=== PATIENT | female | born 1985 | race Caucasian/White ===

== ENCOUNTER 2019-06-28 12:04 | Emergency (ER) | payer SELFPAY ==
[2019-06-28 12:24] VITALS: BP 140/87; PULSE 76; RESP 16; TEMP 36.7; O2SAT 98; BMI 51.0
--- NOTE | 2019-06-28 12:25 | ED_ITS ---
HPI - Extremity Injury (Upper) General: Chief Complaint: General Medical Stated Complaint: thumb pain Time Seen by Provider: 06/28/19 12:25 Source: patient Mode of arrival: ambulatory Limitations: no limitations History of Present Illness: HPI narrative: non-traumatic pain to L thumb x 1-2 days complaint: injury to: left and finger (thumb) Other injuries: none Handedness: left Severity: mild Relieving factors: immobilization Exacerbating factors: movement of extremity Associated symptoms: Reports no associated symptoms Review of Systems Musc: Reports: other (pain to L thumb); Denies: extremity swelling Skin/Breast: Denies: redness or skin swelling PFSH ED PFSH: Statuses (acute, chronic, etc) shown below reflect problem list status as previously entered and may not be historically accurate Medical History (Updated 06/28/19 @ 13:08 by FABIAN Emerson) Amphetamine dependence, in remission (Acute) Generalized anxiety disorder (Acute) Major depressive disorder, recurrent, in full remission (Acute) Nicotine dependence, cigarettes, uncomplicated (Acute) Opioid dependence, in remission (Acute) Sedative, hypnotic or anxiolytic dependence, in remission (Acute) Social History (Updated 06/21/19 @ 16:22 by Thais Najera) Smoking and tobacco status: current some day smoker cigarettes Years cigarettes smoked: 17 and e-cigarettes E-Cigarette Details: vaporizer device E-cig/vape details: all the time Quit status (tobacco): considering quitting Second hand smoke exposure: Yes Smoking risk assessment/counseling performed?: No Reason smoking risk assess ment not done: other Physical Exam Const: COMMON NORMALS: no apparent distress, oriented x3, alert and well nourished Extremity: OTHER: pt with TTP over L MCP thumb and over dorsal surface; full ROM; pain with Anayeli's; no redness/swelling/infection noted Neuro: COMMON NORMALS: oriented x3 SENSORIUM/ORIENTATION: Yes alert Skin: COMMON NORMALS: no rashes or lesions noted GENERAL SKIN EXAM: no rashes or lesions noted Course Vital Signs: Vital signs: Vital Signs Temperature 98.1 F 06/28/19 12:24 Pulse Rate 60 06/28/19 13:15 Respiratory Rate 20 H 06/28/19 13:15 Blood Pressure 149/98 06/28/19 13:15 Pulse Oximetry 98 06/28/19 13:15 MDM - Extremity Injury (Upper) Imaging Data^: L thumb: Radiologist's impression: [address] [address] XRay Report Signed Patient: Elana López Unit #: [id number] : 1985 Acct#:O [id number] Age/Sex: 34 / F ADM Date: 06/28/19 Loc: ER Room/Bed: Attending Dr: Ordering Provider/Ordering MD: Rosa Keene Date of Service: 06/28/19 Procedure(s): XR finger LT min 2V 04902 Accession Number(s): [id number] Report Number: [id number] PROCEDURE INFORMATION: Exam: XR Left Finger(s) Exam date and time: 06/28/2019 12:44 PM Age: 34 years old Clinical indication: Pain; Finger(s); Left; Additional info: Pain; Thumb TECHNIQUE: Imaging protocol: XR Left fingers. Views: Minimum 2 views. COMPARISON: No relevant prior studies available. FINDINGS: Bones/joints: No fracture. No dislocation. Soft tissues: No radiopaque foreign body. XR/XR finger LT min 2V 31862 IMPRESSION: No acute osseous abnormality. Dictated By: Jorgito Wolf Signed By: Jorgito Wolf Signed Date/Time: 06/28/19 1304 DD/ 1303 Discharge Plan Discharge Patient Disposition: Home, Self-Care Clinical Impression: Tendinitis of finger of left hand Condition: Stable Prescriptions: No Action fluoxetine [Prozac] 40 mg capsule 40 mg PO QAM RF: 0 bupropion HCl 150 mg tablet sustained-release 12 hr 150 mg PO QAM Qty: 30 RF: 2 Discharge Orders: Discharge Order (Routine); Ordered 06/28/19 Ordered By: Rosa Keene Referrals: Kenji Almazan MD [Primary Care Provider] - Discharge Diet: Usual diet Discharge Activity: Increase activity as tolerated Patient Instructions: Tendinitis (ED), Tendonitis Activity Restrictions/Additional Instructions: Follow up with primary care in 1-2 weeks for continued pain. Discharge Date/Time: 06/28/19 13:12 Coding Level of Care Code ED Superintendent System Operation for Chg Carla
--- NOTE | 2019-06-28 12:28 | XRR_ITS ---
PROCEDURE INFORMATION: Exam: XR Left Finger(s) Exam date and time: 06/28/2019 12:44 PM Age: 34 years old Clinical indication: Pain; Finger(s); Left; Additional info: Pain; Thumb TECHNIQUE: Imaging protocol: XR Left fingers. Views: Minimum 2 views. COMPARISON: No relevant prior studies available. FINDINGS: Bones/joints: No fracture. No dislocation. Soft tissues: No radiopaque foreign body. XR/XR finger LT min 2V 46084 IMPRESSION: No acute osseous abnormality.
--- NOTE | 2019-06-28 12:45 | PC.NURSE ---
inflammation and pain to right thumb
[2019-06-28 13:15] VITALS: BP 149/98; PULSE 60; RESP 20; O2SAT 98
== END 2019-06-28 13:12 | disposition home or self-care (01) ==
PROVIDERS: Emergency Provider Emergency Medicine; Family Provider Family Medicine; PCP Family Medicine
DX: M77.9 Enthesopathy, unspecified (principal); F17.210 Nicotine dependence, cigarettes, uncomplicated
CPT/HCPCS: 73140; 99281; 99282

== ENCOUNTER 2019-09-08 15:46 | Emergency (ER) | payer SELFPAY ==
[2019-09-08 16:07] VITALS: BP 142/86; PULSE 81; RESP 16; TEMP 36.4; O2SAT 97; BMI 44.2
--- NOTE | 2019-09-08 16:08 | ED_ITS ---
Entered by Cathleen Leger, acting as scribe for Brenda Mcdonald Sep 08, 2019 15:46 HPI - General Adult General: Chief complaint: General Medical Stated complaint: SORE THROAT Time Seen by Provider: 09/08/19 16:05 Source: patient and RN notes reviewed Mode of arrival: ambulatory Limitations: no limitations History of Present Illness: HPI narrative: 34 yo female presents to ED with complaints of a sore throat. She said this began today. She denies cough, fever, muscle aches or pains or any other complaints. MD complaint: sore throat Onset (ago): hour(s) (today) Location: neck (throat) Radiation: non-radiation Severity: mild Quality: aching Pain Consistency: constant Relieving factors: none Exacerbating factors: none Associated symptoms: Reports no associated symptoms; Deny confusion, diaphoresis, dyspnea, headache(s) or malaise Treatments prior to arrival: none Review of Systems General: Reports: other (negative unless marked) Const: Denies: fever, chills, body aches, fatigue, malaise or diaphoresis ENMT: Denies: throat pain, painful swallowing, hoarseness, ear pain, ear discharge or nasal discharge Resp: Denies: shortness of breath, productive cough, non-productive cough, wheezing, coughing up blood or chest congestion Neuro: Denies: headache, numbness in extremities, weakness in extremities, changes in sensation, lack of coordination, difficulty walking, dizziness, vertigo or confusion Endo: Denies: excessive thirst, tired all the time, cold intolerance, excessive sweating, flushing or hot flashes Ishmael/Lymph: Denies: easy bruising, easy bleeding, petechiae or enlarged lymph nodes All/Imm: Denies: hives, throat swelling, tongue swelling, facial swelling or acute wheezing PFS ED PFSH: Medical History (Updated 09/08/19 @ 17:47 by Brenda Mcdonald) Amphetamine dependence, in remission Generalized anxiety disorder Major depressive disorder, recurrent, in full remission Nicotine dependence, cigarettes, uncomplicated Opioid dependence, in remission Sedative, hypnotic or anxiolytic dependence, in remission Social History (Updated 06/21/19 @ 16:22 by Thais Najera) Smoking and tobacco status: current every day smoker cigarettes Years cigarettes smoked: 17 and e-cigarettes E-Cigarette Details: vaporizer device E- cig/vape details: all the time Quit status (tobacco): considering quitting Second hand smoke exposure: Yes Smoking risk assessment/counseling performed?: No Reason smoking risk assessment not done: other Physical Exam Const: COMMON NORMALS: no apparent distress, oriented x3, no limitations, healthy appearing and well nourished EXAM LIMITATIONS: no altered mental status GENERAL APPEARANCE: cooperative, well kempt and well developed ORIENTATION/CONSCIOUSNESS: Yes awake HENMT: COMMON NORMALS: normocephalic, head/scalp atraumatic, hearing grossly normal bilaterally, external ears normal, EAC's normal, external nose normal and moist oral mucous membranes HEAD & SCALP: normocephalic and atraumatic FACE & SINUS: normal facial exam and face symmetric NOSE: external nose normal and nares normal EXTERNAL EAR: Yes external ears normal EXTERNAL AUDITORY CANAL: EAC's normal MOUTH: oral and palatal mucosa normal and tongue normal Eye: COMMON NORMALS: PERRL, EOMs intact bilaterally, conjunctivae normal and no scleral icterus GENERAL EYE: normal appearance of both eyes and normal light reflex CONJUNCTIVA: Yes conjunctivae normal SCLERA: sclerae normal CORNEA: Yes corneas normal PUPIL: Yes PERRL DIRECT OPHTHALMOSCOPY: Yes normal light reflex Neck/C-Spine: COMMON NORMALS: full ROM, no lymphadenopathy, supple, no meningeal signs and no JVD GENERAL: Yes normal visual inspection and Yes trachea midline CERVICAL SPINE: Yes cervical ROM normal Chest: COMMONS NORMALS: inspection of chest normal and palpation of chest normal Resp: COMMON NORMALS: normal respiratory effort, no retractions, no use of accessory muscles and clear to auscultation bilaterally EFFORT & INSPECTION: Yes able to speak in complete sentences AUSCULTATION: clear to auscultation bilaterally Cardio: COMMON NORMALS: no JVD, regular rate, regular rhythm, S1 normal heart sound, S2 normal heart sound, no gallops, no clicks, no murmurs and no rub JUGULAR VENOUS DISTENTION: no JVD RATE: regular rate RHYTHM: regular rhythm HEART SOUNDS: S1 normal and S2 normal GI: COMMON NORMALS: soft to palpation, non-tender, no hepatosplenomegaly and no masses INSPECTION: Yes normal to inspection PALPATION: Yes soft and Yes no hepatosplenomegaly : COMMON NORMALS: Yes no CVA tenderness BLADDER/KIDNEY EXAM: Yes no CVA tenderness Back/Pelvis: COMMON NORMALS: no CVA tenderness, thoracic and lumbar spine normal to inspection, no thoracic nor lumbar tenderness and thoraco-lumbar ROM normal Extremity: COMMON NORMALS: normal to inspection, full ROM, normal capillary refill, no joint enlargement, no clubbing, cyanosis or edema and no calf tenderness Neuro: COMMON NORMALS: oriented x3 MENINGEAL SIGNS: Yes no meningeal signs Psych: APPEARANCE: Yes well kempt Skin: COMMON NORMALS: no rashes or lesions noted, skin turgor normal, no jaundice, no petechiae and no mottling GENERAL SKIN EXAM: no rashes or lesions noted and turgor normal Course Vital Signs: Vital signs: Vital Signs Temperature 97.9 F 09/08/19 17:56 Pulse Rate 74 09/08/19 17:56 Respiratory Rate 16 09/08/19 17:56 Blood Pressure 125/67 09/08/19 17:56 Pulse Oximetry 97 09/08/19 16:07 MDM - General Adult MDM Narrative: Medical decision making narrative: Patient has a sore throat but no difficulty swallowing. I see no evidence of peritonsillar abscess, retropharyngeal abscess or deep space throat infection. She has mild pharyngeal erythema. She has no high risk exposures and declines COVID-19 testing at this time. Lab Data: Attestation: I reviewed the patient's lab results. Labs: Lab Results 09/08/19 09/08/19 Range/Units 16:17 16:17 Influenza Type A A g Negative (Negative) POC Influenza B Ag Negative (Negative) Group A Strep Rapi d Negative (Negative) Discharge Plan Discharge Patient Disposition: Home, Self-Care Clinical Impression: Pharyngitis Qualifiers: Pharyngitis/tonsillitis etiology: unspecified etiology Qualified Code(s): J02.9 - Acute pharyngitis, unspecified Condition: Stable Prescriptions: New amoxicillin 500 mg capsule 500 mg PO TID 10 Days Qty: 30 RF: 0 No Action fluoxetine [Prozac] 40 mg capsule 40 mg PO QAM RF: 0 Discharge Orders: Discharge Order (Routine); Ordered 09/08/19 Ordered By: Brenda Mcdonald Referrals: Kenji Almazan MD [Primary Care Provider] - 1-3 days Discharge Diet: Advance as tolerated Discharge Activity: Increase activity as tolerated Patient Instructions: Pharyngitis (ED) Activity Restrictions/Additional Instructions: Please return to the ER immediately for any of the signs or symptoms listed on your discharge instruction sheets, worsening/changing of your symptoms, you are not getting better as quickly as expected, or for ANY other cause or concerns. If you change your mind and want COVID-19 testing return to the ER for testing. Discharge Date/Time: 09/08/19 17:56 Coding Level of Care Code ED Medical Reviewer for Chg Fwd Exam Comprehensive The documentation recorded by the Arsen castanon Valerie R, accurately reflects the service I personally performed and the decisions made by , Brenda Mcdonald Sep 08, 2019 15:46
[2019-09-08 17:22] LABS: Rapid Strep A Test Negative (Negative)
[2019-09-08 17:33] LABS: Influenza A by IFA Negative (Negative); Influenza B by IFA Negative (Negative)
[2019-09-08 17:56] VITALS: BP 125/67; PULSE 74; RESP 16; TEMP 36.6
== END 2019-09-08 17:56 | disposition home or self-care (01) ==
PROVIDERS: Emergency Provider Emergency Medicine; Family Provider Family Medicine; PCP Family Medicine
DX: J02.9 Acute pharyngitis, unspecified (principal); F17.210 Nicotine dependence, cigarettes, uncomplicated
CPT/HCPCS: 12345; 87081; 87804; 87880; 99282

== ENCOUNTER 2020-04-09 20:00 | Outpatient (CLI) | payer SELFPAY | END 2020-04-09 20:01 | disposition home or self-care (01) | LOC: SLEEP 04-10 08:57 | PROVIDERS: Family Provider Family Medicine; Visit Provider Psychiatry & Neurology Psychiatry | DX: G47.33 Obstructive sleep apnea (adult) (pediatric) (principal) | CPT/HCPCS: 95810 ==

== ENCOUNTER 2020-06-17 08:47 | Emergency (ER) | payer SELFPAY ==
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
[2020-06-17 08:54] VITALS: BP 164/82; PULSE 89; RESP 18; TEMP 36.6; O2SAT 100; BMI 53.1
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
[2020-06-17 09:36] VITALS: BP 137/68; RESP 18; O2SAT 97
== END 2020-06-17 09:38 | disposition home or self-care (01) ==
PROVIDERS: Emergency Provider Physician Assistant
DX: S60.041A Contusion of right ring finger without damage to nail, initial encounter (principal); Y04.2XXA Assault by strike against or bumped into by another person, initial encounter; F17.290 Nicotine dependence, other tobacco product, uncomplicated
CPT/HCPCS: 12345; 73140; 99281; 99282

== ENCOUNTER 2020-06-27 20:00 | Outpatient (CLI) | payer SELFPAY | END 2020-06-27 20:01 | disposition home or self-care (01) | LOC: SLEEP 06-28 10:09 | PROVIDERS: Visit Provider Psychiatry & Neurology Psychiatry | DX: G47.33 Obstructive sleep apnea (adult) (pediatric) (principal) | CPT/HCPCS: 95811 ==

== ENCOUNTER → 2020-09-03 13:04 | Outpatient (BNVA) | payer MEDICAID, SELFPAY | PROVIDERS: Visit Provider Nurse Practitioner Family | DX: Z20.822 Contact with and (suspected) exposure to COVID-19 (principal) | CPT/HCPCS: 87635 ==

== ENCOUNTER → 2020-09-12 14:00 | Outpatient (BNVA) | payer SELFPAY | PROVIDERS: Visit Provider Psychiatry & Neurology Psychiatry | DX: F33.42 Major depressive disorder, recurrent, in full remission (principal); F41.1 Generalized anxiety disorder; G47.33 Obstructive sleep apnea (adult) (pediatric); F15.21 Other stimulant dependence, in remission; F11.21 Opioid dependence, in remission; F13.21 Sedative, hypnotic or anxiolytic dependence, in remission; F17.210 Nicotine dependence, cigarettes, uncomplicated | CPT/HCPCS: 99214 ==

== ENCOUNTER 2020-10-02 14:57 | Emergency (ER) | payer SELFPAY ==
[2020-10-02 14:58] VITALS: BP 127/96; PULSE 110; RESP 16; TEMP 36.7; O2SAT 97; BMI 52.7
[2020-10-02 15:11] VITALS: BP 127/96; PULSE 106; O2SAT 96
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
[2020-10-02 15:53] VITALS: BP 155/101; PULSE 106; O2SAT 98
== END 2020-10-02 15:54 | disposition home or self-care (01) ==
LOC: ER 15:45
PROVIDERS: Emergency Provider Family Medicine; PCP Family Medicine
DX: T65.91XA Toxic effect of unspecified substance, accidental (unintentional), initial encounter (principal); F41.8 Other specified anxiety disorders; F17.210 Nicotine dependence, cigarettes, uncomplicated
CPT/HCPCS: 99283

== ENCOUNTER 2020-10-02 16:45 | Inpatient (IN) | payer SELFPAY ==
[2020-10-02 16:47] VITALS: BP 164/99; PULSE 109; RESP 18; O2SAT 97; BMI 52.7
--- NOTE | 2020-10-02 17:18 | W.ED.PSYCH ---
HPI - Psych General: Chief Complaint: Psychiatric Symptoms Stated Complaint: 96 Time Seen by Provider: 10/02/20 16:52 History of Present Illness: HPI Narrative: 31 yo female presents to the emergency room. She was here within the hour. She had taken extra Prozac in an attempt to calm herself down anticipating it would work like an antianxiety medicine in the short-term. She denies any suicidal or homicidal ideation. Reviewed the case with psychiatry and they recommended discharge and short-term follow-up with behavioral health where she sees Dr. Michel. At the time we are seeing her the family evidently was signing affidavits that the court house and shortly thereafter she returned and now has a 96-hour hold. MD complaint: feels depressed Duration: intermittent Relieving factors: none Exacerbating factors: none Associated symptoms: Deny auditory hallucinations, visual hallucinations, delusions, depression, homicidal ideation, suicidal ideation or racing thoughts Review of Systems Const: Denies: fever(s), chills, body aches, change in appetite, fatigue or malaise ENMT: Denies: throat pain, ear or mastoid pain, nasal discharge or nasal congestion Card: Denies: chest pain, edema, dyspnea on exertion or orthopnea Resp: Denies: dyspnea, productive cough or non-productive cough GI: Denies: abdominal pain, nausea, vomiting, hematemesis, coffee ground emesis, diarrhea, constipation, bloating, hematochezia or melena : Denies: flank pain, difficulty voiding, dysuria, urinary frequency or urinary urgency Skin/Breast: Denies: rash or pruritus Psych: Denies: depression, visual hallucinations, auditory hallucinations, suicidal ideation or homicidal ideation [facility] ED PFSH: Medical History Amphetamine dependence, in remission Generalized anxiety disorder Major depressive disorder, recurrent, in full remission Nicotine dependence, cigarettes, uncomplicated Opioid dependence, in remission Sedative, hypnotic or anxiolytic dependence, in remission Social History Smoking and tobacco status: current every day smoker cigarettes Years cigarettes smoked: 17 and e-cigarettes E-Cigarette Details: vaporizer device E-cig/vape details: all the time Quit status (tobacco): considering quitting Second hand smoke exposure: Yes Smoking risk assessment/counseling performed?: No Reason smoking risk assessment not done: other Physical Exam Const: COMMON NORMALS: no acute distress GENERAL APPEARANCE: cooperative and comfortable ORIENTATION/CONSCIOUSNESS: Yes awake, Yes oriented to person, Yes oriented to place and Yes oriented to time HENMT: COMMON NORMALS: normocephalic, atraumatic, hearing grossly normal bilaterally, external ears normal, EAC's normal, TM's normal bilaterally, Normal nasal mucous membranes and turbinates present, moist oral mucous membranes and oropharynx normal HEAD & SCALP: normocephalic and atraumatic NOSE: Normal nasal mucous membranes and turbinates present EXTERNAL EAR: Yes external ears normal EXTERNAL AUDITORY CANAL: EAC's normal TYMPANIC MEMBRANE: TM's normal bilaterally Eye: COMMON NORMALS: Equal, round and reactive pupils present, EOMs intact bilaterally, conjunctivae normal and no scleral icterus CONJUNCTIVA: Yes conjunctivae normal PUPIL: Yes Equal, round and reactive pupils present Neck/C-Spine: COMMON NORMALS: full ROM, no lymphadenopathy, supple and no JVD Lymph: LYMPHATIC: no lymphadenopathy noted and no lymphedema noted Resp: COMMON NORMALS: normal respiratory effort, No retractions, No use of accessory muscles and clear to auscultation bilaterally AUSCULTATION: clear to auscultation bilaterally Cardio: COMMON NORMALS: no JVD, regular rate, regular rhythm and No murmurs present (Cardio) RATE: regular rate RHYTHM: regular rhythm GI: COMMON NORMALS: Soft to palpation and No hepatosplenomegaly present AUSCULTATION: Yes normoactive bowel sounds PALPATION: Yes Soft to palpation, No Tenderness to palpation present (GI), No Guarding due to palpation present (GI) and Yes No hepatosplenomegaly present Extremity: COMMON NORMALS: normal to inspection, capillary refill normal, no clubbing, cyanosis or edema, no calf tenderness and no pedal edema Neuro: SENSORIUM/ORIENTATION: Yes oriented to person, Yes oriented to place and Yes oriented to time Psych: THOUGHT CONTENT: No delusions Skin: COMMON NORMALS: no rashes or lesions noted GENERAL SKIN EXAM: no rashes or lesions noted MDM - Psych MDM Narrative: Medical decision making narrative: Discussed with Dr. Ely. Reviewed that the patient had been here just within the last hour. He wished to place patient on the MPU floor on a 96-hour hold if I will reevaluate morning. Orders are written. Discharge Plan Discharge Patient Disposition: Admitted As Inpatient Admit Provider: Lisy Ely Clinical Impression: Depressive disorder Condition: Stable Discharge Diet: Regular Discharge Activity: Resume usual activity Coding Level of Care Code ED Director Medical Safety for Geoffrey Aguirre
[2020-10-02 18:20] LABS: Basophils % 0.3 %; Eosinophils % 0.4 %; Hematocrit 45.7 % (37.0-47.0); Hemoglobin 15.1 g/dL (11.5-15.3); Lymphocytes # 2.3 10^3/uL (0.8-4.8); Lymphocytes % 22.8 %; Mean Corpuscular Hemoglobin 30.3 pg (28.0-34.0); Mean Corpuscular Volume 91.8 fL (81-99); Mean Platelet Volume 10.9 fL (7.4-10.4); Monocytes # 0.6 10^3/uL (0.2-0.9); Monocytes % 5.8 %; Neutrophils % 70.4 %; Nucleated Red Blood Cells % 0 %; Platelet Count 301 10^3/cmm (130-400); Red Blood Count 4.98 10^6/uL (4.1-5.3); Red Cell Distribution Width 13.2 % (12.1-15.1)
[2020-10-02 18:28] LABS: Alanine Aminotransferase 40 U/L (0-33); Albumin Level 4.6 g/dL (3.5-5.2); Alkaline Phosphatase 126 IU/L (35-105); Anion Gap 14.7 (5-19); Aspartate Amino Transferase 26 U/L (0-32); Blood Urea Nitrogen 8 mg/dL (6-20); Calcium 9.3 mg/dL (8.5-10.5); Carbon Dioxide 25 mmol/L (22-29); Chloride 102 mmol/L (98-107); Globulin 3.1 g/dL (1.3-4.6); Glomerular Filtration Rate 82.1 mL/min (90-130); Glucose 125 mg/dL (65-115); Osmolality Calculated 286 mOsm/kg (285-295); Potassium 3.7 mmol/L (3.5-5.1); Sodium 138 mmol/L (136-145); Total Bilirubin 0.7 mg/dL (0.15-1.2); Total Protein 7.7 g/dL (6.6-8.7)
[2020-10-02 18:29] LABS: Acetaminophen < 5.0 ug/mL (10-30); Salicylate < 0.3 mg/dL (3-10)
[2020-10-02 18:36] LABS: Amphetamines Screen Urine Positive (Negative); Barbiturates Screen Urine Negative (Negative); Benzodiazepines Screen Urine Positive (Negative); Cocaine Screen Urine Negative (Negative); Opiate Screen Urine Negative (Negative); PCP Screen Urine Negative (Negative); THC Screen Urine Positive (Negative)
[2020-10-02 21:39] VITALS: BP 153/103; PULSE 78; RESP 18; TEMP 37.2; O2SAT 100
[2020-10-02 22:00] VITALS: BP 153/103; PULSE 78; RESP 18; TEMP 37.2; O2SAT 100
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
[2020-10-03 06:00] VITALS: BP 143/92; PULSE 81; RESP 15; TEMP 36.9; O2SAT 96
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
[2020-10-03 10:29] VITALS: BP 143/92; PULSE 81; RESP 15; TEMP 36.9; O2SAT 96
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
--- NOTE | 2020-10-05 15:53 | PC.RESP ---
Smoking Cessation information sent to patient.
== END 2020-10-03 11:06 | disposition home or self-care (01) | DRG 882 ==
LOC: ER 17:37 → NP 17:46
PROVIDERS: Admitting Provider Psychiatry & Neurology Psychiatry; Emergency Provider Family Medicine; PCP Family Medicine; Visit Provider Psychiatry & Neurology Psychiatry
DX: F43.23 Adjustment disorder with mixed anxiety and depressed mood (principal); F19.10 Other psychoactive substance abuse, uncomplicated; F12.10 Cannabis abuse, uncomplicated; F32.9 Major depressive disorder, single episode, unspecified; F41.1 Generalized anxiety disorder; Z91.14 Patient's other noncompliance with medication regimen; F17.210 Nicotine dependence, cigarettes, uncomplicated; Z91.5 Personal history of self-harm; F17.290 Nicotine dependence, other tobacco product, uncomplicated
CPT/HCPCS: 80053; 80306; 80307; 85025; 99285

== ENCOUNTER 2021-01-26 19:03 | Emergency (ER) | payer MEDICAID, SELFPAY ==
[2021-01-26 19:17] VITALS: BP 159/85; PULSE 69; RESP 17; TEMP 36.7; O2SAT 98; BMI 49.2
--- NOTE | 2021-01-26 19:23 | W.ED.EYEPROB ---
HPI - Eye Problem General: Chief complaint: Eye Problems Stated complaint: Dog Scatched Eye Ball\Medicine is burning Time Seen by Provider: 01/26/21 19:22 History of Present Illness: HPI Narrative: Patient is a 36-year-old female comes to the ED with an injury. Patient was scratched by her dog on the left eye this morning. Patient went to urgent care and was evaluated there and diagnosed with a corneal abrasion and discharged home with a prescription for ofloxacin eyedrops. Return to the ED due to the pain in her left eye and says the eyedrops cause burning in her left eye right after use. Patient is up-to-date on her tetanus. Associated symptoms: Denies fever(s), headache(s), nausea, neck pain or vomiting Review of Systems Const: Denies: fever(s), chills or fatigue Eyes: Reports: blurry vision (left eye), eye discomfort (left eye) and eye redness (left eye); Denies: change in vision ENMT: Denies: throat pain, odynophagia, nasal discharge or nasal congestion Card: Denies: chest pain, palpitations, edema, swelling of feet/ankles, dyspnea on exertion or orthopnea Resp: Denies: dyspnea, productive cough or non-productive cough GI: Denies: abdominal pain, nausea, vomiting, diarrhea, constipation or hematochezia : Denies: flank pain, dysuria or hematuria Musc: Denies: neck pain, back pain or extremity swelling Skin/Breast: Denies: rash or new lesions Neuro: Denies: headache(s), numbness in extremities or weakness in extremities PFSH ED PFSH: Medical History Amphetamine dependence, in remission Generalized anxiety disorder Major depressive disorder, recurrent, in full remission Nicotine dependence, cigarettes, uncomplicated Opioid dependence, in remission Sedative, hypnotic or anxiolytic dependence, in remission Social History Smoking and tobacco status: current every day smoker cigarettes Years cigarettes smoked: 17 and e-cigarettes E-Cigarette Details: vaporizer device E-cig/vape details: all the time Quit status (tobacco): considering quitting Second hand smoke exposure: Yes Smoking risk assessment/counseling performed?: No Reason smoking risk assessment not done: other Physical Exam Const: COMMON NORMALS: patient oriented x3 and alert GENERAL APPEARANCE: cooperative; not comfortable (Patient appears uncomfortable due to left eye pain) HENMT: COMMON NORMALS: normocephalic HEAD & SCALP: normocephalic MOUTH: Normal oral and palatal mucosa present THROAT: posterior oropharynx normal and uvula midline Eye: COMMON NORMALS: Equal, round and reactive pupils present and EOMs intact bilaterally PERIORBITAL: periorbital findings normal CONJUNCTIVA: Yes conjunctival abnormal positive left conjunctival injection diffuse CORNEA: Yes fluorescein used (Corneal abrasion noted after fluorescein dye and lamp exam) PUPIL: Yes Equal, round and reactive pupils present SLIT LAMP EXAM: Yes slit lamp exam performed with fluorescein OTHER: Patient has a corneal abrasion on left eye. Neck/C-Spine: COMMON NORMALS: supple GENERAL: Yes normal visual inspection Resp: COMMON NORMALS: normal respiratory effort, No retractions, No use of accessory muscles and clear to auscultation bilaterally AUSCULTATION: clear to auscultation bilaterally Cardio: COMMON NORMALS: regular rate, regular rhythm, S1 normal heart sound present, S2 normal heart sound present, No gallops present (Cardio), No clicks present (Cardio), No murmurs present (Cardio) and Peripheral pulses 2+ throughout RATE: regular rate RHYTHM: regular rhythm HEART SOUNDS: S1 normal heart sound present and S2 normal heart sound present PERIPHERAL PULSES: Peripheral pulses 2+ throughout GI: COMMON NORMALS: Normal to inspection, nondistended, normoactive bowel sounds present, Soft to palpation, non-tender and no masses PALPATION: Yes Soft to palpation : COMMON NORMALS: Yes no CVA tenderness BLADDER/KIDNEY EXAM: Yes no CVA tenderness Back/Pelvis: COMMON NORMALS: no CVA tenderness Extremity: COMMON NORMALS: normal to inspection Neuro: COMMON NORMALS: patient oriented x3 and moves all extremities SENSORIUM/ORIENTATION: Yes alert Skin: GENERAL SKIN EXAM: dry skin Course Vital Signs: Vital signs: Vital Signs Temperature 98.1 F 01/26/21 19:17 Pulse Rate 69 01/26/21 19:17 Respiratory Rate 17 01/26/21 19:17 Blood Pressure 159/85 01/26/21 19:17 Pulse Oximetry 98 01/26/21 19:17 MDM - Eye Problem MDM Narrative: Medical decision making narrative: Patient is a 36-year-old female who comes to the ED with left eye injury. Puppy scratched patient's left eye with paw. Exam using fluorescein dye and lamp shows corneal abrasion on left eye. Patient was given a dose of erythromycin eye ointment and hydrocodone while here in the ED. Patient was discharged with a prescription for erythromycin eye ointment and a written prescription for hydrocodone 5/325 mg #8 tablets for pain. She was told to follow-up with Dr. Waddell at his clinic on Thursday and I gave her the contact information to Dr. Waddell clinic. Return to ED precautions given. Patient understood and agree with plan. Discharge Plan Discharge Patient Disposition: Home Clinical Impression: Corneal abrasion Qualifiers: Encounter type: initial encounter Laterality: left Qualified Code(s): S05.02XA - Injury of conjunctiva and corneal abrasion without foreign body, left eye, initial encounter Condition: Stable Prescriptions: New erythromycin 5 mg/gram (0.5 %) ointment 1 applic ophthalmic (eye) Q6H 7 Days Qty: 3.5 RF: 0 No Action ofloxacin 0.3 % drops 2 drp ophthalmic (eye) QID 7 Days Qty: 5 RF: 0 fluoxetine [Prozac] 20 mg capsule 20 mg PO DAILY Qty: 30 RF: 11 Discharge Orders: Discharge ED (Routine); Ordered 01/26/21 Ordered By: Willem Child Referrals: Kenji Almazan MD [Primary Care Provider] - Discharge Diet: Regular Discharge Activity: Resume usual activity Patient Instructions: Erythromycin (Into the eye), Corneal Abrasion (ED), Opioid Safety Activity Restrictions/Additional Instructions: Follow-up with medical provider as directed. Call Dr. Waddell eye clinic on Thursday phone number is [phone]. Address is [facility] [address] Jim Uribe. take medications as prescribed. Return to the ER or your medical provider if condition worsens. Please read and understand discharge instructions. If any questions, please ask. Coding Level of Care Code ED Heavy Duty Diesel Mechanic for Geoffrey Fwyen Exam Comprehensive
[2021-01-26] MEDS: tetracaine 0.5% Op Soln 4 mL Btl 1 DROP EYE-LEFT (19:50)
[2021-01-26] MEDS: eye irrigation 30 mL Btl EYE-LEFT (19:50)
[2021-01-26] MEDS: fluorescein 1 mg Strip EYE-LEFT (19:50)
[2021-01-26] MEDS: HYDROcodone-acetaminophen 7.5-325 mg Tablet 1 TAB PO (20:37)
[2021-01-26] MEDS: neomycin-poly-dex Op oint 3.5 gm 1 APPLIC EYE-LEFT (20:45)
== END 2021-01-26 21:17 | disposition home or self-care (01) ==
PROVIDERS: Emergency Provider Physician Assistant; PCP Family Medicine
DX: S05.02XA Injury of conjunctiva and corneal abrasion without foreign body, left eye, initial encounter (principal); F17.210 Nicotine dependence, cigarettes, uncomplicated; W54.8XXA Other contact with dog, initial encounter
CPT/HCPCS: 99283

== ENCOUNTER → 2021-05-28 07:24 | Outpatient (BNVA) | payer BC, SELFPAY | PROVIDERS: PCP Family Medicine; Visit Provider Psychiatry & Neurology Psychiatry | DX: F33.42 Major depressive disorder, recurrent, in full remission (principal); F41.1 Generalized anxiety disorder; G47.33 Obstructive sleep apnea (adult) (pediatric); F13.21 Sedative, hypnotic or anxiolytic dependence, in remission; F15.21 Other stimulant dependence, in remission; F11.21 Opioid dependence, in remission; F17.210 Nicotine dependence, cigarettes, uncomplicated | CPT/HCPCS: 99213 ==

== ENCOUNTER 2021-06-30 03:52 | Emergency (ER) | payer BC, MEDICAID, SELFPAY ==
[2021-06-30 03:59] VITALS: BP 133/84; PULSE 99; RESP 18; TEMP 36.6; O2SAT 99; BMI 51.2
--- NOTE | 2021-06-30 04:05 | XRR_ITS ---
PROCEDURE INFORMATION: Exam: XR Right Foot Exam date and time: 06/30/2021 4:05 AM Age: 36 years old Clinical indication: Pain and injury or trauma; Fall; Sprain or strain; Foot; Right; Additional info: Fall 2 days ago TECHNIQUE: Imaging protocol: XR Right foot. Views: 3 or more views. COMPARISON: No relevant prior studies available. FINDINGS: Bones/joints: There is no acute fracture or dislocation. If symptoms persist, follow-up imaging in several days may be useful to exclude an occult fracture. No other significant acute bone or joint abnormality. Soft tissues: Prominent soft tissue swelling over the lateral aspect of the ankle and hindfoot, and the medial hindfoot. Evidence for apparent ankle joint effusion. XR/XR foot RT min 3V* [id number] IMPRESSION: 1. No definite acute fracture or dislocation. 2. Suspected ankle joint effusion. 3. Other findings discussed above
--- NOTE | 2021-06-30 04:05 | XRR_ITS ---
PROCEDURE INFORMATION: Exam: XR Right Ankle Exam date and time: 06/30/2021 4:05 AM Age: 36 years old Clinical indication: Pain and injury or trauma; Sprain or strain; Ankle; Right; Injury details: Fall 2 days ago TECHNIQUE: Imaging protocol: XR Right ankle. Views: 3 or more views. COMPARISON: No relevant prior studies available. FINDINGS: Bones/joints: On the AP view only, subtle 1.5 mm ossific density adjacent to the tip of the medial malleolus. This could represent evidence for a subtle avulsion injury/fracture, although this could be a chronic appearance. Please correlate clinically. There is no other acute fracture or dislocation. If symptoms persist, follow-up imaging in several days may be useful to exclude an occult fracture. No other significant acute bone or joint abnormality. Soft tissues: Prominent soft tissue swelling over the lateral aspect of the ankle and hindfoot. Evidence for apparent ankle joint effusion. XR/XR ankle RT min 3V* [id number] IMPRESSION: 1. Subtle 1.5 mm ossific density adjacent to the tip of the medial malleolus. This could represent evidence for a subtle avulsion injury/fracture, although this could be a chronic appearance. Please correlate clinically. 2. No other definite acute fracture or dislocation. 3. Suspected ankle joint effusion. 4. Other findings discussed above
--- NOTE | 2021-06-30 04:06 | W.ED.FALL ---
HPI - Fall General: Chief Complaint: Fall Stated Complaint: fell on ankle Time Seen by Provider: 06/30/21 03:54 Source: patient Mode of arrival: ambulatory Limitations: no limitations History of Present Illness: HPI Narrative: 36-year-old female states that she was on the couch Thursday foot was asleep set up and twisted her right ankle when she stood up. States she had fell and having right ankle pain since then states she has been able to walk but has pain with walking on that foot. States pain is over the lateral ankle and the lateral foot she rates her pain a 4/10 worse with ambulation improved with rest denies any knee pain or any other injuries from her fall. Associated symptoms-after fall: Denies abdominal pain, chest pain or headache(s) Review of Systems Const: Denies: fever(s), chills, body aches or change in appetite Eyes: Denies: blurry vision or eye discomfort ENMT: Denies: throat pain or dental pain Card: Denies: chest pain Resp: Denies: dyspnea GI: Denies: abdominal pain, nausea, vomiting or diarrhea : Denies: dysuria Musc: Reports: extremity pain Skin/Breast: Denies: rash Neuro: Denies: headache(s) Psych: Denies: depression Ishmael/Lymph: Denies: easy bruising All/Imm: Denies: urticaria PFS ED PFSH: Medical History Amphetamine dependence, in remission Generalized anxiety disorder Major depressive disorder, recurrent, in full remission Nicotine dependence, cigarettes, uncomplicated Opioid dependence, in remission Psychiatric care Sedative, hypnotic or anxiolytic dependence, in remission Social History Smoking and tobacco status: current every day smoker (.5 pack a day ) cigarettes Packs smoked per day: 0.5 Years cigarettes smoked: 17 and e-cigarettes E-Cigarette Details: vaporizer device E-cig/vape details: all the time Quit status (tobacco): considering quitting Second hand smoke exposure: Yes Smoking risk assessment/counseling performed?: No Reason smoking risk assessment not done: other Physical Exam Const: COMMON NORMALS: no acute distress, patient oriented x3 and healthy appearing HENMT: COMMON NORMALS: normocephalic and atraumatic HEAD & SCALP: normocephalic and atraumatic Eye: COMMON NORMALS: Equal, round and reactive pupils present and EOMs intact bilaterally PUPIL: Yes Equal, round and reactive pupils present Neck/C-Spine: COMMON NORMALS: full ROM and supple Chest: COMMONS NORMALS: normal inspection of the chest and normal palpation of entire chest wall Resp: COMMON NORMALS: normal respiratory effort, No retractions, No use of accessory muscles and clear to auscultation bilaterally AUSCULTATION: clear to auscultation bilaterally Cardio: COMMON NORMALS: regular rate, regular rhythm and No murmurs present (Cardio) RATE: regular rate RHYTHM: regular rhythm GI: COMMON NORMALS: Normal to inspection, nondistended, normoactive bowel sounds present, Soft to palpation, non-tender and no masses PALPATION: Yes Soft to palpation Extremity: COMMON NORMALS: normal to inspection and full ROM NARRATIVE EXTREMITY EXAM: slight tenderness over right lateral foot and ankle Neuro: COMMON NORMALS: patient oriented x3, moves all extremities and no focal motor deficits Psych: COMMON NORMALS: mental status grossly normal, Normal thought process present and cooperative THOUGHT PROCESS: Normal thought process present Skin: COMMON NORMALS: no rashes or lesions noted and no wounds GENERAL SKIN EXAM: no rashes or lesions noted Course Vital Signs: Vital signs: Vital Signs Temperature 98 F 06/30/21 03:59 Pulse Rate 99 06/30/21 03:59 Respiratory Rate 18 06/30/21 03:59 Blood Pressure 133/84 06/30/21 03:59 Pulse Oximetry 99 06/30/21 03:59 MDM - Fall MDM Narrative: Medical decision making narrative: Patient presents here with ankle and foot pain from a fall. X-rays here shows no acute fractures likely an ankle sprain placed in Jasmeet wrap here she is to weight-bear as tolerated we will get her crutches placed on Naprosyn she is to follow-up PCP and return if worsening. Discharge Plan Discharge Patient Disposition: Home Clinical Impression: Sprain of ankle Qualifiers: Encounter type: initial encounter Involved ligament of ankle: unspecified ligament Laterality: right Qualified Code(s): S93.401A - Sprain of unspecified ligament of right ankle, initial encounter Condition: Stable Prescriptions: New Naprosyn 500 mg tablet 500 mg PO BID PRN (Reason: pain) Qty: 20 RF: 0 No Action fluoxetine [Prozac] 20 mg capsule 20 mg PO DAILY Qty: 30 RF: 11 Discharge Orders: Discharge ED (Routine); Ordered 06/30/21 Ordered By: Saul Ray Referrals: Kenji Almazan MD [Primary Care Provider] - 1-3 days Discharge Diet: Advance as tolerated Discharge Activity: Increase activity as tolerated Patient Instructions: Ankle Sprain (ED) Coding Level of Care Code ED Client Support Professional for Chg Fwd Exam Comprehensive
[2021-06-30] MEDS: naproxen 500 mg Tablet PO (04:16)
== END 2021-06-30 04:39 | disposition home or self-care (01) ==
PROVIDERS: Emergency Provider Emergency Medicine; PCP Family Medicine
DX: S93.401A Sprain of unspecified ligament of right ankle, initial encounter (principal); F17.210 Nicotine dependence, cigarettes, uncomplicated; X50.1XXA Overexertion from prolonged static or awkward postures, initial encounter
CPT/HCPCS: 73610; 73630; 99283

== ENCOUNTER 2021-09-08 05:38 | Emergency (ER) | payer BC, MEDICAID, SELFPAY ==
[2021-09-08 06:04] VITALS: PULSE 62; RESP 18; TEMP 36.7; O2SAT 97; BMI 49.6
[2021-09-08 06:10] VITALS: BP 125/79
--- NOTE | 2021-09-08 06:17 | W.ED.EYEPROB ---
HPI - Eye Problem General: Chief complaint: Eye Problems Stated complaint: LT eye wont open Time Seen by Provider: 09/08/21 06:13 Source: patient Mode of arrival: ambulatory Limitations: no limitations History of Present Illness: 36-year-old female states been having eye pain over the last 2 days. She states she has had erythema difficulty opening eye along with drainage she states she was scratched by dog last year caused her to have a laceration of her lid she had been following ophthalmology but been having no issues. Denies any fevers denies any worsening improving factors. Associated symptoms: Denies fever(s), headache(s), nausea, neck pain or vomiting Review of Systems Const: Denies: fever(s), chills, body aches or change in appetite Eyes: Reports: eye discharge and eye redness ENMT: Denies: throat pain or dental pain Card: Denies: chest pain Resp: Denies: dyspnea GI: Denies: abdominal pain, nausea, vomiting or diarrhea : Denies: dysuria Musc: Denies: neck pain or back pain Skin/Breast: Denies: rash Neuro: Denies: headache(s) Psych: Denies: depression Ishmael/Lymph: Denies: easy bruising All/Imm: Denies: urticaria PFSH ED PFSH: Medical History Amphetamine dependence, in remission Generalized anxiety disorder Major depressive disorder, recurrent, in full remission Nicotine dependence, cigarettes, uncomplicated Opioid dependence, in remission Psychiatric care Sedative, hypnotic or anxiolytic dependence, in remission Social History Smoking and tobacco status: current every day smoker (.5 pack a day ) cigarettes Packs smoked per day: 0.5 Years cigarettes smoked: 17 and e-cigarettes E-Cigarette Details: vaporizer device E-cig/vape details: all the time Quit status (tobacco): considering quitting Second hand smoke exposure: Yes Smoking risk assessment/counseling performed?: No Reason smoking risk assessment not done: other Physical Exam Const: COMMON NORMALS: no acute distress, patient oriented x3 and healthy appearing HENMT: COMMON NORMALS: normocephalic and atraumatic HEAD & SCALP: normocephalic and atraumatic Eye: COMMON NORMALS: Equal, round and reactive pupils present and EOMs intact bilaterally PUPIL: Yes Equal, round and reactive pupils present OTHER: Coronary ulcerated noted under fluorescein stain Neck/C-Spine: COMMON NORMALS: full ROM and supple Chest: COMMONS NORMALS: normal inspection of the chest and normal palpation of entire chest wall Resp: COMMON NORMALS: normal respiratory effort, No retractions, No use of accessory muscles and clear to auscultation bilaterally AUSCULTATION: clear to auscultation bilaterally Cardio: COMMON NORMALS: regular rate, regular rhythm and No murmurs present (Cardio) RATE: regular rate RHYTHM: regular rhythm GI: COMMON NORMALS: Normal to inspection, nondistended, normoactive bowel sounds present, Soft to palpation, non-tender and no masses PALPATION: Yes Soft to palpation Extremity: COMMON NORMALS: normal to inspection and full ROM Neuro: COMMON NORMALS: patient oriented x3, moves all extremities and no focal motor deficits Psych: COMMON NORMALS: mental status grossly normal, Normal thought process present and cooperative THOUGHT PROCESS: Normal thought process present Skin: COMMON NORMALS: no rashes or lesions noted and no wounds GENERAL SKIN EXAM: no rashes or lesions noted Course Vital Signs: Vital signs: Vital Signs Temperature 98.0 F 09/08/21 06:04 Pulse Rate 62 09/08/21 06:04 Respiratory Rate 18 09/08/21 06:04 Blood Pressure 125/79 09/08/21 06:10 Pulse Oximetry 97 09/08/21 06:04 MDM - Eye Problem Medical Decision Making Patient presents here with likely corneal ulcer will place patient with Romycin have her follow-up with ophthalmology she is stable for discharge at this time. Discharge Plan Discharge Patient Disposition: Home Clinical Impression: Corneal ulcer Qualifiers: Laterality: left Qualified Code(s): H16.002 - Unspecified corneal ulcer, left eye Condition: Stable Prescriptions: New erythromycin 5 mg/gram (0.5 %) ointment 1 applic ophthalmic (eye) BID 7 Days Qty: 3.5 0RF Naprosyn 500 mg tablet 500 mg PO BID PRN (Reason: pain) Qty: 20 0RF No Action fluoxetine [Prozac] 20 mg capsule 20 mg PO DAILY Qty: 30 11RF Naprosyn 500 mg tablet 500 mg PO BID PRN (Reason: pain) Qty: 20 0RF Discharge Orders: Discharge ED (Routine); Ordered 09/08/21 Ordered By: Saul Ray Referrals: Johann Waddell MD [Physician] - 1-3 days Kenji Almazan MD [Primary Care Provider] - Discharge Diet: Advance as tolerated Discharge Activity: Resume usual activity Patient Instructions: Corneal Ulcer (ED) Coding Level of Care Code ED Compliance Technician for Geoffrey Aguirre
--- NOTE | 2021-09-09 14:43 | DCPLANNER ---
manager contract had message to schedule a follow up appointment for patient with Dr. Waddell. The office of Dr. Waddell called pillowcase cleaner requesting records, patient was at their office. manager contract faxed patients records to the office of Dr. Waddell. Patient did attend follow up appointment.
== END 2021-09-08 06:40 | disposition home or self-care (01) ==
PROVIDERS: Emergency Provider Emergency Medicine; PCP Family Medicine
DX: H16.002 Unspecified corneal ulcer, left eye (principal); F17.210 Nicotine dependence, cigarettes, uncomplicated; F17.290 Nicotine dependence, other tobacco product, uncomplicated
CPT/HCPCS: 99282

== ENCOUNTER → 2021-09-11 08:18 | Outpatient (BNVA) | payer BC, MEDICAID, SELFPAY | PROVIDERS: PCP Family Medicine; Visit Provider Psychiatry & Neurology Psychiatry | DX: F33.42 Major depressive disorder, recurrent, in full remission (principal); F41.1 Generalized anxiety disorder; G47.33 Obstructive sleep apnea (adult) (pediatric); F17.210 Nicotine dependence, cigarettes, uncomplicated; F11.21 Opioid dependence, in remission; F15.21 Other stimulant dependence, in remission; F13.21 Sedative, hypnotic or anxiolytic dependence, in remission | CPT/HCPCS: 99214 ==

== ENCOUNTER 2022-01-14 06:22 | Emergency (ER) | payer BC, MEDICAID, SELFPAY ==
[2022-01-14 06:23] VITALS: BP 133/93; PULSE 99; RESP 18; O2SAT 97; BMI 37.2
[2022-01-14 06:31] VITALS: BP 152/85; PULSE 90; RESP 22; O2SAT 98
--- NOTE | 2022-01-14 06:46 | W.ED.URI ---
HPI - URI/Sore Throat General: Chief Complaint: Shortness of Breath/Dyspnea Stated Complaint: Sore throat, sob Time Seen by Provider: 01/14/22 06:25 Source: patient Mode of arrival: ambulatory Limitations: no limitations History of Present Illness: 37-year-old female presents emergency room complaints of a sore throat headache. Began 5 days ago initially then worsened 2 to 3 days later. She complaining of sore throat with some shortness of breath initially she had some diarrhea that has already resolved. She not really noticed a fever or myalgias. No rash. Nonproductive cough. MD elicited complaint: cough and sore throat Onset (ago): day(s) Consistency: constant Severity: mild Able to tolerate fluids by mouth: Yes Exacerbating factors: nothing Relieving factors: nothing Associated symptoms: Reports cough, diarrhea, headache(s), nasal congestion, short of breath and sore throat; Deny abdominal pain, change in voice, chills, chest pain, congestion, epistaxis, ear or mastoid pain, fever(s), myalgias, nausea, rash, rhinorrhea, sinus pain, stiffness or vomiting Treatments prior to arrival: none Review of Systems Const: Denies: fever(s), chills, fatigue or malaise ENMT: Reports: throat pain, odynophagia and nasal congestion; Denies: ear or mastoid pain, epistaxis or sinus pain Card: Denies: chest pain Resp: Reports: dyspnea and non-productive cough; Denies: productive cough GI: Reports: diarrhea; Denies: abdominal pain, nausea or vomiting : Denies: flank pain, difficulty voiding, dysuria, urinary frequency or urinary urgency Skin/Breast: Denies: rash or pruritus Neuro: Reports: headache(s) PFS ED PFSH: Medical History Amphetamine dependence, in remission Generalized anxiety disorder Major depressive disorder, recurrent, in full remission Nicotine dependence, cigarettes, uncomplicated Opioid dependence, in remission Psychiatric care Sedative, hypnotic or anxiolytic dependence, in remission Social History Smoking and tobacco status: current every day smoker (.5 pack a day ) cigarettes Packs smoked per day: 0.5 Years cigarettes smoked: 17 and e-cigarettes E-Cigarette Details: vaporizer device E-cig/vape details: all the time Quit status (tobacco): considering quitting Second hand smoke exposure: Yes Smoking risk assessment/counseling performed?: No Reason smoking risk assessment not done: other Physical Exam Const: COMMON NORMALS: no acute distress GENERAL APPEARANCE: cooperative and comfortable ORIENTATION/CONSCIOUSNESS: Yes awake, Yes oriented to person, Yes oriented to place and Yes oriented to time HENMT: COMMON NORMALS: normocephalic, atraumatic, hearing grossly normal bilaterally, external ears normal, EAC's normal, TM's normal bilaterally, Normal nasal mucous membranes and turbinates present and moist oral mucous membranes HEAD & SCALP: normocephalic and atraumatic NOSE: Normal nasal mucous membranes and turbinates present EXTERNAL EAR: Yes external ears normal EXTERNAL AUDITORY CANAL: EAC's normal TYMPANIC MEMBRANE: TM's normal bilaterally OTHER: Mild erythema of the oropharynx no tonsillar hypertrophy no exudates no anterior posterior cervical lymphadenopathy Eye: COMMON NORMALS: Equal, round and reactive pupils present, EOMs intact bilaterally, conjunctivae normal and no scleral icterus CONJUNCTIVA: Yes conjunctivae normal PUPIL: Yes Equal, round and reactive pupils present Neck/C-Spine: COMMON NORMALS: full ROM, no lymphadenopathy, supple and no JVD Lymph: LYMPHATIC: no lymphadenopathy noted and no lymphedema noted Resp: COMMON NORMALS: normal respiratory effort, No retractions, No use of accessory muscles and clear to auscultation bilaterally AUSCULTATION: clear to auscultation bilaterally Cardio: COMMON NORMALS: no JVD, regular rate, regular rhythm and No murmurs present (Cardio) RATE: regular rate RHYTHM: regular rhythm Extremity: COMMON NORMALS: normal to inspection, capillary refill normal, no clubbing, cyanosis or edema, no calf tenderness and no pedal edema Neuro: SENSORIUM/ORIENTATION: Yes oriented to person, Yes oriented to place and Yes oriented to time Skin: COMMON NORMALS: no rashes or lesions noted GENERAL SKIN EXAM: no rashes or lesions noted Course Vital Signs: Vital signs: Vital Signs Pulse Rate 90 01/14/22 06:51 Respiratory Rate 22 H 01/14/22 06:51 Blood Pressure 152/85 01/14/22 06:51 Pulse Oximetry 98 01/14/22 06:51 Oxygen Delivery Me thod 01/14/22 06:23 MDM - URI/Sore Throat Medical Decision Making Mild symptoms. Clinical presentation are consistent with a mild case of COVID. No cervical lymphadenopathy no tonsillar exudates only very minimal erythema of the throat. None suggestive of strep. COVID swab done recommend self quarantine until results are available. Medical Records I reviewed the patient's medical records. Lab Data I reviewed the patient's lab results. Discharge Plan Discharge Patient Disposition: Home Clinical Impression: Viral URI, Suspected 2019-nCoV infection Condition: Stable Prescriptions: No Action fluoxetine [Prozac] 20 mg capsule 20 mg PO DAILY Qty: 30 11RF Naprosyn 500 mg tablet 500 mg PO BID PRN (Reason: pain) Qty: 20 0RF Naprosyn 500 mg tablet 500 mg PO BID PRN (Reason: pain) Qty: 20 0RF Discharge Orders: Discharge ED (Routine); Ordered 01/14/22 Ordered By: Kory Chavez Referrals: Kenji Almazan MD [Primary Care Provider] - Discharge Diet: Usual diet Discharge Activity: Increase activity as tolerated Patient Instructions: COVID-19 (Coronavirus Disease 2019) (ED), Opioid Safety Activity Restrictions/Additional Instructions: Based on your clinical presentation we suspect that you do have coronavirus 19. You were tested for COVID-19 in the emergency room and the result will be called to you when it is available. Recommend self quarantine until the COVID results are returned. Stand Alone Forms: Work/School Release Coding Level of Care Code ED [employer] Imp[employer]ating Range Tender for Geoffrey Fwd Exam Comprehensive
[2022-01-14 06:51] VITALS: BP 152/85; PULSE 90; RESP 22; O2SAT 98
[2022-01-14 08:35] LABS: Adenovirus Not Detected (NOT DETECT); Chlamydia Pneumoniae Not Detected (NOT DETECT); Coronavirus 229E,HKU1,NL63,OC4 Not Detected (NOT DETECT); Human Metapneumovirus Not Detected (NOT DETECT); Human Rhinovirus/Enterovirus Not Detected (NOT DETECT); Influenza A Not Detected (NOT DETECT); Influenza A H1 Not Detected (NOT DETECT); Influenza A H1-2009 Not Detected (NOT DETECT); Influenza A H3 Not Detected (NOT DETECT); Influenza B Not Detected (NOT DETECT); Mycoplasma Pneumoniae Not Detected (NOT DETECT); Parainfluenza Virus Type 1 Not Detected (NOT DETECT); Parainfluenza Virus Type 2 Not Detected (NOT DETECT); Parainfluenza Virus Type 3 Not Detected (NOT DETECT); Parainfluenza Virus Type 4 Not Detected (NOT DETECT); Respiratory Syncytial Virus A Not Detected (NOT DETECT); Respiratory Syncytial Virus B Not Detected (NOT DETECT); SARS-COV-2 Not Detected (NOT DETECT)
== END 2022-01-14 06:58 | disposition home or self-care (01) ==
PROVIDERS: Emergency Provider Family Medicine; PCP Family Medicine
DX: J06.9 Acute upper respiratory infection, unspecified (principal); Z20.822 Contact with and (suspected) exposure to COVID-19; F17.210 Nicotine dependence, cigarettes, uncomplicated; F17.290 Nicotine dependence, other tobacco product, uncomplicated
CPT/HCPCS: 87635; 99282

== ENCOUNTER 2022-12-09 15:05 | Emergency (ER) | payer BC, MEDICAID, SELFPAY ==
--- NOTE | 2022-12-09 15:23 | XR_ITS ---
WS: [id number] Exam: XR foot LT min 3V* [id number] Date/Time of Exam: 12/09/2022 3:25 PM Reason For Exam: injury Findings: The foot was examined in multiple views and reveals no fractures or displacements of bone. No bony a nomalies are noted. The bony elements are in adequate alignment. The joint spaces are smooth and eq uidistant. XR/XR foot LT min 3V* [id number] IMPRESSION: Negative left foot.
[2022-12-09 15:46] VITALS: BP 146/83; PULSE 67; RESP 16; TEMP 36.7; O2SAT 100; BMI 35.4
--- NOTE | 2022-12-09 16:30 | W.ED.EXTPRO ---
HPI - Extremity Problem General: Chief complaint: Extremity Injury, Lower Stated complaint: left foot pain Time Seen by Provider: 12/09/22 16:18 History of Present Illness: Patient is a 37-year-old female who comes to the ED with left foot pain. Patient states she does not have a vehicle and has been doing a lot of walking to get around for the past several weeks. Approximately 3 days ago she started having pain in the top of her left foot. She rates her pain currently a 10 out of 10. Denies any injury or trauma to the left foot. Associated symptoms: Deny chest pain, fever(s) or rash Review of Systems Const: Denies: fever(s), chills or fatigue Eyes: Denies: change in vision or eye discomfort ENMT: Denies: throat pain, odynophagia, nasal discharge or nasal congestion Card: Denies: chest pain, palpitations, edema, swelling of feet/ankles, dyspnea on exertion or orthopnea Resp: Denies: dyspnea, productive cough or non-productive cough GI: Denies: abdominal pain, nausea, vomiting, diarrhea, constipation or hematochezia : Denies: flank pain, dysuria or hematuria Musc: Reports: extremity pain (Left foot pain); Denies: neck pain, back pain or extremity swelling Skin/Breast: Denies: rash or new lesions Neuro: Denies: headache(s), numbness in extremities or weakness in extremities PFS ED PFSH: Medical History (Updated 12/09/22 @ 16:34 by FABIAN Rowe) Amphetamine dependence, in remission Generalized anxiety disorder Major depressive disorder, recurrent, in full remission Nicotine dependence, cigarettes, uncomplicated Opioid dependence, in remission Sedative, hypnotic or anxiolytic dependence, in remission Social History Smoking and tobacco status: current every day smoker (.5 pack a day ) cigarettes Packs smoked per day: 0.5 Years cigarettes smoked: 17 and e-cigarettes E-Cigarette Details: vaporizer device E-cig/vape details: all the time Quit status (tobacco): considering quitting Second hand smoke exposure: Yes Smoking risk assessment/counseling performed?: No Reason smoking risk assessment not done: other Physical Exam Const: COMMON NORMALS: no acute distress, patient oriented x3 and alert HENMT: COMMON NORMALS: normocephalic HEAD & SCALP: normocephalic MOUTH: Normal oral and palatal mucosa present THROAT: posterior oropharynx normal and uvula midline Neck/C-Spine: COMMON NORMALS: supple GENERAL: Yes normal visual inspection Resp: COMMON NORMALS: normal respiratory effort, No retractions, No use of accessory muscles and clear to auscultation bilaterally AUSCULTATION: clear to auscultation bilaterally Cardio: COMMON NORMALS: regular rate, regular rhythm, S1 normal heart sound present, S2 normal heart sound present, No gallops present (Cardio), No clicks present (Cardio), No murmurs present (Cardio) and Peripheral pulses 2+ throughout RATE: regular rate RHYTHM: regular rhythm HEART SOUNDS: S1 normal heart sound present and S2 normal heart sound present PERIPHERAL PULSES: Peripheral pulses 2+ throughout GI: COMMON NORMALS: Normal to inspection, nondistended, normoactive bowel sounds present, Soft to palpation, non-tender and no masses PALPATION: Yes Soft to palpation : COMMON NORMALS: Yes no CVA tenderness BLADDER/KIDNEY EXAM: Yes no CVA tenderness Back/Pelvis: COMMON NORMALS: no CVA tenderness Extremity: NARRATIVE EXTREMITY EXAM: Left foot?no swelling, ecchymosis or deformity noted. She does have some tenderness to palpation of her midfoot region. Neurovascular tact distally. Rest of exam is benign Neuro: COMMON NORMALS: patient oriented x3 SENSORIUM/ORIENTATION: Yes alert GAIT: Yes Normal gait present Skin: GENERAL SKIN EXAM: dry skin Course Vital Signs: Vital signs: Vital Signs Temperature 98.0 F 12/09/22 15:46 Pulse Rate 67 12/09/22 15:46 Respiratory Rate 16 12/09/22 15:46 Blood Pressure 146/83 12/09/22 15:46 Pulse Oximetry 100 12/09/22 15:46 Oxygen Delivery Me thod Room Air 12/09/22 15:46 MDM - Extremity (Nontraumatic) Medical Decision Making Patient is a 37-year-old female who comes to the ED with left foot pain. Patient states she does not have a vehicle and has been doing a lot of walking to get around for the past several weeks. Approximately 3 days ago she started having pain in the top of her left foot. She rates her pain currently a 10 out of 10. Denies any injury or trauma to the left foot.Left foot?no swelling, ecchymosis or deformity noted. She does have some tenderness to palpation of her midfoot region. Neurovascular tact distally. Rest of exam is benign. Left foot x-ray shows no acute fractures or findings. Patient diagnosed with left foot pain likely due to overuse. She was given a dose of Toradol here in the ED and told to rest, ice and elevate left foot and limit walking for the next couple days to allow it to heal. She was sent home with a prescription for ibuprofen 800 mg. Follow-up with PCP in the next week for reevaluation. Patient understood and agreed with plan. Lab Data Radiology Impressions Foot X-Ray 12/09/22 15:23 IMPRESSION: Negative left foot. Discharge Plan Discharge Patient Disposition: Home Clinical Impression: Left foot pain Condition: Stable Prescriptions: New ibuprofen 800 mg tablet 800 mg PO Q8H PRN (Reason: pain) Qty: 20 0RF No Action sulfamethoxazole-trimethoprim [Bactrim DS] 800-160 mg tablet 1 tab PO BID 7 Days Qty: 14 0RF mupirocin 2 % ointment 1 applic topical BID 7 Days Qty: 22 0RF Discharge Orders: Discharge ED (Routine); Ordered 12/09/22 Ordered By: Willem Child Referrals: Kenji Almazan MD [Primary Care Provider] - Discharge Diet: Regular Discharge Activity: Increase activity as tolerated Activity Restrictions/Additional Instructions: Follow-up with medical provider as directed in the next 5 to 7 days for reevaluation. Take medications as prescribed. Rest, ice and elevate foot to help with symptoms. Return to the ER or your medical provider if condition worsens. Please read and understand discharge instructions. Thank you for choosing [facility] for your healthcare needs today. Please realize this is an emergency room and that we are providing you with a medical screening exam and this may not be complete and all inclusive of all the testing and or work up that you may need to determine your ailment or severity of your illness. It is very important that you follow up as instructed or that you return to the Emergency Department should you have concerns or if your condition changes or worsens in any way. Coding Level of Care Code ED Press Setter for Geoffrey Aguirre
[2022-12-09] MEDS: ketorolac 60 mg/2 mL INJ IM (16:38)
== END 2022-12-09 16:40 | disposition home or self-care (01) ==
PROVIDERS: Emergency Provider Physician Assistant; PCP Family Medicine
DX: M79.672 Pain in left foot (principal); F17.210 Nicotine dependence, cigarettes, uncomplicated; F17.290 Nicotine dependence, other tobacco product, uncomplicated
CPT/HCPCS: 73630; 96372; 99284; J1885

== ENCOUNTER 2022-12-30 23:37 | Emergency (ER) | payer BC, MEDICAID, SELFPAY ==
--- NOTE | 2022-12-30 23:49 | W.ED.GENADLT ---
HPI - General Adult General: Chief complaint: Urogenital-Female Stated complaint: Dehydrated\Blood in Urine\Anxiety Time Seen by Provider: 12/30/22 23:44 History of Present Illness: 37-year-old female comes in today with complaints of sore throat, blood in her urine, and feeling dehydrated. Patient states about 3 days ago she noticed blood in her urine that has persisted. Patient reports for the last 2 days she has had a sore throat and patient feels that she is dehydrated. Patient appears mildly unwell but not toxic. Patient is able to make full sentences. Patient reports she smokes and occasionally drinks. Patient denies any other drug use. Associated symptoms: Reports malaise; Deny chest pain, dyspnea, nausea or vomiting Review of Systems Const: Reports: malaise and other (Dry mouth); Denies: fever(s) ENMT: Reports: throat pain Card: Denies: chest pain Resp: Denies: dyspnea GI: Denies: nausea, vomiting, diarrhea or constipation : Reports: hematuria Musc: Denies: back pain Psych: Denies: depression PFSH ED PFSH: Medical History (Updated 12/31/22 @ 01:27 by MANFRED Hartmann) Amphetamine dependence, in remission Generalized anxiety disorder Major depressive disorder, recurrent, in full remission Nicotine dependence, cigarettes, uncomplicated Opioid dependence, in remission Sedative, hypnotic or anxiolytic dependence, in remission Social History Smoking and tobacco status: current every day smoker (.5 pack a day ) cigarettes Packs smoked per day: 0.5 Years cigarettes smoked: 17 and e-cigarettes E-Cigarette Details: vaporizer device E-cig/vape details: all the time Quit status (tobacco): considering quitting Second hand smoke exposure: Yes Smoking risk assessment/counseling performed?: No Reason smoking risk assessment not done: other Physical Exam Const: COMMON NORMALS: alert HENMT: COMMON NORMALS: normocephalic HEAD & SCALP: normocephalic THROAT: posterior oropharynx abnormal erythema Neck/C-Spine: COMMON NORMALS: full ROM, no lymphadenopathy and no meningeal signs Resp: COMMON NORMALS: normal respiratory effort and clear to auscultation bilaterally AUSCULTATION: clear to auscultation bilaterally Cardio: COMMON NORMALS: regular rhythm RATE: tachycardic RHYTHM: regular rhythm GI: COMMON NORMALS: Soft to palpation PALPATION: Yes Soft to palpation : COMMON NORMALS: Yes no CVA tenderness BLADDER/KIDNEY EXAM: Yes no CVA tenderness Back/Pelvis: COMMON NORMALS: no CVA tenderness Extremity: COMMON NORMALS: no pedal edema Neuro: SENSORIUM/ORIENTATION: Yes alert MENINGEAL SIGNS: Yes no meningeal signs Skin: COMMON NORMALS: turgor normal GENERAL SKIN EXAM: turgor normal Course Vital Signs: Vital signs: Vital Signs Temperature 98.6 F 12/30/22 23:51 Pulse Rate 105 H 12/31/22 00:55 Respiratory Rate 20 H 12/31/22 00:55 Blood Pressure 125/83 12/31/22 00:55 Pulse Oximetry 99 12/31/22 00:55 Oxygen Delivery Me thod Room Air 12/31/22 00:55 MDM - General Adult Medical Decision Making Patient comes in for evaluation of illness. Patient reports blood in her urine x3 days, sore throat x2 days, and feeling dehydrated. Patient appears nontoxic. Patient appears in mild pain. Abdomen soft nontender. No CVA tenderness. Posterior pharynx is erythematous. Lungs are clear to auscultation. Differential diagnosis includes but not limited to urinary tract infection, gastroenteritis, upper respiratory infection, acute kidney injury, substance use disorder. Laboratory values noted mild leukocytosis with a white blood cell count 12,000, creatinine was 1.0, hCG was negative, urine had a specific gravity of 1.030, strep test was negative, drug screen was positive for amphetamines and marijuana. I believe the concentration of the urine made it look like blood was in the urine. Most likely from the outside temperature and patient's methamphetamine use has increased her dehydration. Patient was given 1 L of IV fluid and 1 mg of lorazepam due to her anxiety. Patient was improved after treatment and was released to home. Lab Data 12/30/22 23:59 12/30/22 23:59 Laboratory Results WBC 12.7 10^3/uL (4.0-10.0) H 12/30/22 23:59 RBC 4.18 10^6/uL (4.1-5.3) 12/30/22 23:59 Hgb 12.8 g/dL (11.5-15.3) 12/30/22 23:59 Hct 40.4 % (37.0-47.0) 12/30/22 23:59 MCV 96.7 fl (81-99) 12/30/22 23:59 MCH 30.6 pg (28.0-34.0) 12/30/22 23:59 MCHC 31.7 g/dL (30.0-36.0) 12/30/22 23:59 RDW 14.4 % (12.1-15.1) 12/30/22 23:59 Plt Count 278 10^3/cmm (130-400) 12/30/22 23:59 MPV 11.1 fL (7.4-10.4) H 12/30/22 23:59 Neut % (Auto) 79.8 % 12/30/22 23:59 Lymph % (Auto) 13.4 % 12/30/22 23:59 Swain % (Auto) 5.6 % 12/30/22 23:59 Eos % (Auto) 0.6 % 12/30/22 23:59 Baso % (Auto) 0.3 % 12/30/22 23:59 Neut # (Auto) 10.13 10^3/uL (1.8-7.7) H 12/30/22 23:59 Lymph # (Auto) 1.7 10^3/uL (0.8-4.8) 12/30/22 23:59 Swain # (Auto) 0.7 10^3/uL (0.2-0.9) 12/30/22 23:59 Eos # (Auto) 0.1 10^3/uL (0.0-0.8) 12/30/22 23:59 Baso # (Auto) 0.0 10^3/uL (0.0-0.1) 12/30/22 23:59 Nucleated RBC % (auto) 0 % 12/30/22 23:59 Nucleated RBCs # 0.0 /100WBC 12/30/22 23:59 Sodium 140 mmol/L (136-145) 12/30/22 23:59 Potassium 3.7 mmol/L (3.5-5.1) 12/30/22 23:59 Chloride 106 mmol/L (98-107) 12/30/22 23:59 Carbon Dioxide 23 mmol/L (22-29) 12/30/22 23:59 Anion Gap 14.7 (5-19) 12/30/22 23:59 BUN 19 mg/dL (6-20) 12/30/22 23:59 Creatinine 1.0 mg/dL (0.5-0.9) H 12/30/22 23:59 GFR Calculation 62.7 mL/min (90-130) L 12/30/22 23:59 Glucose 100 mg/dL (65-115) 12/30/22 23:59 Calculated Osmolality 292 mOsm/kg (285-295) 12/30/22 23:59 Calcium 9.2 mg/dL (8.5-10.5) 12/30/22 23:59 Total Bilirubin 1.0 mg/dL (0.15-1.2) 12/30/22 23:59 AST 25 U/L (0-32) 12/30/22 23:59 ALT 40 U/L (0-33) H 12/30/22 23:59 Alkaline Phosphatase 165 U/L (35-105) H 12/30/22 23:59 Total Protein 7.3 g/dL (6.6-8.7) 12/30/22 23:59 Albumin 4.2 g/dL (3.5-5.2) 12/30/22 23:59 Globulin 3.1 g/dL (1.3-4.6) 12/30/22 23:59 HCG, Qual Negative (Negative) 12/30/22 23:59 Urine Color Yellow (Yellow) 12/31/22 00:35 Urine Appearance Sl hazy (CLEAR) A 12/31/22 00:35 Urine pH 5 (5-7) 12/31/22 00:35 Ur Specific Christine 1.030 (1.005-1.030) 12/31/22 00:35 Urine Protein 2+ (Negative) H 12/31/22 00:35 Urine Glucose (UA) Norm (Normal) 12/31/22 00:35 Urine Ketones 1+ (Negative) H 12/31/22 00:35 Urine Blood Neg (Negative) 12/31/22 00:35 Urine Nitrate Negative (Negative) 12/31/22 00:35 Urine Bilirubin Neg (Negative) 12/31/22 00:35 Urine Urobilinogen 1 mg/dL (Negative) H 12/31/22 00:35 Ur Leukocyte Esterase Negative (Negative) 12/31/22 00:35 Urine RBC 0-4 /hpf (0-2) H 12/31/22 00:35 Urine WBC None /hpf (0-5) 12/31/22 00:35 Ur Squamous Epith Cells 10-15 /hpf (0-5) H 12/31/22 00:35 Ur Transition Epith Cell 0-4 /hpf 12/31/22 00:35 Amorphous Sediment 1+ /hpf 12/31/22 00:35 Urine Bacteria 1+ /hpf (NONE) H 12/31/22 00:35 Urine Mucus 3+ /hpf 12/31/22 00:35 Urine Opiates Screen Negative ng/mL (Negative) 12/31/22 00:35 Ur Barbiturates Screen Negative ng/mL (Negative) 12/31/22 00:35 Ur Phencyclidine Scrn Negative ng/mL (Negative) 12/31/22 00:35 Ur Amphetamines Screen Positive ng/mL (Negative) H 12/31/22 00:35 U Benzodiazepines Scrn Negative ng/mL (Negative) 12/31/22 00:35 Urine Cocaine Screen Negative ng/mL (Negative) 12/31/22 00:35 U Marijuana (THC) Screen Positive ng/mL (Negative) H 12/31/22 00:35 Ethyl Alcohol < 10 mg/dL (0-10) 12/30/22 23:59 Group A Strep Rapid Negative (Negative) 12/31/22 00:05 Discharge Plan Discharge Patient Disposition: Home Clinical Impression: Mild dehydration, Nicotine dependence, cigarettes, uncomplicated, Amphetamine abuse Condition: Stable Prescriptions: No Action sulfamethoxazole-trimethoprim [Bactrim DS] 800-160 mg tablet 1 tab PO BID 7 Days Qty: 14 0RF mupirocin 2 % ointment 1 applic topical BID 7 Days Qty: 22 0RF ibuprofen 800 mg tablet 800 mg PO Q8H PRN (Reason: pain) Qty: 20 0RF Discharge Orders: Discharge ED (Routine); Ordered 12/31/22 Ordered By: Darron Espinal Referrals: Kenji Almazan MD [Primary Care Provider] - Discharge Diet: Usual diet Discharge Activity: Increase activity as tolerated Patient Instructions: Dehydration (ED) Activity Restrictions/Additional Instructions: Home and rest. Drink plenty of water and fluids. Stay well-hydrated. During the heat is very important to stay as hydrated as much as possible. Alternating water and electrolyte solution can help maintain hydration better. Follow-up with primary care as needed. Return to ED for new concerns. Coding Level of Care Code ED Relief Docking Master for Geoffrey Aguirre
[2022-12-30 23:51] VITALS: BP 126/80; PULSE 103; RESP 18; TEMP 37; O2SAT 97; BMI 38.9
[2022-12-31] MEDS: lactated ringers 1,000 ML 999 ML IV (00:06)
[2022-12-31 00:22] LABS: Rapid Strep A Test Negative (Negative)
[2022-12-31 00:25] LABS: Basophils % 0.3 %; Eosinophils # 0.1 10^3/uL (0.0-0.8); Eosinophils % 0.6 %; Hematocrit 40.4 % (37.0-47.0); Hemoglobin 12.8 g/dL (11.5-15.3); Lymphocytes # 1.7 10^3/uL (0.8-4.8); Lymphocytes % 13.4 %; Mean Corpuscular HGB Conc 31.7 g/dL (30.0-36.0); Mean Corpuscular Hemoglobin 30.6 pg (28.0-34.0); Mean Corpuscular Volume 96.7 fl (81-99); Mean Platelet Volume 11.1 fL (7.4-10.4); Monocytes # 0.7 10^3/uL (0.2-0.9); Monocytes % 5.6 %; Neutrophils # 10.13 10^3/uL (1.8-7.7); Neutrophils % 79.8 %; Nucleated Red Blood Cells % 0 %; Platelet Count 278 10^3/cmm (130-400); Red Blood Count 4.18 10^6/uL (4.1-5.3); Red Cell Distribution Width 14.4 % (12.1-15.1); White Blood Count 12.7 10^3/uL (4.0-10.0)
[2022-12-31 00:27] LABS: HCG, Serum Qual Negative (Negative)
[2022-12-31 00:28] LABS: Alanine Aminotransferase 40 U/L (0-33); Albumin Level 4.2 g/dL (3.5-5.2); Alkaline Phosphatase 165 U/L (35-105); Anion Gap 14.7 (5-19); Aspartate Amino Transferase 25 U/L (0-32); Blood Urea Nitrogen 19 mg/dL (6-20); Calcium 9.2 mg/dL (8.5-10.5); Carbon Dioxide 23 mmol/L (22-29); Chloride 106 mmol/L (98-107); Globulin 3.1 g/dL (1.3-4.6); Glomerular Filtration Rate 62.7 mL/min (90-130); Glucose 100 mg/dL (65-115); Osmolality Calculated 292 mOsm/kg (285-295); Potassium 3.7 mmol/L (3.5-5.1); Sodium 140 mmol/L (136-145); Total Protein 7.3 g/dL (6.6-8.7)
[2022-12-31 00:36] LABS: Alcohol Level < 10 mg/dL (0-10)
[2022-12-31] MEDS: LORazepam 2 mg/mL INJ 1 mL 1 MG IVP (00:52)
--- NOTE | 2022-12-31 00:54 | PC.NURSE ---
Patient and SO yelling at each other in room. Pt states that she just wants to leave because he is going to leave her here. He wants her to be placed in the stress unit. Pt actively denies si/hi, just doesn't want to be stuck here. Spoke with Darron lin np and made him aware of the situation and orders for anxiety medication have been obtained.
[2022-12-31 00:55] VITALS: BP 125/83; PULSE 105; RESP 20; O2SAT 99
[2022-12-31 00:56] LABS: Amphetamines Screen Urine Positive (Negative); Barbiturates Screen Urine Negative (Negative); Benzodiazepines Screen Urine Negative (Negative); Cocaine Screen Urine Negative (Negative); Opiate Screen Urine Negative (Negative); PCP Screen Urine Negative (Negative); THC Screen Urine Positive (Negative)
[2022-12-31 01:21] LABS: Add Urine Microscopic? YES; Bilirubin Urine Neg (Negative); Blood Urine Neg (Negative); Glucose Urine UA Norm (Normal); Ketones Urine 1+ (Negative); Leukocyte Esterase Urine Negative (Negative); Nitrate Urine Negative (Negative); Protein Urine 2+ (Negative); Urine Appearance SL Hazy (CLEAR); Urine Color Yellow (Yellow); Urobilinogen Urine 1 mg/dL (Negative); pH Urine 5 (5-7)
[2022-12-31 01:22] LABS: Add Urine Culture? No; Amorphous Sediment Urine 1+ /hpf; Bacteria Urine 1+ /hpf; Mucus Urine 3+ /hpf; RBC Urine 0-4 /hpf (0-2); Transitional Epi Cells Urine 0-4 /hpf
[2022-12-31 01:43] VITALS: BP 103/70; RESP 14
== END 2022-12-31 01:43 | disposition home or self-care (01) ==
PROVIDERS: Emergency Provider Nurse Practitioner Family; PCP Family Medicine
DX: F15.10 Other stimulant abuse, uncomplicated (principal); E86.0 Dehydration; F17.210 Nicotine dependence, cigarettes, uncomplicated; F17.290 Nicotine dependence, other tobacco product, uncomplicated
CPT/HCPCS: 36415; 80053; 80306; 80307; 81001; 84703; 85025; 87081; 87880; 96361; 96374; 99284; J2060; J7120

== ENCOUNTER 2023-08-12 05:25 | Emergency (ER) | payer OTHER, BC, MEDICAID, SELFPAY ==
[2023-08-12 05:29] VITALS: BP 142/79; PULSE 91; RESP 16; O2SAT 100
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
[2023-08-12 06:56] LABS: HCG Qualitative Urine. Negative (Negative)
[2023-08-12 07:23] LABS: Add Urine Microscopic? YES; Bilirubin Urine Neg (Negative); Blood Urine Neg (Negative); Glucose Urine UA Norm (Normal); Ketones Urine Negative (Negative); Leukocyte Esterase Urine Negative (Negative); Nitrate Urine Negative (Negative); Protein Urine Neg (Negative); Specific Gravity, Urine 1.025 (1.005-1.030); Urine Appearance SL Hazy (CLEAR); Urine Color Yellow (Yellow); Urobilinogen Urine 1 mg/dL (Negative); pH Urine 5 (5-7)
[2023-08-12 07:25] LABS: Bacteria Urine 3+ /hpf; Mucus Urine 1+ /hpf; Squamous Epithelial Cell Urine 0-4 /hpf (0-5); WBC Urine RARE /hpf (0-5)
[2023-08-12 07:26] LABS: Add Urine Culture? No; Sperm Urine 1+ /hpf
[2023-08-12] MEDS: azithromycin 250 mg Tablet 1000 MG PO (07:40)
[2023-08-12] MEDS: metroNIDAZOLE 500 MG Tablet 2000 MG PO (07:40)
[2023-08-12] MEDS: emtricitabine/tenofovir 200 mg-300 mg TABLET 1 TAB PO (07:41)
[2023-08-12] MEDS: cefTRIAXone 1,000 mg SDV 500 MG IM (07:44)
[2023-08-12] MEDS: water for injection-sterile SDV 10 mL IM (07:45)
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
[2023-08-12 09:00] VITALS: BP 137/90; PULSE 87; RESP 17; O2SAT 100
--- NOTE | 2023-08-12 09:31 | PC.NURSE ---
08/12/23 @ 0900 SAN discharge instructions given at this time. Patient discharged from ER with support person. DIRK nurses to notify [facility] to try to get appointment made for patient.
[2023-08-13 16:00] LABS: Chlamydia Trachomatis RNA TMA NOT DETECTED (NOT DETECTED); Neisseria Gonorrhoeae RNA, TMA NOT DETECTED (NOT DETECTED)
[2023-08-14 12:49] LABS: HIV RNA (CPY/ML) NOT DETECTED (NOT DETECTED); HIV RNA LOG NOT DETECTED copies/mL (NOT DETECTED)
[2023-08-14 13:24] LABS: Hepatitis B Virus DNA NOT DETECTED (NOT DETECTED); Hepatitis B Virus DNA PCR NOT DETECTED Log IU/mL (NOT DETECTED)
== END 2023-08-12 09:00 | disposition home or self-care (01) ==
PROVIDERS: Emergency Provider Emergency Medicine; PCP Family Medicine
DX: T74.21XA Adult sexual abuse, confirmed, initial encounter (principal); F17.210 Nicotine dependence, cigarettes, uncomplicated; F17.290 Nicotine dependence, other tobacco product, uncomplicated; Y07.9 Unspecified perpetrator of maltreatment and neglect
CPT/HCPCS: 36415; 81001; 81025; 87491; 87517; 87536; 87591; 96372; 99284; J0696; Q0144

== ENCOUNTER 2023-08-26 02:19 | Emergency (ER) | payer BC, MEDICAID, SELFPAY ==
[2023-08-26 02:25] VITALS: BP 147/88; PULSE 95; RESP 16; TEMP 36.6; O2SAT 100; BMI 27.6
--- NOTE | 2023-08-26 03:01 | XRR_ITS ---
PROCEDURE INFORMATION: Exam: XR Pelvis Exam date and time: 08/26/2023 3:08 AM Age: 38 years old Clinical indication: Screening exam; Fb; Additional info: Foreign body TECHNIQUE: Imaging protocol: Radiologic exam of the pelvis. Views: 1 or 2 view. COMPARISON: No relevant prior studies available. FINDINGS: Tubes, catheters and devices: [place] 7.3 cm ovoid device is appreciated projecting midline pelvis. Bones/joints: Right acetabular crossover sign. There is an ill-defined sclerotic lesion with circumferential lucency projecting at the right acetabular roof. Lesion measures up to 1.0 cm in diameter. Soft tissues: Unremarkable. Other findings: Fykhs-jjfkfza-lxze-left cam deformities. XR/XR pelvis 1-2V* 17200 IMPRESSION: 1. 7.3 cm oblong device projecting midline pelvis. Given single projection can not assess if within the gastrointestinal tract versus genitourinary canal, correlate with patient history. 2. 1.0 cm predominantly sclerotic mass of the right acetabulum with peripheral lucency. Recommend further evaluation with MRI for definitive characterization. 3. Findings suggest qvhmu-dhiwnru-jukn-left femoroacetabular impingement syndrome. Correlate with patient's signs and symptoms.
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
== END 2023-08-26 03:45 | disposition home or self-care (01) ==
PROVIDERS: Emergency Provider Internal Medicine; PCP Family Medicine
DX: T19.2XXA Foreign body in vulva and vagina, initial encounter (principal); W44.8XXA Other foreign body entering into or through a natural orifice, initial encounter; F17.210 Nicotine dependence, cigarettes, uncomplicated; F17.290 Nicotine dependence, other tobacco product, uncomplicated
CPT/HCPCS: 72170; 99283

== ENCOUNTER 2023-09-17 03:07 | Emergency (ER) | payer BC, MEDICAID, SELFPAY ==
[2023-09-17 03:07] VITALS: BP 152/85; PULSE 115; RESP 18; TEMP 36.6; O2SAT 100; BMI 26.5
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
--- NOTE | 2023-09-17 03:43 | PC.NURSE ---
wounds irrigated and clean with NS. pt up to sink to wash hands. bandaids applied to wounds on hands. gauze and tape applied to wound on L cameron.
[2023-09-17 03:44] VITALS: BP 152/85; PULSE 105; RESP 16; TEMP 36.6; O2SAT 100
== END 2023-09-17 03:46 | disposition home or self-care (01) ==
PROVIDERS: Emergency Provider Emergency Medicine; PCP Family Medicine
DX: S91.312A Laceration without foreign body, left foot, initial encounter (principal); S81.812A Laceration without foreign body, left lower leg, initial encounter; S61.012A Laceration without foreign body of left thumb without damage to nail, initial encounter; S61.210A Laceration without foreign body of right index finger without damage to nail, initial encounter; X99.1XXA Assault by knife, initial encounter; Y07.030 Male partner, current, perpetrator of maltreatment and neglect; F17.210 Nicotine dependence, cigarettes, uncomplicated; F17.290 Nicotine dependence, other tobacco product, uncomplicated
CPT/HCPCS: 99282

== ENCOUNTER 2023-10-16 00:51 | Emergency (ER) | payer BC, MEDICAID, SELFPAY ==
[2023-10-16 00:54] VITALS: BP 129/89; PULSE 126; RESP 20; TEMP 36.9; O2SAT 98; BMI 31.8
--- NOTE | 2023-10-16 01:13 | W.ED.PSYCHS ---
HPI - Psych General: Chief Complaint: Psychiatric Symptoms Stated Complaint: SI Time Seen by Provider: 10/16/23 01:00 History of Present Illness: Patient presents to the ER by EMS after taking 4 green Xanax tablets. Patient is adamantly denying suicidal homicidal ideation or any attempt to hurt herself at this time. She states she took them because of stress. Patient says she is homeless, having problems with her significant other, and think she is 5 weeks . Patient states she has no complaints at this time and just wants to be discharged. Review of Systems General: Reports: 10 or more systems reviewed and unremarkable except in HPI and below PFS ED PFSH: Medical History Opioid use disorder Amphetamine use disorder, severe, dependence Vapes nicotine containing substance Psychiatric care Nicotine dependence, cigarettes, uncomplicated Sedative, hypnotic or anxiolytic dependence, in remission Opioid dependence, in remission Amphetamine dependence, in remission Generalized anxiety disorder Major depressive disorder, recurrent, in full remission Family History Other Generalized anxiety disorder Social History Smoking and tobacco/nicotine status: current every day tobacco/nicotine user (.5 pack a day ) cigarettes Packs smoked per day: 0.5 Years cigarettes smoked: 17 and e-cigarettes E-Cigarette Details: vaporizer device E-cig/vape details: all the time Quit status (tobacco/nicotine): considering quitting Second hand smoke exposure: Yes Physical Exam Const: COMMON NORMALS: no acute distress, average body habitus, patient oriented x3, no limitations, healthy appearing, alert and well nourished HENMT: COMMON NORMALS: normocephalic, atraumatic, hearing grossly normal bilaterally, external ears normal, Normal external nose present, moist oral mucous membranes and oropharynx normal HEAD & SCALP: normocephalic and atraumatic NOSE: Normal external nose present EXTERNAL EAR: Yes external ears normal Neck/C-Spine: COMMON NORMALS: no JVD Chest: COMMONS NORMALS: normal inspection of the chest and normal palpation of entire chest wall Resp: COMMON NORMALS: normal respiratory effort, No retractions, No use of accessory muscles and clear to auscultation bilaterally AUSCULTATION: clear to auscultation bilaterally Cardio: COMMON NORMALS: no JVD, regular rate, regular rhythm, S1 normal heart sound present, S2 normal heart sound present, No gallops present (Cardio), No clicks present (Cardio), No murmurs present (Cardio) and No rub (Cardio) RATE: regular rate RHYTHM: regular rhythm HEART SOUNDS: S1 normal heart sound present and S2 normal heart sound present GI: COMMON NORMALS: Normal to inspection, nondistended, normoactive bowel sounds present, Soft to palpation, non-tender, No hepatosplenomegaly present and no masses PALPATION: Yes Soft to palpation and Yes No hepatosplenomegaly present Neuro: COMMON NORMALS: patient oriented x3 SENSORIUM/ORIENTATION: Yes alert Course Vital Signs: Vital signs: Vital Signs Temperature 98.4 F 10/16/23 00:54 Pulse Rate 126 H 10/16/23 00:54 Respiratory Rate 20 H 10/16/23 00:54 Blood Pressure 129/89 10/16/23 00:54 Pulse Oximetry 98 10/16/23 00:54 [facility] - Psych Medical Decision Making Patient denies suicidal homicidal ideation. Patient appears to be stable. Patient is mildly tachycardic at 126 beats a minute. Patient will be discharged. Differential Diagnosis Unlikely acute psychosis, chronic schizophrenia, suicidal ideation, bipolar disorder, depression, drug-induced psychotic disorder or acute anxiety Medical Records I reviewed the patient's medical records. Lab Data I reviewed the patient's lab results. No radiology studies performed this visit Discharge Plan Discharge Patient Disposition: Home Clinical Impression: Acute anxiety, Stress Condition: Stable Prescriptions: No Action fluoxetine [Prozac] 20 mg capsule 20 mg PO DAILY Qty: 30 2RF Discharge Orders: Discharge ED (Routine); Ordered 10/16/23 Ordered By: John Garza Referrals: Kenji Almazan MD [Primary Care Provider] - 1 week Patient Instructions: Stress (ED), Anxiety (ED) Activity Restrictions/Additional Instructions: Please not use any illegal substances or medications or not your own. Please follow-up with your family practice physician for further evaluation and testing. If your symptoms worsen such as stress anxiety or you become suicidal or homicidal please return to the ER. Coding Level of Care Code ED Truck Rental Service Attendant for Geoffrey Aguirre
== END 2023-10-16 01:34 | disposition home or self-care (01) ==
PROVIDERS: Emergency Provider Emergency Medicine; PCP Family Medicine
DX: F41.9 Anxiety disorder, unspecified (principal); F43.9 Reaction to severe stress, unspecified; R00.0 Tachycardia, unspecified; F17.210 Nicotine dependence, cigarettes, uncomplicated; F17.290 Nicotine dependence, other tobacco product, uncomplicated; Z59.00 Homelessness unspecified
CPT/HCPCS: 99283

== ENCOUNTER 2023-11-21 13:41 | Observation (INO) | payer BC, MEDICAID, SELFPAY ==
[2023-11-21] VITALS (26 sets, daily range): BP systolic 103–133; BP diastolic 54–94; PULSE 41–87; RESP 9–20; TEMP 36.2–36.9; O2SAT 92–100; BMI 32.2
[2023-11-21 14:59] LABS: Basophils % 0.2 %; Eosinophils % 0.1 %; Hematocrit 39.2 % (36-47); Lymphocytes # 1.2 10^3/uL (0.8-4.8); Lymphocytes % 9.1 %; Mean Corpuscular HGB Conc 32.9 g/dL (30-55); Mean Corpuscular Hemoglobin 31.1 pg (27-33); Mean Corpuscular Volume 94.5 fl (85-98); Mean Platelet Volume 10.7 fL (7.4-10.4); Monocytes # 0.8 10^3/uL (0.2-0.9); Monocytes % 6.6 %; Neutrophils # 10.54 10^3/uL (1.8-7.7); Neutrophils % 83.8 %; Nucleated Red Blood Cells % 0 %; Platelet Count 225 10^3/cmm (157-399); Red Blood Count 4.15 10^6/uL (3.85-5.65); Red Cell Distribution Width 12.9 % (12.1-15.1); White Blood Count 12.58 10^3/uL (3.29-11.43)
[2023-11-21 15:01] LABS: HCG Qualitative Urine. Negative (Negative)
[2023-11-21 15:19] LABS: Alanine Aminotransferase 28 U/L (0-33); Albumin Level 3.9 g/dL (3.5-5.2); Alkaline Phosphatase 113 U/L (35-105); Anion Gap 15.9 (5-19); Aspartate Amino Transferase 17 U/L (0-32); Blood Urea Nitrogen 14 mg/dL (6-20); Carbon Dioxide 21 mmol/L (22-29); Chloride 100 mmol/L (98-107); Creatinine Clr Calc Pharmacy 111.3462; Globulin 2.9 g/dL (1.3-4.6); Glomerular Filtration Rate 94.2 mL/min (90-130); Glucose 93 mg/dL (65-115); Magnesium 1.9 mg/dL (1.7-2.3); Osmolality Calculated 276 mOsm/kg (285-295); Potassium 3.9 mmol/L (3.5-5.1); Sodium 133 mmol/L (136-145); Total Bilirubin 1.5 mg/dL (0.15-1.2); Total Protein 6.8 g/dL (6.6-8.7)
--- NOTE | 2023-11-21 15:56 | USR_ITS ---
PROCEDURE INFORMATION: Exam: US Abdomen, Limited; Right Upper Quadrant Exam date and time: 11/21/2023 4:54 PM Age: 38 years old Clinical indication: Abdominal pain; Acute; Ruq pain TECHNIQUE: Imaging protocol: Real time ultrasound of the abdomen with image documentation. Limited exam focused on the right upper quadrant. COMPARISON: CT abdomen pelvis wo con [id number] 11/21/2023 4:19 PM FINDINGS: Liver: Mildly heterogeneous diffuse hepatic echotexture. There is a heterogeneous predominantly hyperechoic lesion with a central scar in the left hepatic lobe measuring 4.5 x by 3.9 x 5.0 cm. Vascularity is not detected in this lesion. Further evaluation with non-emergent liver MRI is recommended. (Reference: Fior) Gallbladder: Gallbladder wall is thickened measuring 5 mm. No stones are seen. There is no pericholecystic fluid or edema. Biliary ducts: Normal. No stones. No dilation. Pancreas: Visualized pancreas is unremarkable. Right kidney: Normal. No mass. No hydronephrosis. US/US gall bladder [id number] IMPRESSION: 1. Heterogeneous lesion with a central scar in the left hepatic lobe. Top differential and a female of this age is focal nodular hyperplasia. Differential also includes hepatic adenoma, fibro lamellar hepatocellular carcinoma, or cavernous hemangioma. 2. There is gallbladder wall thickening measuring 5 mm without stones visualized raising concern for acalculous cholecystitis. REFERENCES: Fior MIN, et al. Management of Incidental Liver Lesions on CT: A White Paper of the ACR Incidental Findings Committee. J Am Rodo Radiol. 2017;14(11):7910-8790.
--- NOTE | 2023-11-21 15:57 | CTR_ITS ---
PROCEDURE INFORMATION: Exam: CT Abdomen And Pelvis Without Contrast Exam date and time: 11/21/2023 4:19 PM Age: 38 years old Clinical indication: Abdominal pain TECHNIQUE: Imaging protocol: Computed tomography of the abdomen and pelvis without contrast. Radiation optimization: All CT scans at this facility use at least one of these dose optimization techniques: automated exposure control; mA and/or kV adjustment per patient size (includes targeted exams where dose is matched to clinical indication); or iterative reconstruction. COMPARISON: CR XR pelvis 1-2V* [id number] 08/26/2023 3:08 AM RADIATION DOSE METRICS: Total DLP (mGy-cm): 626.17 FINDINGS: Liver: Normal. No mass. Gallbladder and bile ducts: Normal. No calcified stones. No ductal dilation. Pancreas: Normal. No ductal dilation. Spleen: Normal. No splenomegaly. Adrenal glands: Normal. No mass. Kidneys and ureters: Normal. No hydronephrosis. Stomach and bowel: Unremarkable. No obstruction. No mucosal thickening. Appendix: The appendix is thickened measuring 9 mm associated with periappendiceal inflammatory stranding and appendicolith. Findings are consistent with acute appendicitis. No associated free intraperitoneal air or periappendiceal abscess formation. Intraperitoneal space: There is a moderate amount of free intraperitoneal fluid in the right lower quadrant/pelvis regions. Vasculature: Unremarkable. No abdominal aortic aneurysm. Lymph nodes: Unremarkable. No enlarged lymph nodes. Urinary bladder: Unremarkable as visualized. Reproductive: Unremarkable as visualized. Bones/joints: There are degenerative changes in the visualized spine most prominent across the L5-S1 level. Soft tissues: Unremarkable. CT/CT abdomen pelvis wo con [id number] IMPRESSION: Acute appendicitis.
--- NOTE | 2023-11-21 16:00 | ED_ITS ---
HPI - Abdominal Pain 2 General: Chief Complaint: Abdominal Pain Stated Complaint: abd pain n/v Time Seen by Provider: 11/21/23 15:45 Source: patient Mode of arrival: ambulatory History of Present Illness: 38-year-old female who presents to the mergency room complaining of right upper quadrant abdominal pain. Pain began overnight she localizes to the right upper quadrant she has been nauseous and had vomiting. She denies any hematemesis or coffee-ground emesis no dysuria urgency or frequency no previous abdominal surgeries. Patient reports significant weight loss recently which she attributes to being homeless, walking, and doing drugs. Patient reports using methamphetamine her last use was 1 to 2 weeks ago. Patient also relates she has fatty liver. She is on fluoxetine denies any other medications. MD elicited complaint: abdominal pain Onset (ago): hour(s) Pain Consistency: constant Location: RUQ Severity: moderate Quality: cramping Exacerbating factors: eating Relieving factors: nothing Associated Symptoms: Reports nausea and poor appetite; Denies anorexia, belching, bloating, change in bowel habits, change in stool character, chills, coffee ground emesis, constipation, GI cramping, diarrhea, dyspepsia, dysuria, excessive flatus, fever(s), heartburn, hematochezia, hematuria, hematemesis, fecal incontinence, loose stools, melena, syncope and vomiting Review of Systems 2 Const: Denies: fever(s) or chills Card: Denies: chest pain or syncope Resp: Denies: dyspnea GI: Reports: abdominal pain and nausea; Denies: vomiting, hematemesis, coffee ground emesis, heartburn, diarrhea, constipation, bloating, GI cramping, belching, excessive flatus, fecal incontinence, change in bowel habits, change in stool character, hematochezia or melena : Denies: dysuria, urinary frequency, urinary urgency or hematuria Musc: Denies: neck pain or back pain Skin/Breast: Denies: rash PFSH ED 2 PFSH: Medical History (Updated 11/23/23 @ 00:00 by EDDIE Pickard) Suspected 2019-nCoV infection Amphetamine use disorder, severe, in sustained remission, dependence Anterior epistaxis Nasal obstruction Acquired deviated nasal septum Daily headache Opioid use disorder Amphetamine use disorder, severe, dependence Vapes nicotine containing substance Psychiatric care Nicotine dependence, cigarettes, uncomplicated Sedative, hypnotic or anxiolytic dependence, in remission Opioid dependence, in remission Amphetamine dependence, in remission Generalized anxiety disorder Major depressive disorder, recurrent, in full remission Surgical History History of appendectomy Family History Other Generalized anxiety disorder Social History Smoking and tobacco/nicotine status: current every day tobacco/nicotine user (.5 pack a day ) cigarettes Packs smoked per day: 0.5 Years cigarettes smoked: 17 and e-cigarettes E-Cigarette Details: vaporizer device E-cig/vape details: all the time Quit status (tobacco/nicotine): considering quitting Second hand smoke exposure: Yes Physical Exam 2 Const: GENERAL APPEARANCE: cooperative and comfortable O RIENTATION/CONSCIOUSNESS: Yes awake, Yes oriented to person, Yes oriented to place and Yes oriented to time HENMT: COMMON NORMALS: normocephalic, atraumatic and hearing grossly normal bilaterally HEAD & SCALP: normocephalic and atraumatic Resp: COMMON NORMALS: normal respiratory effort, No retractions, No use of accessory muscles and clear to auscultation bilaterally AUSCULTATION: clear to auscultation bilaterally Cardio: COMMON NORMALS: regular rate, regular rhythm and No murmurs present (Cardio) RATE: regular rate RHYTHM: regular rhythm GI: COMMON NORMALS: No hepatosplenomegaly present AUSCULTATION: Yes normoactive bowel sounds PALPATION: Yes Tenderness to palpation present (GI) Details: RUQ, No Guarding due to palpation present (GI) and Yes No hepatosplenomegaly present Extremity: COMMON NORMALS: normal to inspection, capillary refill normal, no clubbing, cyanosis or edema, no calf tenderness and no pedal edema Neuro: SENSORIUM/ORIENTATION: Yes oriented to person, Yes oriented to place and Yes oriented to time Skin: COMMON NORMALS: no rashes or lesions noted GENERAL SKIN EXAM: no rashes or lesions noted Course 2 Vital Signs: Vital signs: Vital Signs Temperature 97.8 F 11/22/23 11:09 Pulse Rate 52 L 11/22/23 11:09 Respiratory Rate 18 11/22/23 11:09 Blood Pressure 120/84 11/22/23 11:09 Pulse Oximetry 100 11/22/23 11:09 Oxygen Delivery Me thod Room Air 11/22/23 08:55 Oxygen Flow Rate 2 11/22/23 05:15 Fraction of Inspir ed Oxygen 28 11/22/23 01:00 MDM - Abdominal Pain Medical Decision Making Acute appendicitis surgery consulted. Admitted to surgery department from the emergency room Medical Records I reviewed the patient's medical records. Lab Data I reviewed the patient's lab results. 11/22/23 03:08 11/22/23 03:08 Labs/Radiology: Radiology Impressions Gallbladder Ultrasound 11/21/23 15:56 IMPRESSION: 1. Heterogeneous lesion with a central scar in the left hepatic lobe. Top differential and a female of this age is focal nodular hyperplasia. Differential also includes hepatic adenoma, fibro lamellar hepatocellular carcinoma, or cavernous hemangioma. 2. There is gallbladder wall thickening measuring 5 mm without stones visualized raising concern for acalculous cholecystitis. REFERENCES: Fior MIN, et al. Management of Incidental Liver Lesions on CT: A White Paper of the ACR Incidental Findings Committee. J Am Rodo Radiol. 2017;14(11):7695-6870. Abdomen/Pelvis CT 11/21/23 15:57 IMPRESSION: Acute appendicitis. ADDENDUM: 11/21/23 1702 CRITICAL RESULT: The study was personally discussed on the telephone with DEYANIRA Thomas on 11/21/2023 5:01 PM CDT. The results were understood and acknowledged. Chest X-Ray 11/21/23 23:53 IMPRESSION: No acute cardiopulmonary disease. Laboratory Results WBC 12.58 10^3/uL (3.29-11.43) H 11/21/23 14:51 RBC 4.15 10^6/uL (3.85-5.65) 11/21/23 14:51 Hgb 12.90 g/dL (11.27-16.99) 11/21/23 14:51 Hct 39.2 % (36-47) 11/21/23 14:51 MCV 94.5 fl (85-98) 11/21/23 14:51 MCH 31.1 pg (27-33) 11/21/23 14:51 MCHC 32.9 g/dL (30-55) 11/21/23 14:51 RDW 12.9 % (12.1-15.1) 11/21/23 14:51 Plt Count 225 10^3/cmm (157-399) 11/21/23 14:51 MPV 10.7 fL (7.4-10.4) H 11/21/23 14:51 Neut % (Auto) 83.8 % 11/21/23 14:51 Lymph % (Auto) 9.1 % 11/21/23 14:51 [place] % (Auto) 6.6 % 11/21/23 14:51 Eos % (Auto) 0.1 % 11/21/23 14:51 Baso % (Auto) 0.2 % 11/21/23 14:51 Neut # (Auto) 10.54 10^3/uL (1.8-7.7) H 11/21/23 14:51 Lymph # (Auto) 1.2 10^3/uL (0.8-4.8) 11/21/23 14:51 [place] # (Auto) 0.8 10^3/uL (0.2-0.9) 11/21/23 14:51 Eos # (Auto) 0.0 10^3/uL (0.0-0.8) 11/21/23 14:51 Baso # (Auto) 0.0 10^3/uL (0.0-0.1) 11/21/23 14:51 Nucleated RBC % (auto) 0 % 11/21/23 14:51 Nucleated RBCs # 0.0 /100WBC 11/21/23 14:51 Sodium 133 mmol/L (136-145) L 11/21/23 14:51 Potassium 3.9 mmol/L (3.5-5.1) 11/21/23 14:51 Chloride 100 mmol/L (98-107) 11/21/23 14:51 Carbon Dioxide 21 mmol/L (22-29) L 11/21/23 14:51 Anion Gap 15.9 (5-19) 11/21/23 14:51 BUN 14 mg/dL (6-20) 11/21/23 14:51 Creatinine 0.7 mg/dL (0.5-0.9) 11/21/23 14:51 GFR Calculation 94.2 mL/min (90-130) 11/21/23 14:51 Glucose 93 mg/dL (65-115) 11/21/23 14:51 Calculated Osmolality 276 mOsm/kg (285-295) L 11/21/23 14:51 Calcium 9.0 mg/dL (8.5-10.5) 11/21/23 14:51 Magnesium 1.9 mg/dL (1.7-2.3) 11/21/23 14:51 Total Bilirubin 1.5 mg/dL (0.15-1.2) H 11/21/23 14:51 AST 17 U/L (0-32) 11/21/23 14:51 ALT 28 U/L (0-33) 11/21/23 14:51 Alkaline Phosphatase 113 U/L (35-105) H 11/21/23 14:51 Total Protein 6.8 g/dL (6.6-8.7) 11/21/23 14:51 Albumin 3.9 g/dL (3.5-5.2) 11/21/23 14:51 Globulin 2.9 g/dL (1.3-4.6) 11/21/23 14:51 Lipase 21 U/L (13-60) 11/21/23 14:51 HCG, Qual Negative (Negative) 11/21/23 14:51 Urine Color Yellow (Yellow) 11/21/23 14:51 Urine Appearance Clear (CLEAR) 11/21/23 14:51 Urine pH 5 (5-7) 11/21/23 14:51 Ur Specific [place] 1.025 (1.005-1.030) 11/21/23 14:51 Urine Protein Neg (Negative) 11/21/23 14:51 Urine Glucose (UA) Norm (Normal) 11/21/23 14:51 Urine Ketones 1+ (Negative) H 11/21/23 14:51 Urine Blood Neg (Negative) 11/21/23 14:51 Urine Nitrate Negative (Negative) 11/21/23 14:51 Urine Bilirubin Neg (Negative) 11/21/23 14:51 Urine Urobilinogen Norm mg/dL (Negative) 11/21/23 14:51 Ur Leukocyte Esterase Negative (Negative) 11/21/23 14:51 All radiology interpretation(s) finalized by discharge Discharge Plan Discharge Patient Disposition: Placed in Observation Admit Provider: Orlando Arriaga Clinical Impression: Acute appendicitis Discharge Diet: Advance as tolerated Discharge Activity: Limit activity as instructed Coding Level of Care Code ED Surveillance Analyst for Geoffrey Aguirre
[2023-11-21 16:20] LABS: Lipase 21 U/L (13-60)
[2023-11-21 16:47] LABS: Add Urine Microscopic? NO; Charge for UA Resulting for Rev
[2023-11-21 16:49] LABS: Bilirubin Urine Neg (Negative); Blood Urine Neg (Negative); Glucose Urine UA Norm (Normal); Ketones Urine 1+ (Negative); Leukocyte Esterase Urine Negative (Negative); Nitrate Urine Negative (Negative); Protein Urine Neg (Negative); Specific Gravity, Urine 1.025 (1.005-1.030); Urine Appearance Clear (CLEAR); Urine Color Yellow (Yellow); Urobilinogen Urine Norm (Negative); pH Urine 5 (5-7)
[2023-11-21] MEDS: morphine 4 mg/mL SDV 1 mL IVP (17:31)
[2023-11-21] MEDS: ondansetron 2 mg/ML SDV 2 mL 4 MG IVP (17:31)
--- NOTE | 2023-11-21 17:32 | P.ANESASSM_ITS ---
Pre-Anesthetic Assessment Height/Weight: Height 1.6 m Weight 81.647 kg Temp Pulse Resp BP Pulse Ox 98.4 F 85 16 112/67 97 11/21/23 14:12 11/21/23 16:15 11/21/23 14:12 11/21/23 14:12 11/21/23 16:15 Laparascopic appendectomy Familial anesthetic complications: None Was Beta Oscar taken within 24 hours: N/A Was Clonidine taken within 24 hours: N/A Last intake: > 8 hrs Social Tobacco and No alcohol vapes, hx meth abuse Exam alert, oriented x 3, clear to auscultation bilaterally and regular rate & rhythm Airway Mallampati: Class III Dentition: full Pulmonary Sleep Apnea Anesthetic Plan ASA status: 2 Anesthesia: General Risk of > 500 ml blood loss (7ml/kg in children): No Medications/Allergies Home Medications Medication Instructions Recorded Confirmed Last Taken Type fluoxetine 20 mg capsule (Prozac) 20 mg PO DAILY #30 caps 08/26/23 11/09/23 Unknown Rx Allergies Allergy/AdvReac Type Severity Reaction Status Date / Time No Known Allergies Allergy Verified 11/09/23 14:58 [facility] Anesthesia Medical History Opioid use disorder Amphetamine use disorder, severe, dependence Vapes nicotine containing substance Psychiatric care Nicotine dependence, cigarettes, uncomplicated Sedative, hypnotic or anxiolytic dependence, in remission Opioid dependence, in remission Amphetamine dependence, in remission Generalized anxiety disorder Major depressive disorder, recurrent, in full remission Family History Other Generalized anxiety disorder Social History Smoking and tobacco/nicotine status: current every day tobacco/nicotine user (.5 pack a day ) cigarettes Packs smoked per day: 0.5 Years cigarettes smoked: 17 and e-cigarettes E-Cigarette Details: vaporizer device E-cig/vape details: all the time Quit status (tobacco/nicotine): considering quitting Second hand smoke exposure: Yes Data Anesthesia 11/21/23 14:51 11/21/23 14:51 Short CBC 11/21/23 Range/Units 14:51 WBC 12.58 H (3.29-11.43) 10^3/uL Hgb 12.90 (11.27-16.99) g/dL Hct 39.2 (36-47) % MCV 94.5 (85-98) fl Plt Count 225 (157-399) 10^3/cmm Neut % (Auto) 83.8 % Neut # (Auto) 10.54 H (1.8-7.7) 10^3/uL BMP 11/21/23 14:51 Sodium 133 L Potassium 3.9 Chloride 100 Carbon Dioxide 21 L BUN 14 Creatinine 0.7 Glucose 93 Calcium 9.0 Liver Function 11/21/23 Range/Units 14:51 Total Bilirubin 1.5 H (0.15-1.2) mg/dL AST 17 (0-32) U/L ALT 28 (0-33) U/L Alkaline Phosphatase 113 H (35-105) U/L Albumin 3.9 (3.5-5.2) g/dL Urine 11/21/23 Range/Units 14:51 Urine Color Yellow (Yellow) Urine Appearance Clear (CLEAR) Urine pH 5 (5-7) Ur Specific [place] 1.025 (1.005-1.030) Urine Protein Neg (Negative) Urine Glucose (UA) Norm (Normal) Urine Ketones 1+ H (Negative) Urine Nitrate Negative (Negative) Urine Bilirubin Neg (Negative) Ur Leukocyte Esterase Negative (Negative) Cardiac Studies: 2 No Data to Display
--- NOTE | 2023-11-21 17:33 | P.HP_ITS ---
Providers/Chief Complaint 2 Admitting Physician: Orlando Arriaga Primary Care Provider: Kenji Almazan MD Chief Complaint: abd pain n/v History of Present Illness Elana López is a 38 year old female who presents with 24 hours of abdominal pain initially in the periumbilical region and then localizing to the right lower quadrant and right flank region. On presentation the emergency department white count was elevated and a CT scan of the abdomen pelvis confirmed the diagnosis with acute appendicitis. I was consulted for this finding. Review of Systems 2 General: Reports: 10 or more systems reviewed and unremarkable except in HPI and below Medications/Allergies Home Medications Medication Instructions Recorded Confirmed Last Taken Type fluoxetine 20 mg capsule (Prozac) 20 mg PO DAILY #30 caps 08/26/23 11/09/23 Unknown Rx Allergies Allergy/AdvReac Type Severity Reaction Status Date / Time No Known Allergies Allergy Verified 11/09/23 14:58 PFSH Acute 2 PFSH: Medical History Opioid use disorder Amphetamine use disorder, severe, dependence Vapes nicotine containing substance Psychiatric care Nicotine dependence, cigarettes, uncomplicated Sedative, hypnotic or anxiolytic dependence, in remission Opioid dependence, in remission Amphetamine dependence, in remission Generalized anxiety disorder Major depressive disorder, recurrent, in full remission Family History Other Generalized anxiety disorder Social History Smoking and tobacco/nicotine status: current every day tobacco/nicotine user (.5 pack a day ) cigarettes Packs smoked per day: 0.5 Years cigarettes smoked: 17 and e-cigarettes E-Cigarette Details: vaporizer device E-cig/vape details: all the time Quit status (tobacco/nicotine): considering quitting Second hand smoke exposure: Yes Vitals/I&O/Wt Last Vital Signs Temp 98.4 F 11/21/23 14:12 Pulse 85 11/21/23 16:15 Resp 16 11/21/23 14:12 BP 112/67 11/21/23 14:12 Pulse Ox 97 11/21/23 16:15 Weight last 48 hrs Weight 180 lb Physical Exam 2 Narrative: General : Patient is well developed , no acute distress, oriented x3 Head : Normal cephalic, a-traumatic. Nose : Mucous membranes are without erythema. Lungs : Equal chest rise bilaterally, no use of accessory muscles, trachea is midline. CV : Rate and rhythm are normal. Abdomen : Soft, significant tenderness in the right flank and right lower quadrant. Extremities : No edema. Upper extremities are normal bilaterally. Back : non-tender to palpation, no CVA tenderness. Data 11/21/23 14:51 11/21/23 14:51 A&P Assessment and plan (1) Acute appendicitis: Plan 38-year-old female with acute appendicitis verified by imaging. I have offered the patient laparoscopic appendectomy. We discussed all risk and benefits including the risk of bleeding, infection, injury to surrounding structures, need for additional operations, injury to the ureter bladder colon or small bowel. Need to conversion to an open procedure, need to convert to laparotomy. Risk of sepsis and . There is also risk of hernia formation after surgery. Patient show understanding of all the risks involved with the procedure and decided to proceed. We will start her on an IV fluid bolus, Zosyn and she will be on-call to the OR for laparoscopic appendectomy. Attestations 2 Medical Necessity Statement*: Patient will be discharged after surgery, or the morning after depending on the findings. Coding Level of Care Code Acute Code for [facility] Diagnoses Acute appendicitis K35.80
[2023-11-21] MEDS: piperacillin-tazobactam 3.375 GM in sodium chloride 0.9% (plus) 50 ML IV ×2 (17:35→23:25)
[2023-11-21] MEDS: sodium chloride 0.9% 1,000 ML 999 ML IV (17:35)
[2023-11-21] MEDS: sodium chloride 0.9% 1,000 ML 30 ML IV (19:22)
[2023-11-21] MEDS: lidocaine-epi 1% 20 mL INJ INJECTION (19:48)
[2023-11-21] MEDS: BUPivacaine 0.25% INJ 10 mL INJECTION (19:48)
--- NOTE | 2023-11-21 20:02 | PM.OP ---
Operative Report Date of procedure: November 21, 2023 Pre-op diagnosis: Acute appendicitis Post-op diagnosis: Acute appendicitis, extensive intra-abdominal adhesions Post-op findings: There was acute appendicitis without perforation, there was extensive additions of the omentum to the anterior abdominal wall in the infraumbilical area at the level of previous laparotomy incision. There was ascites with dark pink fluid in the pelvis and the perihepatic space this was aspirated for culture and cytology. Liver appears cirrhotic and diseased, gallbladder was very distended. Procedure done: Laparoscopic appendectomy, laparoscopic lysis of additions Specimens removed/disposition: Appendix Surgeon: Orlando Arriaga MD Estimated blood loss: 10 Complications: None apparent Brief History: 38-year-old female with abdominal pain, CT scan show evidence of acute appendicitis and laparoscopic appendectomy was indicated. After discussion of all risk and benefits as documented in my preop note we decided to proceed. Procedure: Patient was brought into the OR, she was placed in a supine position. General anesthesia was given. Abdomen was prepped and draped in the usual sterile fashion and a timeout was conducted. The abdomen was accessed via infraumbilical incision measuring 1.5 cm with an open technique, Márquez trocar was placed and fixed to the fascia with 0 Vicryl. Initial pneumoperitoneum was successful and initial laparoscopy showed no evidence of visceral injury upon entry. There was immediate demonstration of a dense addition in the infraumbilical position at the level of previous laparotomy incision. 2 additional 5 mm trocars were placed in the left upper quadrant and left lower quadrant. This trocars were used to take down the adhesions from the omentum to the anterior abdominal wall. During dissection an additional trocar in the right flank was necessary in able to safely identify the anatomy and be able to take down the adhesions. About 60 minutes were taken taking the adhesions down. After this was were taken down laparoscopy demonstrated an inflamed appendix in the right lower quadrant and the liver appeared cirrhotic and with a very distended gallbladder. This findings are consistent with chronic liver disease. There was also free fluid at the level of the pelvis and perihepatic spaces this was aspirated and was sent for culture and cytology. I then proceeded to deflect the appendix anteriorly, the mesoappendix was taken down to the level of the base of the appendix. I then proceeded to transect the appendix at the base with a 45 mm blue load Endo JOSE ALBERTO stapler. After the appendix was transected the staple line appeared healthy and there was no evidence of bleeding, the appendix was taken out through the 12 mm trocar. This trocar was then removed and the fascia was closed with #0 Vicryl using a Segun-John suture passer under direct visualization. The left lower quadrant and right flank trocars were removed under direct visualization and the left upper quadrant trocar was used to evacuate the pneumoperitoneum and subsequently removed. The wounds were closed in layers using #4 Monocryl for the skin and Dermabond was applied. At the end of the procedure all counts were correct, the patient tolerated well the procedure was extubated and transferred to PACU in stable condition.
[2023-11-21 20:07] LABS: Cyto Order Verification Order Verified
--- NOTE | 2023-11-21 21:04 | SUR.PHASEI ---
Patient is having apnic moments, Rn holding simple mask in front of her face as she can not tolerate it sitting on her face. O2 dropped as low as 77. Patient is also bradycardic HR has dropped to 37 and running in mid 40's. Dr Brandt was notified as well as Dr. Arriaga. Continuing to monitor in PACU
--- NOTE | 2023-11-21 21:47 | ANE.PACU2 ---
Inpatient post-anesthesia follow up: Airway intact: Yes Vital signs: Temperature 97.2 F Pulse Rate 52 Respiratory Rate 14 Blood Pressure 118/72 Pulse Oximetry 97 Oxygen Delivery Me thod Room Air Oxygen Flow Rate Fraction of Inspir ed Oxygen Hydration adequate: Yes Nausea and vomiting: No Pain level: 1 Mental status: Baseline Additional Comments: NEVA with obstructive episodes, continuous pulse ox on floor with cpap ordered. Bradycardia when sleeping, but currently HD stable without dizziness, syncope, confusion. HR increases to 70s when patient awake and alert and sitting up.
[2023-11-21 22:30] LABS: ABG PCO2 41.8 mmHg (35-45); ABG PH Result 7.33 (7.35-7.45); Arterial Blood Gas Hematocrit 39.6 % (37-47); Blood Gas Allen Test Pos; Blood Gas Sample Site Radial, left; Blood Gas Sample Type Arterial; Carboxyhemoglobin 1.2 %THgb (0.4-20.1); HCO3 ABG 21.8 mmol/L (22-26); Ionized Calcium Level - ABG 1.2 mmol/L (1.1-1.4); Methemoglobin 0.4 % (0.4-1.5); Oxygen Device OXY MASK; Oxygen Saturation ABG 99.7; Potassium Level - ABG 4.1 mmol/L (3.5-5.0); Total Hemoglobin 12.9 g/dL (12-16)
--- NOTE | 2023-11-21 23:19 | P.CONIM_ITS ---
Providers/Reason For Consult 2 Consulting Physician/Specialty*: Willem Rivera/internal medicine Reason for Consult*: Postop respiratory distress Attending Physician: Orlando Arriaga MD Primary Care Provider: Kenji Almazan MD History of Present Illness History of Present Illness Elana López is a 38 year old female with a past medical history significant for opioid use disorder, amphetamine use disorder, nicotine/vaping use disorder, obstructive sleep apnea, obesity, anxiety, and depression who presented earlier today to the emergency department with right lower quadrant and right flank pain. She was found to have acute appendicitis. She underwent appendectomy by general surgery today. Discussed with anesthesia, she was noted to have sleep apnea with associated low heart rate while sleeping in PACU. She improved and was dispositioned to the floor on continuous pulse oximetry. Patient was reportedly having bradycardia and hypoxia for which general surgery was transferring to the intensive care unit. Internal medicine consulted due to bradycardia and hypoxia. Patient seen and evaluated in the intensive care unit. BiPAP started. She endorses a history of obstructive sleep apnea diagnosed on sleep study previously. She reports she tried a CPAP device previously at home and never tolerated it due to the mask and claustrophobia. She is having similar symptoms with current mask. Review of Systems 2 Narrative: A complete review of systems was obtained and is negative except as stated in HPI. Medications/Allergies Home Medications Medication Instructions Recorded Confirmed Last Taken Type fluoxetine 20 mg capsule (Prozac) 20 mg PO DAILY #30 caps 08/26/23 11/09/23 Unknown Rx Allergies Allergy/AdvReac Type Severity Reaction Status Date / Time No Known Allergies Allergy Verified 11/09/23 14:58 Current Medications Generic Name Dose Route Start Last Admin Trade Name Freq PRN Reason Stop Dose Admin Sodium Chloride 1,000 mls @ 30 mls/hr 11/21/23 18:15 11/21/23 21:55 Sodium Chloride 0.9% IV 11/22/23 18:14 Infused .Q24H SANGEETHA Infusion PFSH Acute 2 PFSH: Medical History (Updated 11/21/23 @ 23:28 by Willem Rivera MD) Suspected 2019-nCoV infection Amphetamine use disorder, severe, in sustained remission, dependence Anterior epistaxis Nasal obstruction Acquired deviated nasal septum Daily headache Opioid use disorder Amphetamine use disorder, severe, dependence Vapes nicotine containing substance Psychiatric care Nicotine dependence, cigarettes, uncomplicated Sedative, hypnotic or anxiolytic dependence, in remission Opioid dependence, in remission Amphetamine dependence, in remission Generalized anxiety disorder Major depressive disorder, recurrent, in full remission Surgical History History of appendectomy Family History Other Generalized anxiety disorder Social History Smoking and tobacco/nicotine status: current every day tobacco/nicotine user (.5 pack a day ) cigarettes Packs smoked per day: 0.5 Years cigarettes smoked: 17 and e-cigarettes E-Cigarette Details: vaporizer device E-cig/vape details: all the time Quit status (tobacco/nicotine): considering quitting Second hand smoke exposure: Yes Vitals/I&O/Wt Last Vital Signs Temp 97.7 F 11/21/23 22:45 Pulse 62 11/21/23 22:45 Resp 18 11/21/23 22:45 BP 130/81 11/21/23 22:45 Pulse Ox 100 11/21/23 22:45 O2 Del Method CPAP 11/21/23 22:45 11/21/23 11/21/23 11/22/23 14:59 22:59 06:59 Intake Total 2500 / 2500 Output Total 5 / Balance 2495 / 2495 Weight last 48 hrs Weight 82.599 kg Weight 81.647 kg Physical Exam 2 Narrative: General: Patient is awake and alert. Sitting in bed. Head: Normocephalic. Atraumatic. EOM intact. Neck: No JVD. Cardiovascular: RRR. No gallops. No murmurs. Lungs: Breath sounds are slightly diminished bilateral bases, otherwise clear to auscultation bilaterally. No crackles or wheezes. She is on BiPAP. Skin: No jaundice. No rashes. Abdomen: Hypoactive bowel sounds. No guarding. Extremities: No cyanosis or clubbing. Musculoskeletal: No swollen or erythematous joints. Neurological: Moves all 4 extremities. No myoclonus. Data 11/21/23 14:51 11/21/23 14:51 A&P Assessment and plan (1) Acute appendicitis: Status post laparoscopic appendectomy on 11/20 Postop course complicated by bradycardia and hypoxia Suspect presentation multifactorial secondary to NEVA and anesthesia side effect Patient has been transferred to the intensive care unit for closer monitoring Continue with continuous pulse oximetry and telemetry Hold respiratory depressants for now Start Toradol as needed Narcan ordered PRN; will administer if needed, respiratory rate currently in the 20s, no indication presently May cautiously reintroduce opiate analgesics overnight pending clinical course (2) Obstructive sleep apnea, adult: Will start BiPAP as NEVA is likely contributing to presentation She does not tolerate BiPAP, can consider release nasal cannula to help with nocturnal hypoxia/apnea (3) Opioid use disorder: Patient would benefit from cessation of polysubstance abuse (4) Amphetamine use disorder, severe, dependence: Patient would benefit from cessation of polysubstance abuse (5) Sedative, hypnotic or anxiolytic use disorder, moderate, in sustained remission: Patient would benefit from cessation of polysubstance abuse (6) Nicotine dependence, cigarettes, uncomplicated: Would benefit from nicotine cessation (7) Hepatitis C: Patient is hepatitis C antibody positive Follow-up RNA level Plan Thank you for this consultation. Hospitalist/internal medicine service will continue to follow. Consult Attestations 2 Medical Necessity Statement: Per Primary Coding Level of Care Code Acute Code for [facility] Fwd Diagnoses Acute appendicitis K35.80 Obstructive sleep apnea, adult G47.33 Opioid use disorder F11.90 Amphetamine use disorder, severe, dependence F15.20 Sedative, hypnotic or anxiolytic use disorder, moderate, in sustained remission F13.21 Nicotine dependence, cigarettes, uncomplicated F17.210 Hepatitis C B19.20
[2023-11-21 23:24] LABS: Hepatitis C Virus Antibody Reactive (Nonreactive)
[2023-11-21] MEDS: lactated ringers 1,000 ML 100 ML IV (23:25)
--- NOTE | 2023-11-21 23:33 | PC.NURSE ---
Patient brought to room 275 from PACU by stretcher at 2144. Patient was lethargic, awakened with verbal stimuli but falls asleep between sentences. Frequent periods of apnea noted during sleep, shallow breathing while awake, Oxygen saturation dropping in low 80s frequently, Continuous pulse ox monitor applied, Respiratory therapist notified, patient is sinus anne on tele with HR dropping to mid 30's, Surgeon notified, Hospitalist consult and transfer to ICU requested per Dr. Negron.
--- NOTE | 2023-11-21 23:53 | XRR_ITS ---
PROCEDURE INFORMATION: Exam: XR Chest Exam date and time: 11/22/2023 12:10 AM Age: 38 years old Clinical indication: Shortness of breath; Patient HX: Persistent hypoxia and bradycardia post appendectomy at 2100 hours yesterday. ; Additional info: Postop hypoxia TECHNIQUE: Imaging protocol: Radiologic exam of the chest. Views: 1 view. COMPARISON: CR XR chest 1V [id number] 03/22/2017 8:39 PM FINDINGS: Lungs: The lungs are clear. No pulmonary consolidation. Pleural spaces: No pleural effusion or pneumothorax. Heart/Mediastinum: The cardiomediastinal silhouette is within normal limits. Bones/joints: No acute osseous abnormalities are seen. XR/XR chest 1V portable [id number] IMPRESSION: No acute cardiopulmonary disease.
[2023-11-22] VITALS (47 sets, daily range): BP systolic 98–146; BP diastolic 62–91; PULSE 41–72; RESP 10–22; TEMP 36.4–36.6; O2SAT 94–100; BMI 32.2
--- NOTE | 2023-11-22 00:22 | PC.NURSE ---
Night time hospitalist Dr. Rivera notified of prior history of suicidal ideation/self harm and that patient sees a provider at [facility] [place]. Report called to ICU nurse GAEL Deluna. Patient transferred to ICU room 6 by hospital bed. All belongings given to boyfrienyen Mario.
--- NOTE | 2023-11-22 01:23 | PC.NURSE ---
Patient's mother Maryse Lee notified for update and transfer to ICU, She is very appreciative of the call.
[2023-11-22] MEDS: piperacillin-tazobactam 3.375 GM in sodium chloride 0.9% (plus) 50 ML IV (05:08)
[2023-11-22 05:46] LABS: Basophils % 0.1 %; Hematocrit 41.6 % (36-47); Lymphocytes # 1.2 10^3/uL (0.8-4.8); Mean Corpuscular HGB Conc 32.2 g/dL (30-55); Mean Corpuscular Hemoglobin 31.3 pg (27-33); Mean Corpuscular Volume 97.2 fl (85-98); Mean Platelet Volume 11.1 fL (7.4-10.4); Monocytes # 0.5 10^3/uL (0.2-0.9); Monocytes % 3.8 %; Neutrophils # 11.11 10^3/uL (1.8-7.7); Neutrophils % 86.8 %; Nucleated Red Blood Cells % 0 %; Platelet Count 218 10^3/cmm (157-399); Red Blood Count 4.28 10^6/uL (3.85-5.65); Red Cell Distribution Width 13.1 % (12.1-15.1); White Blood Count 12.79 10^3/uL (3.29-11.43)
[2023-11-22 06:08] LABS: Alanine Aminotransferase 28 U/L (0-33); Albumin Level 4.4 g/dL (3.5-5.2); Alkaline Phosphatase 118 U/L (35-105); Anion Gap 14.7 (5-19); Aspartate Amino Transferase 15 U/L (0-32); Blood Urea Nitrogen 12 mg/dL (6-20); Calcium 9.1 mg/dL (8.5-10.5); Carbon Dioxide 25 mmol/L (22-29); Chloride 101 mmol/L (98-107); Creatinine Clr Calc Pharmacy 97.9241; Globulin 3.2 g/dL (1.3-4.6); Glomerular Filtration Rate 80.7 mL/min (90-130); Glucose 156 mg/dL (65-115); Magnesium 2.2 mg/dL (1.7-2.3); Osmolality Calculated 285 mOsm/kg (285-295); Phosphorus 3.8 mg/dL (2.5-4.5); Potassium 4.7 mmol/L (3.5-5.1); Sodium 136 mmol/L (136-145); Total Bilirubin 1.2 mg/dL (0.15-1.2); Total Protein 7.6 g/dL (6.6-8.7)
[2023-11-22 06:27] LABS: Hepatitis A Antibody IgM Non-Reactive (Nonreactive); Hepatitis B Core AB, Total Non-Reactive (Nonreactive); Hepatitis B Surface Antigen Non-Reactive (Nonreactive); Hepatitis C Virus Antibody Reactive (Nonreactive)
[2023-11-22 07:35] LABS: Hepatitis B Surface AB > 1000.0 (11.5-1000)
--- NOTE | 2023-11-22 08:22 | ECG_ITS ---
[facility] Test Date: 2023-11-22 Pat Name: Elana López Department: Room: [facility] Gender: Female Wilton Weaver: : 1985 Requested By: Mykel Jackson Order Number: [id number] Reading MD: Jan Gr M.D. Measurements Intervals [place] Rate: 51 P: 55 NH: 152 QRS: 29 QRSD: 90 T: 47 QT: 438 QTc: 407 Interpretive Statements SINUS BRADYCARDIA Compared to ECG 03/22/2017 21:00:21 Sinus rhythm no longer present Electronically Signed On 11-22-2023 20:28:29 CDT by Jan Gr M.D. [id number]
--- NOTE | 2023-11-22 08:23 | USCV_ITS ---
Elana López Age: 38 Gender: F : 1985 Exam Date: 11/22/2023 09:43 Ordering Phys: Mykel Jackson MD Technologist: Jose Alejandro Devlin Exam Location: [facility] [place] Indication: anne BP: 125 / 75 HR: 49 Rhythm: Sinus Technical Quality: Adequate MEASUREMENTS (Male / Female) Normal Values 2D ECHO LV Diastolic Diameter PLAX 3.8 cm 4.2 - 5.9 / 3.9 - 5.3 cm IVS Diastolic Thickness 0.8 cm 0.6 - 1.0 / 0.6 - 0.9 cm IVS Systolic Thickness 1.6 cm LVPW Diastolic Thickness 1.3 cm 0.6 - 1.0 / 0.6 - 0.9 cm LVPW Systolic Thickness 2.0 cm LVOT Diameter 2.0 cm LV Ejection Fraction 2D Teich 57.8 % LV Ejection Fraction MOD 2C 75.5 % LV Ejection Fraction 2C AL 74.7 % LA Diameter 3.8 cm RA Systolic Volume 4C AL 32.0 ml RA Systolic Volume 4C MOD 32.1 ml LA Sys Volume AL 56.5 cm cubed LA Sys Volume Index AL 29.1 cm cubed/m squared Aorta at Sinotubular Diameter 1.9 cm IVC Diameter 1.9 cm M-MODE LA Ao Ratio MM 1.3 AV Cusp Separation MM 1.7 cm DOPPLER AV Peak Velocity 142.7 cm/s LVOT Peak Velocity 121.0 cm/s AV Area Cont Eq vti 2.8 cm squared AV Area Cont Eq pk 2.8 cm squared MV Peak Velocity 142.0 cm/s MV Area PHT 4.1 cm squared Mitral E to A Ratio 1.9 TR Peak Velocity 295.0 cm/s TR Peak Gradient 34.8 mmHg TR Mean Velocity 241.0 cm/s TR Mean Gradient 24.3 mmHg TR Velocity Time Integral 75.5 cm PV Peak Velocity 94.0 cm/s RV Ejection Time 0.3 s FINDINGS Left Ventricle Normal left ventricular size and systolic function, EF 75%. No regional wall motion abnormalities. Mild left ventricular hypertrophy. Right Ventricle The right ventricle is normal in size and function. Right Atrium The right atrium is normal in size. Left Atrium Mildly increased left atrial size. Mitral Valve Mild mitral valve regurgitation. Aortic Valve No gross abnormalities noted Tricuspid Valve Trace tricuspid valve regurgitation. Estimated pulmonary artery peak systolic pressure 38 mmHg with a mean pressure of 27 mmHg Pulmonic Valve No gross abnormalities noted Pericardium Normal pericardium without effusion. Aorta Normal ascending aorta dimension. IVC The inferior vena cava appears normal. CONCLUSIONS Normal left ventricular size and systolic function, EF 75%. No regional wall motion abnormalities. Mild left ventricular hypertrophy. Mild mitral valve regurgitation. Mildly increased left atrial size. Mild pulmonary hypertension with an estimated pulmonary artery mean pressure of 27 mmHg, peak systolic pressure of 38 mmHg There is no pericardial effusion. There are no intracardiac masses. No similar previous studies are available for comparison Dr Jan Gr MD FACC (Electronically Signed) Final Date: 22 November 2023 16:30 S
[2023-11-22] MEDS: pantoprazole DR 40 mg Tablet PO (08:45)
[2023-11-22 09:15] LABS: Troponin(5th) Baseline < 6 ng/L (0-10)
[2023-11-22 09:24] LABS: Thyroid Stimulating Hormone 1.08 uIU/mL (0.27-4.20)
[2023-11-22] MEDS: ketorolac 30 mg/mL INJ 15 MG IVP (10:08)
--- NOTE | 2023-11-22 10:19 | PC.NURSE ---
Toradol given for abdomnen and shoulder pain from what patient describes as build up gas pain.
--- NOTE | 2023-11-22 10:22 | ECG_ITS ---
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 Measurements Intervals [place] Rate: 56 P: 56 CO: 151 QRS: 41 QRSD: 92 T: 50 QT: 431 QTc: 418 Interpretive Statements SINUS BRADYCARDIA WITH SINUS ARRHYTHMIA Compared to ECG 11/22/2023 08:31:15 No significant changes Electronically Signed On 11-22-2023 20:42:04 CDT by Jan Gr M.D. [id number]
--- NOTE | 2023-11-22 10:53 | P.DS_ITS ---
Discharge Providers Date of Admission: 11/21/23 19:48 Date of Discharge: November 22, 2023 Attending Provider at Admission: Orlando Arriaga MD Attending Provider at Discharge: Mykel Jackson MD Primary Care Provider: Kenji Almazan MD Diagnoses at Discharge Discharge Diagnosis (1) Acute appendicitis: Status: Acute (2) Obstructive sleep apnea, adult: Status: Acute (3) Opioid use disorder: Status: Acute (4) Amphetamine use disorder, severe, dependence: Status: Acute (5) Sedative, hypnotic or anxiolytic use disorder, moderate, in sustained remission: Status: Acute (6) Nicotine dependence, cigarettes, uncomplicated: Status: Acute (7) Hepatitis C: Status: Acute Reason for Visit Reason for Visit: abd pain n/v Hospital Course Hospital Course Is a 38-year-old female who presented to the emergency department complaining of significant abdominal pain. Workup was remarkable for elevated white count and a CAT scan showing acute appendicitis. Patient was taken to the OR for laparoscopic appendectomy, appendectomy was done there was other significant findings during the operation including significant adhesions from the omentum to the anterior abdominal wall at the level of the infraumbilical laparotomy incision. In addition to that patient had cirrhosis of the liver with a very unhealthy looking liver, several pictures were taken and these are stored in the chart for further reference. Significant findings of her liver Beatriz imaging and IntraOp trigger and investigation for possible hepatitis, hepatitis C antibody is positive and patient will require follow-up of RNA levels as outpatient. In the immediate postoperative. Patient was noted to be bradycardic and drowsy, this likely a combination of history of sleep apnea as well as difficulty metabolizing anesthetic due to poor liver function. Patient was transferred to the ICU for monitoring overnight, she did well this morning her heart rate is in the 60s and her abdominal pain is appropriate no other significant issues. Patient will be discharged home to follow-up as an outpatient and we will provide also referral for primary care for management of the hepatitis C infection. Physical Exam GI: OTHER: Abdomen soft, appropriately tender to palpation, surgical incisions are covered with Dermabond Discharge Data Studies Completed and Pending Completed Studies During Hospitalization Category Date Time Status CT abdomen pelvis wo con [id number] Stat Cat Scan 11/21/23 15:57 Completed XR chest 1V portable [id number] Urgent Exams 11/21/23 23:53 Completed US gall bladder [id number] Stat Ultrasound 11/21/23 15:56 Completed Pending at discharge Category Date Time Status Body Fluid Culture & GS Routine Lab 11/21/23 19:42 Received Hepatitis C RNA Viral Load Qnt Routine Lab 11/21/23 23:24 Received Hepatitis C RNA Viral Load Qnt Routine Lab 11/22/23 06:28 Received Troponin(5th) 2 Hour. Timed Lab 11/22/23 10:22 Ordered Troponin(5th) 6 hour. Timed Lab 11/22/23 14:22 Ordered Cytology [PTH] Routine Pth 11/21/23 19:39 Received Pathology: Surgical [PTH] Routine Pth 11/21/23 20:11 Ordered CV. echo complete* [id number] Routine Ultrasound 11/22/23 08:23 Taken Radiology Impressions Gallbladder Ultrasound 11/21/23 15:56 IMPRESSION: 1. Heterogeneous lesion with a central scar in the left hepatic lobe. Top differential and a female of this age is focal nodular hyperplasia. Differential also includes hepatic adenoma, fibro lamellar hepatocellular carcinoma, or cavernous hemangioma. 2. There is gallbladder wall thickening measuring 5 mm without stones visualized raising concern for acalculous cholecystitis. REFERENCES: Fior MIN, et al. Management of Incidental Liver Lesions on CT: A White Paper of the ACR Incidental Findings Committee. J Am Rodo Radiol. 2017;14(11):5053-1876. Abdomen/Pelvis CT 11/21/23 15:57 IMPRESSION: Acute appendicitis. ADDENDUM: 11/21/23 1702 CRITICAL RESULT: The study was personally discussed on the telephone with DEYANIRA Thomas on 11/21/2023 5:01 PM CDT. The results were understood and acknowledged. Chest X-Ray 11/21/23 23:53 IMPRESSION: No acute cardiopulmonary disease. Laboratory Results WBC 12.79 10^3/uL (3.29-11.43) H 11/22/23 03:08 RBC 4.28 10^6/uL (3.85-5.65) 11/22/23 03:08 Hgb 13.40 g/dL (11.27-16.99) 11/22/23 03:08 Hct 41.6 % (36-47) 11/22/23 03:08 MCV 97.2 fl (85-98) 11/22/23 03:08 MCH 31.3 pg (27-33) 11/22/23 03:08 MCHC 32.2 g/dL (30-55) 11/22/23 03:08 RDW 13.1 % (12.1-15.1) 11/22/23 03:08 Plt Count 218 10^3/cmm (157-399) 11/22/23 03:08 MPV 11.1 fL (7.4-10.4) H 11/22/23 03:08 Neut % (Auto) 86.8 % 11/22/23 03:08 Lymph % (Auto) 9.0 % 11/22/23 03:08 [place] % (Auto) 3.8 % 11/22/23 03:08 Eos % (Auto) 0.0 % 11/22/23 03:08 Baso % (Auto) 0.1 % 11/22/23 03:08 Neut # (Auto) 11.11 10^3/uL (1.8-7.7) H 11/22/23 03:08 Lymph # (Auto) 1.2 10^3/uL (0.8-4.8) 11/22/23 03:08 [place] # (Auto) 0.5 10^3/uL (0.2-0.9) 11/22/23 03:08 Eos # (Auto) 0.0 10^3/uL (0.0-0.8) 11/22/23 03:08 Baso # (Auto) 0.0 10^3/uL (0.0-0.1) 11/22/23 03:08 Nucleated RBC % (auto) 0 % 11/22/23 03:08 Nucleated RBCs # 0.0 /100WBC 11/22/23 03:08 Specimen Type Arterial 11/21/23 22:20 Sample Site Radial, left 11/21/23 22:20 ABG pH 7.33 (7.35-7.45) L 11/21/23 22:20 ABG pCO2 41.8 mmHg (35-45) 11/21/23 22:20 ABG pO2 144.0 mmHg (80.0-100.0) H 11/21/23 22:20 ABG HCO3 21.8 mmol/L (22-26) L 11/21/23 22:20 ABG O2 Saturation 99.7 11/21/23 22:20 ABG Base Excess -4.0 mmol/L (-2.0-2.0) L 11/21/23 22:20 Jose Test Pos 11/21/23 22:20 A-a O2 Gradient Not Reportable 11/21/23 22:20 Hematocrit 39.6 % (37-47) 11/21/23 22:20 Hgb O2 Saturation 98.0 % (95-100) 11/21/23 22:20 Carboxyhemoglobin 1.2 %THgb (0.4-20.1) 11/21/23 22:20 Methemoglobin 0.4 % (0.4-1.5) 11/21/23 22:20 Total Hemoglobin 12.9 g/dL (12-16) 11/21/23 22:20 Sodium 137.0 mmol/L (131-143) 11/21/23 22:20 Potassium 4.1 mmol/L (3.5-5.0) 11/21/23 22:20 Glucose 124.0 mg/dL (70-115) H 11/21/23 22:20 Ionized Calcium 1.2 mmol/L (1.1-1.4) 11/21/23 22:20 O2 Delivery Device Oxy mask 11/21/23 22:20 O2 Liters/Min 2.0 % 11/21/23 22:20 Debone Processing Supervisor ID [email or web address] 11/21/23 22:20 Sodium 136 mmol/L (136-145) 11/22/23 03:08 Potassium 4.7 mmol/L (3.5-5.1) 11/22/23 03:08 Chloride 101 mmol/L (98-107) 11/22/23 03:08 Carbon Dioxide 25 mmol/L (22-29) 11/22/23 03:08 Anion Gap 14.7 (5-19) 11/22/23 03:08 BUN 12 mg/dL (6-20) 11/22/23 03:08 Creatinine 0.8 mg/dL (0.5-0.9) 11/22/23 03:08 GFR Calculation 80.7 mL/min (90-130) L 11/22/23 03:08 Glucose 156 mg/dL (65-115) H 11/22/23 03:08 Calculated Osmolality 285 mOsm/kg (285-295) 11/22/23 03:08 Calcium 9.1 mg/dL (8.5-10.5) 11/22/23 03:08 Phosphorus 3.8 mg/dL (2.5-4.5) 11/22/23 03:08 Magnesium 2.2 mg/dL (1.7-2.3) 11/22/23 03:08 Total Bilirubin 1.2 mg/dL (0.15-1.2) 11/22/23 03:08 AST 15 U/L (0-32) 11/22/23 03:08 ALT 28 U/L (0-33) 11/22/23 03:08 Alkaline Phosphatase 118 U/L (35-105) H 11/22/23 03:08 Troponin T Baseline < 6 ng/L (0-10) 11/22/23 08:39 Total Protein 7.6 g/dL (6.6-8.7) 11/22/23 03:08 Albumin 4.4 g/dL (3.5-5.2) 11/22/23 03:08 Globulin 3.2 g/dL (1.3-4.6) 11/22/23 03:08 Lipase 21 U/L (13-60) 11/21/23 14:51 TSH 1.08 uIU/mL (0.27-4.20) 11/22/23 08:39 HCG, Qual Negative (Negative) 11/21/23 14:51 Urine Color Yellow (Yellow) 11/21/23 14:51 Urine Appearance Clear (CLEAR) 11/21/23 14:51 Urine pH 5 (5-7) 11/21/23 14:51 Ur Specific [place] 1.025 (1.005-1.030) 11/21/23 14:51 Urine Protein Neg (Negative) 11/21/23 14:51 Urine Glucose (UA) Norm (Normal) 11/21/23 14:51 Urine Ketones 1+ (Negative) H 11/21/23 14:51 Urine Blood Neg (Negative) 11/21/23 14:51 Urine Nitrate Negative (Negative) 11/21/23 14:51 Urine Bilirubin Neg (Negative) 11/21/23 14:51 Urine Urobilinogen Norm mg/dL (Negative) 11/21/23 14:51 Ur Leukocyte Esterase Negative (Negative) 11/21/23 14:51 Hepatitis A IgM Ab Non-reactive (Nonreactive) 11/22/23 03:08 Hep Bs Antigen Non-reactive (Nonreactive) 11/22/23 03:08 Hep Bs Antibody > 1000.0 (11.5-1000) H 11/22/23 03:08 Hep B Core Total Ab Non-reactive (Nonreactive) 11/22/23 03:08 Hepatitis C Antibody Reactive (Nonreactive) H 11/22/23 03:08 Vitals Last Vital Signs Temp 97.8 F 11/22/23 08:55 Pulse 52 L 11/22/23 10:15 Resp 18 11/22/23 10:15 BP 125/75 11/22/23 08:55 Pulse Ox 100 11/22/23 10:15 O2 Del Method Room Air 11/22/23 08:55 O2 Flow Rate 2 11/22/23 05:15 FiO2 28 11/22/23 01:00 Discharge Plan Discharge Patient Disposition: Home Condition: Stable Prescriptions: New amoxicillin-pot clavulanate 875-125 mg tablet 1 tab PO BID Qty: 14 0RF meloxicam 7.5 mg tablet 7.5 mg PO DAILY Qty: 7 0RF acetaminophen 325 mg capsule 650 mg PO Q6H Qty: 30 0RF Continued fluoxetine [Prozac] 20 mg capsule 20 mg PO DAILY Qty: 30 2RF Discharge Orders: Discharge Order (Routine); Ordered 11/22/23 Ordered By: Orlando Arriaga Referrals: Orlando Arriaga MD [Physician] - (2 weeks) Kenji Almazan MD [Primary Care Provider] - 4-7 days Discharge Diet: Advance as tolerated Discharge Activity: Limit activity as instructed Patient Instructions: Opioid Safety, Pain Management Activity Restrictions/Additional Instructions: No heavy lifting for the next 4 weeks. You can shower starting tomorrow, let soap and water run over your wounds and then pat and dry. Please return to the hospital for fever chills severe abdominal pain that is getting worse or purulence from your wounds Discharge Attestations Time Spent in Discharge Care*: less than 30 min Status at Discharge: Cognitive status at discharge: cognitively intact , Behavioral status at discharge: cooperative , Quality Metrics Clinical Quality Measures [ No reported AMI, CVA or VTE this stay] Coding Level of Care Code Acute Code for [facility] Diagnoses Acute appendicitis K35.80 Obstructive sleep apnea, adult G47.33 Opioid use disorder F11.90 Amphetamine use disorder, severe, dependence F15.20 Sedative, hypnotic or anxiolytic use disorder, moderate, in sustained remission F13.21 Nicotine dependence, cigarettes, uncomplicated F17.210 Hepatitis C B19.20
--- NOTE | 2023-11-22 11:00 | PM.MISC ---
Miscellaneous Note Note: Patient will need treatment for hepatitis C and evaluation by spotter driver for liver cirrhosis I will ask her to follow-up with her PCP Patient stating that she PAP machine has been returned because she was not using it currently is homeless I have asked her to get another sleep study now to get another CPAP machine once she is able to settle Her bradycardia was most likely related to polypharmacy anesthesia effect and drug overdose EKG showing sinus bradycardia, TSH is normal,
[2023-11-23 16:35] LABS: HEP C RNA Viral Load Quant <1.18 NOT DETECTED Log IU/mL (NOT DETECTED); HEP C RNA Viral Load Quant <15 NOT DETECTED IU/mL (NOT DETECTED)
[2023-11-23 16:35] LABS: HEP C RNA Viral Load Quant <1.18 NOT DETECTED Log IU/mL (NOT DETECTED); HEP C RNA Viral Load Quant <15 NOT DETECTED IU/mL (NOT DETECTED)
== END 2023-11-22 11:34 | disposition home or self-care (01) ==
LOC: ER 17:37 → OR 17:53 → MEDSURG 19:49 → ICU 11-22 01:00
PROVIDERS: Emergency Medicine; Admitting Provider Surgery; Emergency Provider Family Medicine; PCP Family Medicine; Visit Provider Internal Medicine
PROC: 0DTJ4ZZ Resection of Appendix, Percutaneous Endoscopic Approach (ICD-10-PCS; CPT 44970; principal; 2023-11-21 18:00)
DX: K35.33 Acute appendicitis with perforation, localized peritonitis, and gangrene, with abscess (principal); B19.20 Unspecified viral hepatitis C without hepatic coma; G47.33 Obstructive sleep apnea (adult) (pediatric); F11.90 Opioid use, unspecified, uncomplicated; F15.20 Other stimulant dependence, uncomplicated; F13.21 Sedative, hypnotic or anxiolytic dependence, in remission; F17.210 Nicotine dependence, cigarettes, uncomplicated; F41.1 Generalized anxiety disorder
CPT/HCPCS: 36415; 36600; 71045; 74176; 76705; 80051; 80053; 80503; 81003; 81025; 82330; 82805; 83690; 83735; 84100; 84443; 84484; 85025; 86705; 86706; 86709; 86803; 87070; 87075; 87205; 87340; 87522; 88112; 88304; 93005; 93306; 94660; 96365; 96374; 96375; 96376; 99285; G0378; J0131; J1100; J1170; J1885; J2270; J2405; J2543; J2704; J2710; J3010; J3490; J7030; J7120

== ENCOUNTER 2024-01-16 10:00 | Emergency (ER) | payer BC, MEDICAID, SELFPAY ==
[2024-01-16 10:08] VITALS: BP 118/77; PULSE 64; RESP 16; TEMP 36.4; O2SAT 99
--- NOTE | 2024-01-16 10:39 | ED_ITS ---
HPI - Allergic Reaction General: Chief complaint: Allergic Reaction Stated complaint: allergic reation to new med Time Seen by Provider: 01/16/24 10:26 Source: patient Mode of arrival: ambulatory Limitations: no limitations History of Present Illness: HPI narrative: Patient made her way to the emergency room because she is concerned about sensation of throat swelling and feeling hunger voice is changing. She states the symptoms began approximately an hour or so prior to arrival. She has taken 2 new medications over the past 12 hours. She took olanzapine last night and then propranolol this morning. She has not taken either of those medications before. They are both being prescribed by her mental health clinic. She also took ibuprofen which she has taken many times before without difficulty. She denies any wheezing or shortness of breath. She is able to drink liquids successfully and she denies any itching or rash or abdominal pain. She denies any other potential allergens to include insect or bee stings, history of food allergies or new foods recently etc. MD complaint: allergic reaction Associated symptoms: Deny abdominal pain, nausea or vomiting Review of Systems Const: Denies: fever(s) or chills Eyes: Denies: change in vision Card: Denies: chest pain or palpitations Resp: Denies: wheezing or stridor GI: Denies: abdominal pain, nausea, vomiting or diarrhea : Denies: flank pain, difficulty voiding or dysuria Musc: Denies: neck pain, back pain or extremity pain Skin/Breast: Denies: rash, pruritus or erythema Neuro: Denies: headache(s), numbness in extremities or weakness in extremities Psych: Reports: anxiety [facility] ED PFSH: Medical History Suspected 2019-nCoV infection Amphetamine use disorder, severe, in sustained remission, dependence Anterior epistaxis Nasal obstruction Acquired deviated nasal septum Daily headache Opioid use disorder Amphetamine use disorder, severe, dependence Vapes nicotine containing substance Psychiatric care Nicotine dependence, cigarettes, uncomplicated Sedative, hypnotic or anxiolytic dependence, in remission Opioid dependence, in remission Amphetamine dependence, in remission Generalized anxiety disorder Major depressive disorder, recurrent, in full remission Surgical History History of appendectomy Family History Other Generalized anxiety disorder Social History Smoking and tobacco/nicotine status: current every day tobacco/nicotine user cigarettes Packs smoked per day: 0.5 Years cigarettes smoked: 17 and e- cigarettes E-Cigarette Details: vaporizer device E-cig/vape details: all the time Quit status (tobacco/nicotine): considering quitting Second hand smoke exposure: Yes Physical Exam Narrative: EXAM NARRATIVE: She is alert appears to be cooperative and comfortable. She answers questions in a goal-directed voice. Voice sounds husky but I have no baseline to compare Const: COMMON NORMALS: no acute distress, average body habitus, patient oriented x3, healthy appearing and alert GENERAL APPEARANCE: cooperative and comfortable HENMT: COMMON NORMALS: normocephalic, Normal external nose present, Normal nasal mucous membranes and turbinates present, moist oral mucous membranes and oropharynx normal HEAD & SCALP: normocephalic FACE & SINUS: face symmetric; no edema NOSE: Normal external nose present and Normal nasal mucous membranes and turbinates present THROAT: posterior oropharynx normal, tonsils normal and uvula midline Eye: COMMON NORMALS: Equal, round and reactive pupils present, EOMs intact bilaterally and conjunctivae normal CONJUNCTIVA: Yes conjunctivae normal PUPIL: Yes Equal, round and reactive pupils present Neck/C-Spine: COMMON NORMALS: full ROM, no lymphadenopathy and supple Chest: COMMONS NORMALS: normal inspection of the chest Resp: COMMON NORMALS: normal respiratory effort, No retractions, No use of accessory muscles and clear to auscultation bilaterally EFFORT & INSPECTION: No stridor AUSCULTATION: clear to auscultation bilaterally Cardio: COMMON NORMALS: regular rate, regular rhythm, No murmurs present (Cardio) and Peripheral pulses 2+ throughout RATE: regular rate RHYTHM: regular rhythm PERIPHERAL PULSES: Peripheral pulses 2+ throughout GI: COMMON NORMALS: Normal to inspection, nondistended, normoactive bowel sounds present, Soft to palpation and non-tender PALPATION: Yes Soft to palpation : COMMON NORMALS: Yes no CVA tenderness BLADDER/KIDNEY EXAM: Yes no CVA tenderness Back/Pelvis: COMMON NORMALS: no CVA tenderness, thoracic and lumbar spine normal to inspection, no thoracic nor lumbar tenderness and thoraco-lumbar ROM normal Extremity: COMMON NORMALS: normal to inspection, full ROM and capillary refill normal Neuro: COMMON NORMALS: patient oriented x3, moves all extremities, no focal motor deficits and no sensory deficits noted SENSORIUM/ORIENTATION: Yes alert Psych: COMMON NORMALS: mental status grossly normal Course Reevaluation(s): Reevaluation #1: Patient was reevaluated. She states subjectively she feels great and at baseline. She denies any difficulty swallowing with sensation of fullness in her throat wheezing itching or other constitutional symptoms. Her voice seems to be less hoarse she phonates well. Her chest is clear without any wheezing and she has no other stigmata physically to suggest an ongoing reaction. Discussed expected course, home care and the need to discontinue both feel as olanzapine as well as the propranolol until she can talk with her prescribing physician. Time: 12:41 Vital Signs: Vital signs: Vital Signs Temperature 97.6 F 01/16/24 10:08 Pulse Rate 57 L 01/16/24 12:00 Respiratory Rate 16 01/16/24 12:00 Blood Pressure 100/62 01/16/24 12:00 Pulse Oximetry 99 01/16/24 12:00 Oxygen Delivery Me thod Room Air 01/16/24 12:00 MDM - Allergic Reaction Medical Decision Making This patient presented to the emergency department with symptoms suggestive of possible reaction to medication. She had recently started to medication within the last 12 hours that she has never taken before. She presented with subjective sensation of throat feeling full with some hoarseness of her voice without any other symptoms. No prior history of anaphylaxis medication reactions etc. No other contributing factors to suggest other potential etiologies. Clinical examination was reassuring. She did have what could be perceived as some mild hoarseness to her voice but no other stigmata suggestive of anaphylaxi s etc. Nonetheless because of the presentation we proceeded with usual treatment including IM epinephrine, IV steroids and IV antihistamines. After a period of time post therapy in the emergency department she displayed subjective and objective marked improvement without any evidence of rebound etc. at this time. She has had what 1 could likely construed as medication related reaction unfortunately with 2 new medication is unknown which could be the potential allergen. We advised her to not take either medication and continue on oral antihistamines and we will prescribe oral steroids. We also discussed potential albeit very low of rebound and reasons to return to the emergency department. Differential Diagnosis Likely allergic reaction No radiology studies performed this visit Discharge Plan Discharge Patient Disposition: Home Clinical Impression: Allergic reaction Qualifiers: Encounter type: initial encounter Qualified Code(s): T78.40XA - Allergy, unspecified, initial encounter Condition: Stable Prescriptions: New prednisone 20 mg tablet 20 mg PO BID 5 Days Qty: 10 0RF No Action fluoxetine [Prozac] 20 mg capsule 20 mg PO DAILY Qty: 30 2RF prednisone 20 mg tablet 60 mg PO DAILY 5 Days Qty: 15 0RF famotidine [Pepcid] 40 mg tablet 40 mg PO BID Qty: 10 0RF amoxicillin-pot clavulanate 875-125 mg tablet 1 tab PO BID Qty: 14 0RF meloxicam 7.5 mg tablet 7.5 mg PO DAILY Qty: 7 0RF acetaminophen 325 mg capsule 650 mg PO Q6H Qty: 30 0RF Discharge Orders: Discharge ED (Routine); Ordered 01/16/24 Ordered By: Martín Dawn Discharge Diet: Usual diet Discharge Activity: Resume usual activity Patient Instructions: Opioid Safety, Pain Management Activity Restrictions/Additional Instructions: As we discussed while you are in the emergency department we think that you likely had a reaction to one of your 2 new medications but it is impossible to determine which one in the emergency department. Therefore we recommend you do not take your olanzapine or your propranolol until you discuss with your prescribing physician. We have prescribed prednisone to take for the next 5 days to help reduce any rebound reaction we also recommend you purchase Pepcid [id number] 10 mg tablets and take 2 of those 3 times a day for the next 5 days. If you have recurrence of your symptoms return to the emergency department immediately for reevaluation. Coding Level of Care Code ED Settlement Agent for Geoffrey Aguirre
[2024-01-16] MEDS: EPINEPHrine 1 mg/mL INJ 0.3 MG IM (11:19)
[2024-01-16] MEDS: famotidine 20 mg/2 mL INJ IVP (11:23)
[2024-01-16] MEDS: diphenhydrAMINE 50 mg/mL SDV 1mL 25 MG IVP (11:23)
[2024-01-16] MEDS: dexamethasone 10 mg/mL INJ IVP (11:24)
[2024-01-16 11:35] VITALS: BP 100/62; PULSE 59; RESP 16; O2SAT 100
[2024-01-16 12:00] VITALS: BP 100/62; PULSE 57; RESP 16; O2SAT 99
[2024-01-16 12:59] VITALS: BP 101/65; PULSE 56; RESP 16; TEMP 36.4; O2SAT 100
== END 2024-01-16 12:58 | disposition home or self-care (01) ==
PROVIDERS: Emergency Provider Emergency Medicine
DX: T78.40XA Allergy, unspecified, initial encounter (principal); F17.210 Nicotine dependence, cigarettes, uncomplicated; F17.290 Nicotine dependence, other tobacco product, uncomplicated; X58.XXXA Exposure to other specified factors, initial encounter
CPT/HCPCS: 96372; 96374; 96375; 99284; J0171; J1100; J1200; J3490

== ENCOUNTER → 2024-02-01 11:15 | Outpatient (BNVA) | payer BC, MEDICAID, SELFPAY | PROVIDERS: Visit Provider Nurse Practitioner Family | DX: R05.9 Cough, unspecified (principal) | CPT/HCPCS: 87400 ==

== ENCOUNTER 2024-02-07 01:33 | Emergency (ER) | payer BC, MEDICAID, SELFPAY ==
[2024-02-07 01:37] VITALS: BP 148/80; PULSE 103; RESP 18; TEMP 36.6; O2SAT 97; BMI 31.8
[2024-02-07 01:46] VITALS: BP 138/63; PULSE 88; RESP 18; O2SAT 98
--- NOTE | 2024-02-07 02:50 | ED.C_ITS ---
HPI - Psych General: Chief Complaint: Psychiatric Symptoms Stated Complaint: mhe Time Seen by Provider: 02/07/24 01:48 History of Present Illness: 39-year-old female with a history of sub stance abuse and depression. She states that she has been clean for 28 days. She says she presenting to the emergency department this morning because she is quite afraid that she will use, or that friends or family members will give her drugs. She essentially does not have a place to go. She says that she walked out of rehab last night, that her parents are in [place], and friends and family are probably high. She denies suicidal or homicidal ideation. Related Data Home Medications Medication Instructions Recorded Confirmed olanzapine 10 mg tablet (Zyprexa) 10 mg PO DAILY 02/01/24 02/01/24 propranolol 20 mg tablet 20 mg PO TID PRN 02/01/24 02/01/24 topiramate 50 mg tablet (Topamax) 50 mg PO DAILY 02/01/24 02/01/24 venlafaxine 37.5 mg 37.5 mg PO DAILY 02/01/24 02/01/24 capsule,extended release 24 hr (Effexor XR) Previous Rx's Medication Instructions Recorded acetaminophen 325 mg capsule 650 mg (2 x 325 mg) PO Q6H #30 caps 11/22/23 amoxicillin 875 mg-potassium 1 tab PO BID 7 days #14 tabs 02/01/24 clavulanate 125 mg tablet Allergies Allergy/AdvReac Type Severity Reaction Status Date / Time bupropion [From Wellbutrin] Allergy Severe caused Verified 02/01/24 11:09 throat swelling [facility] ED PFSH: Medical History Suspected 2019-nCoV infection Amphetamine use disorder, severe, in sustained remission, dependence Anterior epistaxis Nasal obstruction Acquired deviated nasal septum Daily headache Opioid use disorder Amphetamine use disorder, severe, dependence Vapes nicotine containing substance Psychiatric care Nicotine dependence, cigarettes, uncomplicated Sedative, hypnotic or anxiolytic dependence, in remission Opioid dependence, in remission Amphetamine dependence, in remission Generalized anxiety disorder Major depressive disorder, recurrent, in full remission Surgical History History of appendectomy Family History Other Generalized anxiety disorder Social History Smoking and tobacco/nicotine status: current every day tobacco/nicotine user cigarettes Packs smoked per day: 0.5 Years cigarettes smoked: 17 and e- cigarettes E-Cigarette Details: vaporizer device E-cig/vape details: all the time Quit status (tobacco/nicotine): considering quitting Second hand smoke exposure: Yes Physical Exam Const: COMMON NORMALS: no acute distress GENERAL APPEARANCE: cooperative; not ill appearing and not frail appearing HENMT: COMMON NORMALS: normocephalic, atraumatic and Normal external nose present HEAD & SCALP: normocephalic and atraumatic FACE & SINUS: normal facial exam and face symmetric NOSE: Normal external nose present Eye: COMMON NORMALS: Equal, round and reactive pupils present and EOMs intact bilaterally PUPIL: Yes Equal, round and reactive pupils present Neck/C-Spine: GENERAL: Yes trachea midline Chest: CHEST: Yes Symmetrical chest wall rise Resp: COMMON NORMALS: normal respiratory effort, No retractions, No use of accessory muscles and clear to auscultation bilaterally AUSCULTATION: clear to auscultation bilaterally Cardio: COMMON NORMALS: regular rate and regular rhythm RATE: regular rate RHYTHM: regular rhythm GI: COMMON NORMALS: Normal to inspection, nondistended, normoactive bowel sounds present Extremity: COMMON NORMALS: no pedal edema Neuro: AMNA COMA SCALE: document GCS findings [place] coma scale eye opening: Spontaneous Amna coma scale verbal response: Orientated Amna coma scale motor response: Obey commands [place] coma scale total score: 15 SENSORY EXAM: Yes extremities (intact) Psych: COMMON NORMALS: speech normal SPEECH: Yes normal speech Skin: COMMON NORMALS: no rashes or lesions noted GENERAL SKIN EXAM: no rashes or lesions noted Course Vital Signs: Vital signs: Vital Signs Temperature 97.9 F 02/07/24 01:37 Pulse Rate 89 02/07/24 02:58 Respiratory Rate 16 02/07/24 02:58 Blood Pressure 122/74 02/07/24 02:58 Pulse Oximetry 97 02/07/24 02:58 Oxygen Delivery Me thod Room Air 02/07/24 01:46 MDM - Psych Medical Decision Making Patient is mildly anxious, but otherwise has a normal exam. Vitals are normal. She is not homicidal or suicidal. We do not have any beds available at our neuropsychiatric facility. She will be discharged. Medically, she is stable. No radiology studies performed this visit Discharge Plan Discharge Patient Disposition: Home Clinical Impression: Generalized anxiety disorder Condition: Stable Prescriptions: No Action topiramate [Topamax] 50 mg tablet 50 mg PO DAILY venlafaxine [Effexor XR] 37.5 mg capsule,extended release 24hr 37.5 mg PO DAILY propranolol 20 mg tablet 20 mg PO TID PRN olanzapine [Zyprexa] 10 mg tablet 10 mg PO DAILY amoxicillin-pot clavulanate 875-125 mg tablet 1 tab PO BID 7 Days Qty: 14 0RF acetaminophen 325 mg capsule 650 mg PO Q6H Qty: 30 0RF Discharge Orders: Discharge ED (Routine); Ordered 02/07/24 Ordered By: Kenji Benítez Referrals: Jose Antonio García MD [Primary Care Provider] - 1-3 days Patient Instructions: Anxiety (ED), Opioid Safety, Pain Management Activity Restrictions/Additional Instructions: We currently do not have beds available in our neuropsychiatric facility. You will be allowed to rest on the premesis for the next few hours. Return for any problems. Coding Level of Care Code ED Metal Grader for Geoffrey Aguirre
[2024-02-07 02:58] VITALS: BP 122/74; PULSE 89; RESP 16; O2SAT 97
== END 2024-02-07 03:00 | disposition home or self-care (01) ==
PROVIDERS: Emergency Provider Emergency Medicine; PCP Internal Medicine
DX: F41.1 Generalized anxiety disorder (principal); F17.210 Nicotine dependence, cigarettes, uncomplicated; F17.290 Nicotine dependence, other tobacco product, uncomplicated
CPT/HCPCS: 99283

== ENCOUNTER 2024-03-28 16:53 | Inpatient (IN) | payer BC, MEDICAID, SELFPAY ==
[2024-03-28] VITALS (13 sets, daily range): BP systolic 99–135; BP diastolic 62–88; PULSE 55–88; RESP 14–21; TEMP 36.8; O2SAT 96–100
--- NOTE | 2024-03-28 17:08 | W.ED.PSYCHS ---
HPI - Psych General: Chief Complaint: Psychiatric Symptoms Stated Complaint: overdose Time Seen by Provider: 03/28/24 16:54 Source: patient and EMS Mode of arrival: EMS Limitations: no limitations History of Present Illness: 39-year-old female states she been having increasing depression. States she has been fighting with her boyfriend no longer wants to live. She states she took roughly 40 of her effexor an hour ago to try to kill herself. Patient is awake alert has no other complaints at this time. Associated symptoms: Reports depression and suicidal ideation Related Data Home Medications Medication Instructions Recorded Confirmed olanzapine 10 mg tablet (Zyprexa) 10 mg PO DAILY 02/01/24 02/01/24 propranolol 20 mg tablet 20 mg PO TID PRN 02/01/24 02/01/24 topiramate 50 mg tablet (Topamax) 50 mg PO DAILY 02/01/24 02/01/24 venlafaxine 37.5 mg 37.5 mg PO DAILY 02/01/24 02/01/24 capsule,extended release 24 hr (Effexor XR) Previous Rx's Medication Instructions Recorded acetaminophen 325 mg capsule 650 mg (2 x 325 mg) PO Q6H #30 caps 11/22/23 amoxicillin 875 mg-potassium 1 tab PO BID 7 days #14 tabs 02/01/24 clavulanate 125 mg tablet Allergies Allergy/AdvReac Type Severity Reaction Status Date / Time bupropion [From Wellbutrin] Allergy Severe caused Verified 02/01/24 11:09 throat swelling Review of Systems Const: Denies: fever(s), chills, body aches or change in appetite ENMT: Denies: throat pain or dental pain Card: Denies: chest pain Resp: Denies: dyspnea GI: Denies: abdominal pain, nausea, vomiting or diarrhea Musc: Denies: neck pain or back pain Skin/Breast: Denies: rash Neuro: Denies: headache(s) Psych: Reports: depression and suicidal ideation [facility] ED PFSH: Medical History Suspected 2019-nCoV infection Amphetamine use disorder, severe, in sustained remission, dependence Anterior epistaxis Nasal obstruction Acquired deviated nasal septum Daily headache Opioid use disorder Amphetamine use disorder, severe, dependence Vapes nicotine containing substance Psychiatric care Nicotine dependence, cigarettes, uncomplicated Sedative, hypnotic or anxiolytic dependence, in remission Opioid dependence, in remission Amphetamine dependence, in remission Generalized anxiety disorder Major depressive disorder, recurrent, in full remission Surgical History History of appendectomy Family History Other Generalized anxiety disorder Social History Smoking and tobacco/nicotine status: current every day tobacco/nicotine user cigarettes Packs smoked per day: 0.5 Years cigarettes smoked: 17 and e-cigarettes E-Cigarette Details: vaporizer device E-cig/vape details: all the time Quit status (tobacco/nicotine): considering quitting Second hand smoke exposure: Yes Physical Exam Const: COMMON NORMALS: patient oriented x3 HENMT: COMMON NORMALS: normocephalic and atraumatic HEAD & SCALP: normocephalic and atraumatic Eye: COMMON NORMALS: conjunctivae normal CONJUNCTIVA: Yes conjunctivae normal Neck/C-Spine: COMMON NORMALS: full ROM and supple Chest: COMMONS NORMALS: normal inspection of the chest Resp: COMMON NORMALS: normal respiratory effort, No retractions, No use of accessory muscles and clear to auscultation bilaterally AUSCULTATION: clear to auscultation bilaterally Cardio: COMMON NORMALS: regular rate, regular rhythm and No murmurs present (Cardio) RATE: regular rate RHYTHM: regular rhythm Extremity: COMMON NORMALS: normal to inspection and full ROM Neuro: COMMON NORMALS: patient oriented x3, moves all extremities and no focal motor deficits Psych: COMMON NORMALS: mental status grossly normal, Normal thought process present and cooperative THOUGHT PROCESS: Normal thought process present Skin: COMMON NORMALS: no rashes or lesions noted and no wounds GENERAL SKIN EXAM: no rashes or lesions noted Course Vital Signs: Vital signs: Vital Signs Temperature 98.3 F 03/28/24 16:55 Pulse Rate 55 L 03/28/24 18:15 Respiratory Rate 15 03/28/24 18:15 Blood Pressure 120/66 03/28/24 18:15 Pulse Oximetry 99 03/28/24 18:15 Oxygen Delivery Me thod Room Air 03/28/24 18:15 MDM - Psych Medical Decision Making Patient presents here with suicide attempt by overdose patient supposedly take 40 of her Effexor pill she has been stable here in the ER will admit to the ICU at this time until she is medically cleared I spoke to psychiatrist as well who is consulted. Medical Records I reviewed the patient's medical records. Lab Data I reviewed the patient's lab results. 03/28/24 17:46 03/28/24 17:46 Laboratory Results WBC 6.02 10^3/uL (3.29-11.43) 03/28/24 17:46 RBC 4.14 10^6/uL (3.85-5.65) 03/28/24 17:46 Hgb 12.70 g/dL (11.27-16.99) 03/28/24 17:46 Hct 39.9 % (36-47) 03/28/24 17:46 MCV 96.4 fl (85-98) 03/28/24 17:46 MCH 30.7 pg (27-33) 03/28/24 17:46 MCHC 31.8 g/dL (30-55) 03/28/24 17:46 RDW 13.6 % (12.1-15.1) 03/28/24 17:46 Plt Count 203 10^3/cmm (157-399) 03/28/24 17:46 MPV 11.0 fL (7.4-10.4) H 03/28/24 17:46 Neut % (Auto) 63.7 % 03/28/24 17:46 Lymph % (Auto) 27.2 % 03/28/24 17:46 [place] % (Auto) 7.8 % 03/28/24 17:46 Eos % (Auto) 0.8 % 03/28/24 17:46 Baso % (Auto) 0.2 % 03/28/24 17:46 Neut # (Auto) 3.83 10^3/uL (1.8-7.7) 03/28/24 17:46 Lymph # (Auto) 1.6 10^3/uL (0.8-4.8) 03/28/24 17:46 [place] # (Auto) 0.5 10^3/uL (0.2-0.9) 03/28/24 17:46 Eos # (Auto) 0.1 10^3/uL (0.0-0.8) 03/28/24 17:46 Baso # (Auto) 0.0 10^3/uL (0.0-0.1) 03/28/24 17:46 Nucleated RBC % (auto) 0 % 03/28/24 17:46 Nucleated RBCs # 0.0 /100WBC 03/28/24 17:46 Sodium 136 mmol/L (136-145) 03/28/24 17:46 Potassium 4.8 mmol/L (3.5-5.1) 03/28/24 17:46 Chloride 105 mmol/L (98-107) 03/28/24 17:46 Carbon Dioxide 23 mmol/L (22-29) 03/28/24 17:46 Anion Gap 12.8 (5-19) 03/28/24 17:46 BUN 20 mg/dL (6-20) 03/28/24 17:46 Creatinine 0.8 mg/dL (0.5-0.9) 03/28/24 17:46 GFR Calculation 80.3 mL/min (90-130) L 03/28/24 17:46 Glucose 93 mg/dL (65-115) 03/28/24 17:46 Calculated Osmolality 284 mOsm/kg (285-295) L 03/28/24 17:46 Calcium 9.0 mg/dL (8.5-10.5) 03/28/24 17:46 Total Bilirubin 0.6 mg/dL (0.15-1.2) 03/28/24 17:46 AST 27 U/L (0-32) 03/28/24 17:46 ALT 40 U/L (0-33) H 03/28/24 17:46 Alkaline Phosphatase 126 U/L (35-105) H 03/28/24 17:46 Total Protein 7.2 g/dL (6.6-8.7) 03/28/24 17:46 Albumin 4.3 g/dL (3.5-5.2) 03/28/24 17:46 Globulin 2.9 g/dL (1.3-4.6) 03/28/24 17:46 HCG, Qual Negative (Negative) 03/28/24 17:05 Salicylates < 0.3 mg/dL (3-10) L 03/28/24 17:46 Urine Opiates Screen Negative ng/mL (Negative) 03/28/24 17:05 Acetaminophen < 5.0 ug/mL (10-30) L 03/28/24 17:46 Ur Barbiturates Screen Negative ng/mL (Negative) 03/28/24 17:05 Ur Phencyclidine Scrn Negative ng/mL (Negative) 03/28/24 17:05 Ur Amphetamines Screen Positive ng/mL (Negative) H 03/28/24 17:05 U Benzodiazepines Scrn Positive ng/mL (Negative) H 03/28/24 17:05 Urine Cocaine Screen Negative ng/mL (Negative) 03/28/24 17:05 U Marijuana (THC) Screen Positive ng/mL (Negative) H 03/28/24 17:05 Ethyl Alcohol < 10 mg/dL (0-10) 03/28/24 17:46 All radiology interpretation(s) finalized by discharge EKG Data EKG 1: I personally reviewed and interpreted this EKG as follows: EKG interpretation date: 03/28/24 EKG interpretation time: 17:15 Interpretation: nsr hr [address] or t wave abnormalities qrs 86 qtc 410 Discharge Plan Discharge Patient Disposition: Admitted As Inpatient Clinical Impression: Suicidal ideation, Suicide attempt by drug overdose Condition: Stable Coding Level of Care Code ED Boat Assembler for Geoffrey Aguirre
--- NOTE | 2024-03-28 17:10 | PC.NURSE ---
poison control contacted. suggest to monitor at least 6-8 hours.
--- NOTE | 2024-03-28 17:15 | ECG_ITS ---
[facility] Test Date: 2024-03-28 Pat Name: Elana López Department: Room: Gender: Female Business Process Expert: : 1985 Requested By: Saul Ray Order Number: [id number] Venessa MD: Jan Gr M.D. Measurements Intervals [place] Rate: 64 P: 50 WI: 151 QRS: 31 QRSD: 86 T: 45 QT: 401 QTc: 414 Interpretive Statements SINUS RHYTHM Compared to ECG 11/22/2023 10:34:25 Sinus bradycardia no longer present Sinus arrhythmia no longer present Electronically Signed On 03-30-2024 01:01:55 CDT by Jan Gr M.D. [id number]
[2024-03-28 17:33] LABS: HCG Qualitative Urine. Negative (Negative)
[2024-03-28 17:38] LABS: Amphetamines Screen Urine Positive (Negative); Barbiturates Screen Urine Negative (Negative); Benzodiazepines Screen Urine Positive (Negative); Cocaine Screen Urine Negative (Negative); Opiate Screen Urine Negative (Negative); PCP Screen Urine Negative (Negative); THC Screen Urine Positive (Negative)
--- NOTE | 2024-03-28 17:50 | PC.NURSE ---
96 hour involuntary rights were read to patient. Patient verbalized understanding. She appeared to be upset at this time, but had no further questions. Copy of rights given to the patient.
[2024-03-28 17:57] LABS: Basophils % 0.2 %; Eosinophils # 0.1 10^3/uL (0.0-0.8); Eosinophils % 0.8 %; Hematocrit 39.9 % (36-47); Lymphocytes # 1.6 10^3/uL (0.8-4.8); Lymphocytes % 27.2 %; Mean Corpuscular HGB Conc 31.8 g/dL (30-55); Mean Corpuscular Hemoglobin 30.7 pg (27-33); Mean Corpuscular Volume 96.4 fl (85-98); Monocytes # 0.5 10^3/uL (0.2-0.9); Monocytes % 7.8 %; Neutrophils # 3.83 10^3/uL (1.8-7.7); Neutrophils % 63.7 %; Nucleated Red Blood Cells % 0 %; Platelet Count 203 10^3/cmm (157-399); Red Blood Count 4.14 10^6/uL (3.85-5.65); Red Cell Distribution Width 13.6 % (12.1-15.1); White Blood Count 6.02 10^3/uL (3.29-11.43)
--- NOTE | 2024-03-28 18:08 | PC.NURSE ---
Pt overdosed on Effexor 37.5 mg, dr made aware of this. Contacted poison control for the second time. Poison control stated that peak time is 5.5 hours after ingestion.
[2024-03-28 18:14] LABS: Alanine Aminotransferase 40 U/L (0-33); Albumin Level 4.3 g/dL (3.5-5.2); Alkaline Phosphatase 126 U/L (35-105); Blood Urea Nitrogen 20 mg/dL (6-20); Carbon Dioxide 23 mmol/L (22-29); Chloride 105 mmol/L (98-107); Creatinine Clr Calc Pharmacy 87.1961; Globulin 2.9 g/dL (1.3-4.6); Glomerular Filtration Rate 80.3 mL/min (90-130); Glucose 93 mg/dL (65-115); Osmolality Calculated 284 mOsm/kg (285-295); Sodium 136 mmol/L (136-145); Total Bilirubin 0.6 mg/dL (0.15-1.2); Total Protein 7.2 g/dL (6.6-8.7)
[2024-03-28 18:21] LABS: Acetaminophen < 5.0 ug/mL (10-30); Alcohol Level < 10 mg/dL (0-10); Anion Gap 12.8 (5-19); Aspartate Amino Transferase 27 U/L (0-32); Potassium 4.8 mmol/L (3.5-5.1); Salicylate < 0.3 mg/dL (3-10)
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
[2024-03-29] VITALS (15 sets, daily range): BP systolic 101–120; BP diastolic 26–79; PULSE 53–75; RESP 13–21; TEMP 36.8–37.1; O2SAT 97–98; BMI 36.7
--- NOTE | 2024-03-29 03:30 | ECG_ITS ---
[facility] Test Date: 2024-03-29 Pat Name: Elana López Department: Room: [facility] Gender: Female Sessions Clerk: : 1985 Requested By: Kaitlin Patel Order Number: [id number] Venessa MD: Jan Gr M.D. Measurements Intervals [place] Rate: 55 P: 55 [place]: 165 QRS: 47 QRSD: 94 T: 52 QT: 457 QTc: 439 Interpretive Statements SINUS BRADYCARDIA WITH SINUS ARRHYTHMIA Compared to ECG 03/28/2024 17:15:13 Sinus rhythm no longer present Electronically Signed On 03-31-2024 01:01:07 CDT by Jan Gr M.D. [email or web address]
[2024-03-29 04:22] LABS: Basophils % 0.3 %; Eosinophils % 1.1 %; Hematocrit 36.9 % (36-47); Lymphocytes # 1.7 10^3/uL (0.8-4.8); Lymphocytes % 45.5 %; Mean Corpuscular HGB Conc 31.4 g/dL (30-55); Mean Corpuscular Hemoglobin 30.8 pg (27-33); Mean Corpuscular Volume 97.9 fl (85-98); Mean Platelet Volume 10.9 fL (7.4-10.4); Monocytes # 0.4 10^3/uL (0.2-0.9); Monocytes % 10.6 %; Neutrophils # 1.55 10^3/uL (1.8-7.7); Neutrophils % 42.2 %; Nucleated Red Blood Cells % 0 %; Platelet Count 148 10^3/cmm (157-399); Red Blood Count 3.77 10^6/uL (3.85-5.65); Red Cell Distribution Width 13.6 % (12.1-15.1); White Blood Count 3.67 10^3/uL (3.29-11.43)
[2024-03-29 04:42] LABS: Alanine Aminotransferase 30 U/L (0-33); Albumin Level 3.6 g/dL (3.5-5.2); Alkaline Phosphatase 115 U/L (35-105); Aspartate Amino Transferase 20 U/L (0-32); Blood Urea Nitrogen 16 mg/dL (6-20); Calcium 8.2 mg/dL (8.5-10.5); Carbon Dioxide 24 mmol/L (22-29); Chloride 108 mmol/L (98-107); Creatinine Clr Calc Pharmacy 116.2615; Globulin 2.2 g/dL (1.3-4.6); Glomerular Filtration Rate 111.9 mL/min (90-130); Glucose 91 mg/dL (65-115); Osmolality Calculated 291 mOsm/kg (285-295); Phosphorus 3.4 mg/dL (2.5-4.5); Sodium 140 mmol/L (136-145); Total Bilirubin 0.9 mg/dL (0.15-1.2); Total Protein 5.8 g/dL (6.6-8.7)
[2024-03-29] MEDS: pantoprazole DR 40 mg Tablet PO (08:35)
--- NOTE | 2024-03-29 11:46 | W.PM.EVENTAC ---
Event Note Event Note: Patient eating breakfast No active complaints Nonfocal neuroexam GCS 15 No QTc prolongation Hemodynamically stable Transfer to n.p.u
[2024-03-29] MEDS: OLANZapine 5 mg ODT PO (15:19)
[2024-03-30 06:00] VITALS: BP 99/64; PULSE 51; RESP 17; O2SAT 98
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
--- NOTE | 2024-03-30 09:10 | PC.NURSE ---
IN BED RESTING. DENIES SI/HI AND AVH AT THIS TIME. RATES ANXIETY AND DEPRESSION 09/22. PT STATES IF IT GETS WORSE I WILL LET YOU KNOW SO I CAN TAKE SOMETHIG. DENIES PAIN. REPORTS SHE SLEPT FINE. PT STATES GOAL IS TO DO BETTER SO I CAN GO HOME. NOTED TO HAVE FLAT AFFECT. ALL QUESTIONS ANSWERED AND SUPPORT VOICED.
[2024-03-30] MEDS: hyDROXYzine 25 mg Capsule 50 MG PO (09:21)
[2024-03-30] MEDS: OLANZapine 10 mg TABLET PO (10:36)
[2024-03-30] MEDS: topiramate 25 mg Tablet 50 MG PO (10:36)
[2024-03-30 14:00] VITALS: BP 115/63; PULSE 57; RESP 15; TEMP 36.6; O2SAT 98
[2024-03-30 20:01] VITALS: BP 114/56; PULSE 66; RESP 15; TEMP 36.8; O2SAT 96
[2024-03-31 06:00] VITALS: BP 99/58; PULSE 56; RESP 15; TEMP 36.5; O2SAT 98
[2024-03-31] MEDS: OLANZapine 10 mg TABLET PO (09:21)
[2024-03-31] MEDS: topiramate 25 mg Tablet 50 MG PO (09:21)
[2024-03-31 14:00] VITALS: BP 109/70; PULSE 53; RESP 16; O2SAT 97
--- NOTE | 2024-03-31 15:23 | P.NPUPN_ITS ---
Subjective NPU 2 Subjective: Patient presented today reporting that she is doing okay and she feels ready to go home. We discussed the importance of us taking her time given the significance of her overdose attempt. She continues to seem to have limited insight into any of her challenges per staff report and direct observation. We discussed getting a EKG and the risk, benefits and alternatives of considering restarting her antidepressant and figuring out why the dose was at 37.5 of the Effexor XR to start off with. She understood and agreed to proceed as is documented in this note. She denies any side effects to her medications. Mental Status Exam 2 MSE Comments: This is an obese white female in hospital scrubs with limited grooming and eye contact.? No abnormal movements except for psychomotor retardation.? Somewhat cooperative with exam in mild distress.? Speech was slightly decreased rate and volume.? Mood described as okay I guess better than yesterday, affect subdued.? Thought process linear.? Thought content: Patient denied suicidal or homicidal ideation, there were no delusions reported or noted, she denied auditory or visual hallucinations. The patient reported feeling OK today. She denied any current thoughts of self-harm or harm to others. She denied any feelings of paranoia or hallucinations. She reported mood dysregulation due to her reported bipolar disorder. Attention and concentration were limited and memory appeared mostly reliable but none were formally tested.? She is alert and oriented x 3.? Insight, judgment and impulse control are limited versus impaired. Vitals/I&O/Wt Last Vital Signs Temp 97.7 F 03/31/24 06:00 Pulse 53 L 03/31/24 14:00 Resp 16 03/31/24 14:00 BP 109/70 03/31/24 14:00 Pulse Ox 97 03/31/24 14:00 O2 Del Method Room Air 03/31/24 06:00 Data NPU 03/29/24 03:49 03/29/24 03:49 A&P Assessment and plan (1) Major depressive disorder, recurrent: (2) Generalized anxiety disorder: (3) Opioid dependence, in remission: (4) Sedative hypnotic or anxiolytic dependence: (5) Amphetamine use disorder, severe, dependence: (6) Suicidal ideation: (7) Suicide attempt by drug overdose: (8) Obesity: (9) History of borderline personality disorder: (10) PTSD (post-traumatic stress disorder): Plan This is a 39-year-old white female with a significant history of mental health and addiction issues as well as active mental health and addiction issues with recent restarting of her medication at [facility] where she is currently doing outpatient services. The patient is currently on a 96-hour involuntary psychiatric hold due to a recent overdose. She has a history of psychiatric disorders, including depression, anxiety, PTSD, and borderline personality disorder. She also has a history of substance use disorder. She is currently in outpatient treatment four days a week and plans to continue this treatment. She endorsed mood dysregulation against the context of borderline personality disorder and had a recent conflict with her that led to impulsive behaviors including overtaking her Prozac. 1.? Continue current medication. Except for hold Prozac. Also need to get collateral information to understand if it was actually Prozac she took. She reports clarity that it was Effexor XR that she took. 2.? Continue every 15 minute checks for safety. 3.? Encourage individual, group and milieu therapies. 4. Encourage sober living treatment after discharge at the highest level care to which she is willing to commit. 5. We will get an EKG to just see where QTc is. 6. Patient continues to be resistant to identifying the level of dysfunction she finds herself and with her active addiction and recent suicide attempt. This is likely impacted significantly by her intellectual limitations. Involuntary Hold Information 2 96 Hour Hold: 96 Hour Involuntary Admission: Yes 96 Hour Hold Ending Date: 04/04/24 96 Hour Hold Ending Time: 00:01 Attestations NPU 2 Medical Necessity Statement*: Inpatient hospitalization is medically necessary and the clinically appropriate intervention at this time. We will monitor medication to make changes as indicated. Likely length of stay 3-5 days. Coding Level of Care Code Acute Code for [facility] Fwd Diagnoses Major depressive disorder, recurrent F33.9 Generalized anxiety disorder F41.1 Opioid dependence, in remission F11.21 Sedative hypnotic or anxiolytic dependence F13.20 Amphetamine use disorder, severe, dependence F15.20 Suicidal ideation R45.851 Suicide attempt by drug overdose T50.902A Obesity E66.9 History of borderline personality disorder Z86.59 PTSD (post-traumatic stress disorder) F43.10
[2024-03-31 20:50] VITALS: BP 92/52; PULSE 57; RESP 16; TEMP 36.9; O2SAT 98
[2024-04-01 06:00] VITALS: BP 136/77; PULSE 58; RESP 15; TEMP 36.9; O2SAT 98
[2024-04-01] MEDS: topiramate 25 mg Tablet 50 MG PO (08:44)
[2024-04-01] MEDS: OLANZapine 10 mg TABLET PO (08:45)
--- NOTE | 2024-04-01 09:13 | ECG_ITS ---
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
[2024-04-01 14:00] VITALS: BP 118/73; PULSE 69; RESP 16; TEMP 36.6; O2SAT 98
[2024-04-01] MEDS: hyDROXYzine 25 mg Capsule 50 MG PO (14:46)
--- NOTE | 2024-04-01 19:10 | P.NPUPN_ITS ---
Subjective NPU 2 Subjective: Patient presented today reporting that she is doing better and wants to go home. We talked about her overdose attempt and the importance of us getting her stabilized before discharge. She reports she is learned her lesson. We discussed the risks, benefits and alternatives of getting an EKG and then restarting Effexor at 75 mg and she understood and agreed to proceed as is documented in this note. She denied any side effects to her medications. Mental Status Exam 2 MSE Comments: This is an obese white female in hospital scrubs with limited grooming and eye contact.? No abnormal movements except for psychomotor retardation.? Somewhat cooperative with exam in mild distress.? Speech was slightly decreased rate and volume.? Mood described as okay I guess better than yesterday, affect subdued.? Thought process linear.? Thought content: Patient denied suicidal or homicidal ideation, there were no delusions reported or noted, she denied auditory or visual hallucinations. The patient reported feeling OK today. She denied any current thoughts of self-harm or harm to others. She denied any feelings of paranoia or hallucinations. She reported mood dysregulation due to her reported bipolar disorder. Attention and concentration were limited and memory appeared mostly reliable but none were formally tested.? She is alert and oriented x 3.? Insight, judgment and impulse control are limited versus impaired. Vitals/I&O/Wt Last Vital Signs Temp 97.9 F 04/01/24 14:00 Pulse 69 04/01/24 14:00 Resp 16 04/01/24 14:00 BP 118/73 04/01/24 14:00 Pulse Ox 98 04/01/24 14:00 O2 Del Method Room Air 04/01/24 14:00 Data NPU 03/29/24 03:49 03/29/24 03:49 A&P Assessment and plan (1) Major depressive disorder, recurrent: (2) Generalized anxiety disorder: (3) Opioid dependence, in remission: (4) Sedative hypnotic or anxiolytic dependence: (5) Amphetamine use disorder, severe, dependence: (6) Suicidal ideation: (7) Suicide attempt by drug overdose: (8) Obesity: (9) History of borderline personality disorder: (10) PTSD (post-traumatic stress disorder): Plan This is a 39-year-old white female with a significant history of mental health and addiction issues as well as active mental health and addiction issues with recent restarting of her medication at [facility] where she is currently doing outpatient services. The patient is currently on a 96-hour involuntary psychiatric hold due to a recent overdose. She has a history of psychiatric disorders, including depression, anxiety, PTSD, and borderline personality disorder. She also has a history of substance use disorder. She is currently in outpatient treatment four days a week and plans to continue this treatment. She endorsed mood dysregulation against the context of borderline personality disorder and had a recent conflict with her that led to impulsive behaviors including overtaking her Prozac. 1.? Continue current medication. She expresses clarity that she actually had no access to Prozac and actually took the Effexor XR but reports that she has learned her lesson. We discussed increasing the Effexor and restarting it at 75 mg tomorrow. 2.? Continue every 15 minute checks for safety. 3.? Encourage individual, group and milieu therapies. 4. Encourage sober living treatment after discharge at the highest level care to which she is willing to commit. 5. We will get an EKG to just see where QTc is. QTc was 390. 6. Patient continues to be resistant to identifying the level of dysfunction she finds herself and with her active addiction and recent suicide attempt. This is likely impacted significantly by her intellectual limitations. Involuntary Hold Information 2 96 Hour Hold: 96 Hour Involuntary Admission: Yes 96 Hour Hold Ending Date: 04/04/24 96 Hour Hold Ending Time: 00:01 Attestations NPU 2 Medical Necessity Statement*: Inpatient hospitalization is medically necessary and the clinically appropriate intervention at this time. We will monitor medication to make changes as indicated. Likely length of stay 3-4 days. Coding Level of Care Code Acute Code for [facility] Fwd Diagnoses Major depressive disorder, recurrent F33.9 Generalized anxiety disorder F41.1 Opioid dependence, in remission F11.21 Sedative hypnotic or anxiolytic dependence F13.20 Amphetamine use disorder, severe, dependence F15.20 Suicidal ideation R45.851 Suicide attempt by drug overdose T50.902A Obesity E66.9 History of borderline personality disorder Z86.59 PTSD (post-traumatic stress disorder) F43.10
[2024-04-01 19:32] VITALS: BP 105/64; PULSE 73; RESP 16; TEMP 36.8; O2SAT 97
[2024-04-02 06:00] VITALS: BP 117/76; PULSE 60; RESP 18; TEMP 36.4; O2SAT 98
[2024-04-02] MEDS: OLANZapine 10 mg TABLET PO (07:56)
[2024-04-02] MEDS: topiramate 25 mg Tablet 50 MG PO (07:56)
--- NOTE | 2024-04-02 08:54 | PC.NURSE ---
PT CURRENTLY DENIES SI/HI/AH/VH. PT CURRENTLY DENIES DEPRESSION. PT ENDORSES ANXIETY RATING IT A 5/10 ON A 0-10 SCALE WHERE 0 IS NONE AND 10 IS THE WORST POSSIBLE. PT STATES THAT SHE IS JUST ANXIOUS BECAUSE SHE WANTS TO GO HOME. PT WAS COOPERATIVE WITH ASSESSMENT AND MEDICATIONS. PT CURRENT NEEDS ARE MET AT THIS TIME.
[2024-04-02] MEDS: venlafaxine ER (24HR) 75 mg Capsule PO (09:33)
[2024-04-02 13:55] VITALS: BP 118/79; PULSE 81; RESP 17; TEMP 36.3; O2SAT 98
[2024-04-02] MEDS: acetaminophen 325 mg Tablet 650 MG PO (15:59)
--- NOTE | 2024-04-02 18:00 | W.PM.NPUPNS ---
Subjective NPU Subjective: Patient presented today reporting that she is doing okay. She continued to focus on possibility for discharge. We discussed the fact that with her significant overdose stabilizing her on her medications would be important and that we have begun that. She denied any issues with the restarting of Effexor XR 75 mg p.o. daily. She denied any side effects to the medications. Mental Status Exam MSE Comments: This is an obese white female in hospital scrubs with limited grooming and eye contact.? No abnormal movements except for psychomotor retardation.? Somewhat cooperative with exam in mild distress.? Speech was slightly decreased rate and volume.? Mood described as okay I guess better than yesterday, affect subdued.? Thought process linear.? Thought content: Patient denied suicidal or homicidal ideation, there were no delusions reported or noted, she denied auditory or visual hallucinations. The patient reported feeling OK today. She denied any current thoughts of self-harm or harm to others. She denied any feelings of paranoia or hallucinations. She reported mood dysregulation due to her reported bipolar disorder. Attention and concentration were limited and memory appeared mostly reliable but none were formally tested.? She is alert and oriented x 3.? Insight, judgment and impulse control are limited versus impaired. Intellectual ability impaired Vitals/I&O/Wt Last Vital Signs Temp 98.9 F 04/02/24 20:05 Pulse 79 04/02/24 20:05 Resp 18 04/02/24 20:05 BP 119/72 04/02/24 20:05 Pulse Ox 96 04/02/24 20:05 O2 Del Method Room Air 04/02/24 20:05 Data NPU 03/29/24 03:49 03/29/24 03:49 A&P Assessment and plan (1) Major depressive disorder, recurrent: (2) Generalized anxiety disorder: (3) Opioid dependence, in remission: (4) Sedative hypnotic or anxiolytic dependence: (5) Amphetamine use disorder, severe, dependence: (6) Suicidal ideation: (7) Suicide attempt by drug overdose: (8) Obesity: (9) History of borderline personality disorder: (10) PTSD (post-traumatic stress disorder): Plan This is a 39-year-old white female with a significant history of mental health and addiction issues as well as active mental health and addiction issues with recent restarting of her medication at [facility] where she is currently doing outpatient services. The patient is currently on a 96-hour involuntary psychiatric hold due to a recent overdose. She has a history of psychiatric disorders, including depression, anxiety, PTSD, and borderline personality disorder. She also has a history of substance use disorder. She is currently in outpatient treatment four days a week and plans to continue this treatment. She endorsed mood dysregulation against the context of borderline personality disorder and had a recent conflict with her that led to impulsive behaviors including overtaking her Prozac. 1.? Continue current medication. She expresses clarity that she actually had no access to Prozac and actually took the Effexor XR but reports that she has learned her lesson. Effexor XR increased to 75 mg p.o. daily. 2.? Continue every 15 minute checks for safety. 3.? Encourage individual, group and milieu therapies. 4. Encourage sober living treatment after discharge at the highest level care to which she is willing to commit. 5. We will get an EKG to just see where QTc is. QTc was 390 when obtained. Will move forward with increasing her SNRI treatment. 6. Patient continues to be resistant to identifying the level of dysfunction she finds herself and with her active addiction and recent suicide attempt. This is likely impacted significantly by her intellectual limitations. Involuntary Hold Information 96 Hour Hold: 96 Hour Involuntary Admission: Yes 96 Hour Hold Ending Date: 04/04/24 96 Hour Hold Ending Time: 00:01 Attestations U Medical Necessity Statement*: Inpatient hospitalization is medically necessary and the clinically appropriate intervention at this time. We will monitor medication to make changes as indicated. Likely length of stay 3-4 days. Coding Level of Care Code Acute Code for [facility] Fwd Diagnoses Major depressive disorder, recurrent F33.9 Generalized anxiety disorder F41.1 Opioid dependence, in remission F11.21 Sedative hypnotic or anxiolytic dependence F13.20 Amphetamine use disorder, severe, dependence F15.20 Suicidal ideation R45.851 Suicide attempt by drug overdose T50.902A Obesity E66.9 History of borderline personality disorder Z86.59 PTSD (post-traumatic stress disorder) F43.10
[2024-04-02 20:05] VITALS: BP 119/72; PULSE 79; RESP 18; TEMP 37.2; O2SAT 96
[2024-04-03 06:00] VITALS: BP 91/55; PULSE 73; RESP 17; TEMP 36.6; O2SAT 98
--- NOTE | 2024-04-03 07:58 | P.NPUPN_ITS ---
Subjective NPU 2 Subjective: Patient presented today reporting she is doing okay. She is focused on discharge but appears to be getting the message that a suicide attempt like she had requires that we do our due diligence and make sure that we have apparent her as best as we can for returning to outpatient services. She denies having any difficulties with the return of the Effexor XR and increasing it to 75 mg p.o. daily. We discussed the fact that Dr. Troy would be here tomorrow and the likelihood would be for discharge early this week. She denied any side effects of medication. Mental Status Exam 2 MSE Comments: This is an obese white female in hospital scrubs with limited grooming and eye contact.? No abnormal movements except for psychomotor retardation.? Somewhat cooperative with exam in mild distress.? Speech was slightly decreased rate and volume.? Mood described as okay I guess better than yesterday, affect subdued.? Thought process linear.? Thought content: Patient denied suicidal or homicidal ideation, there were no delusions reported or noted, she denied auditory or visual hallucinations. Attention and concentration were limited and memory appeared mostly reliable but none were formally tested.? She is alert and oriented x 3.? Insight, judgment and impulse control are limited versus impaired. Intellectual ability impaired Vitals/I&O/Wt Last Vital Signs Temp 97.8 F 04/03/24 06:00 Pulse 73 04/03/24 06:00 Resp 17 04/03/24 06:00 BP 91/55 04/03/24 06:00 Pulse Ox 98 04/03/24 06:00 O2 Del Method Room Air 04/02/24 20:05 Weight last 48 hrs Weight 96.615 kg Weight 96.615 kg Data NPU 03/29/24 03:49 03/29/24 03:49 A&P Assessment and plan (1) Major depressive disorder, recurrent: (2) Generalized anxiety disorder: (3) Opioid dependence, in remission: (4) Sedative hypnotic or anxiolytic dependence: (5) Amphetamine use disorder, severe, dependence: (6) Suicidal ideation: (7) Suicide attempt by drug overdose: (8) Obesity: (9) History of borderline personality disorder: (10) PTSD (post-traumatic stress disorder): Plan This is a 39-year-old white female with a significant history of mental health and addiction issues as well as active mental health and addiction issues with recent restarting of her medication at [facility] where she is currently doing outpatient services. The patient is currently on a 96-hour involuntary psychiatric hold due to a recent overdose. She has a history of psychiatric disorders, including depression, anxiety, PTSD, and borderline personality disorder. She also has a history of substance use disorder. She is currently in outpatient treatment four days a week and plans to continue this treatment. She endorsed mood dysregulation against the context of borderline personality disorder and had a recent conflict with her that led to impulsive behaviors including overtaking her Prozac. 1.? Continue current medication. She expresses clarity that she actually had no access to Prozac and actually took the Effexor XR but reports that she has learned her lesson. Effexor XR increased to 75 mg p.o. daily. 2.? Continue every 15 minute checks for safety. 3.? Encourage individual, group and milieu therapies. 4. Encourage sober living treatment after discharge at the highest level care to which she is willing to commit. 5. We will get an EKG to just see where QTc is. QTc was 390 when obtained. Will move forward with increasing her SNRI treatment. 6. Patient continues to be resistant to identifying the level of dysfunction she finds herself and with her active addiction and recent suicide attempt. This is likely impacted significantly by her intellectual limitations. Involuntary Hold Information 2 96 Hour Hold: 96 Hour Involuntary Admission: Yes 96 Hour Hold Ending Date: 04/04/24 96 Hour Hold Ending Time: 00:01 Attestations NPU 2 Medical Necessity Statement*: Inpatient hospitalization is medically necessary and the clinically appropriate intervention at this time. We will monitor medication to make changes as indicated. Likely length of stay 2-3 days. Coding Level of Care Code Acute Code for [facility] Fwd Diagnoses Major depressive disorder, recurrent F33.9 Generalized anxiety disorder F41.1 Opioid dependence, in remission F11.21 Sedative hypnotic or anxiolytic dependence F13.20 Amphetamine use disorder, severe, dependence F15.20 Suicidal ideation R45.851 Suicide attempt by drug overdose T50.902A Obesity E66.9 History of borderline personality disorder Z86.59 PTSD (post-traumatic stress disorder) F43.10
[2024-04-03] MEDS: OLANZapine 10 mg TABLET PO (08:08)
[2024-04-03] MEDS: topiramate 25 mg Tablet 50 MG PO (08:08)
[2024-04-03] MEDS: venlafaxine ER (24HR) 75 mg Capsule PO (08:08)
[2024-04-03 14:00] VITALS: BP 143/72; PULSE 76; RESP 18; TEMP 36.9; O2SAT 97
[2024-04-03 19:56] VITALS: BP 97/50; PULSE 60; RESP 20; TEMP 36.5; O2SAT 97
[2024-04-03] MEDS: trazodone 50 mg Tablet PO (20:18)
[2024-04-04] MEDS: trazodone 50 mg Tablet PO (02:34)
[2024-04-04 06:14] VITALS: BP 111/62; PULSE 61; RESP 19; TEMP 36.4; O2SAT 99
[2024-04-04] MEDS: venlafaxine ER (24HR) 75 mg Capsule PO (08:41)
[2024-04-04] MEDS: OLANZapine 10 mg TABLET PO (08:41)
[2024-04-04] MEDS: topiramate 25 mg Tablet 50 MG PO (08:41)
[2024-04-04] MEDS: acetaminophen 325 mg Tablet 650 MG PO (10:32)
[2024-04-04] MEDS: hyDROXYzine 25 mg Capsule 50 MG PO (13:59)
[2024-04-04 14:00] VITALS: BP 98/66; PULSE 78; RESP 18; TEMP 36.5; O2SAT 96
--- NOTE | 2024-04-04 14:00 | PC.NURSE ---
PRN VISTARIL 50 MG GIVEN PO PER PT C/O STATED ANXIETY
--- NOTE | 2024-04-04 19:10 | P.NPUPN_ITS ---
Subjective NPU 2 Subjective: 39-year-old female admitted with overdos e on Topamax and Effexor with suicidal ideation. The patient had reported that she was feeling better now. She had reported an extended history of over 20 years of addiction to methamphetamine and stated that she was receiving outpatient services at [facility]. She reported the longest period of sobriety off of methamphetamines was 3 years. She had reported that she had been sober for less than 2 months when she relapsed in the last month. She had reported having problems with depression as well. She had reported that her and her fianc? both were battling addiction and stated that she would be willing to receive any additional support regarding her methamphetamine abuse. She had reported that she wanted to go home soon. She did report at times having cravings for methamphetamine. Mental Status Exam 2 MSE Comments: This is an obese white female in hospital scrubs with limited grooming and eye contact.? No abnormal movements except for psychomotor retardation.? She was partially cooperative with exam in mild distress.? Speech was slightly decreased in rate and normal in volume.? Mood described as allright. Affect was flat. Thought process was linear.? Thought content: Patient denied suicidal or homicidal ideation, there were no delusions reported or noted, she denied auditory or visual hallucinations. Attention and concentration were limited and memory appeared mostly reliable but none were formally tested.? She is alert and oriented x 3.? Insight, judgment and impulse control are limited versus impaired. 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 Vitals/I&O/Wt Last Vital Signs Temp 97.7 F 04/04/24 14:00 Pulse 78 04/04/24 14:00 Resp 18 04/04/24 14:00 BP 98/66 04/04/24 14:00 Pulse Ox 96 04/04/24 14:00 O2 Del Method Room Air 04/04/24 06:14 04/04/24 04/04/24 04/04/24 06:59 14:59 22:59 Intake Total 480 / 480 Balance 480 / 480 Weight last 48 hrs Weight 96.615 kg Weight 96.615 kg Data NPU 03/29/24 03:49 03/29/24 03:49 A&P Assessment and plan (1) Major depressive disorder, recurrent: (2) Generalized anxiety disorder: (3) Opioid dependence, in remission: (4) Sedative hypnotic or anxiolytic dependence: (5) Amphetamine use disorder, severe, dependence: (6) Suicidal ideation: (7) Suicide attempt by drug overdose: (8) Obesity: (9) History of borderline personality disorder: (10) PTSD (post-traumatic stress disorder): Plan This is a 39-year-old white female with a significant history of mental health and addiction issues as well as active mental health and addiction issues with recent restarting of her medication at [facility] where she is currently doing outpatient services. The patient is currently on a 96-hour involuntary psychiatric hold due to a recent overdose. She has a history of psychiatric disorders, including depression, anxiety, PTSD, and borderline personality disorder. She also has a history of substance use disorder. She is currently in outpatient treatment four days a week and plans to continue this treatment. She endorsed mood dysregulation against the context of borderline personality disorder and had a recent conflict with her that led to impulsive behaviors including overtaking her Prozac. 1.? Continue Effexor XR 75mg in am. 2.? Continue every 15 minute checks for safety. 3.? Encourage individual, group and milieu therapies. 4. Encourage sober living treatment after discharge at the highest level care to which she is willing to commit. 5. We will get an EKG to just see where QTc is. QTc was 390 when obtained. Will move forward with increasing her SNRI treatment. 6. Patient continues to be resistant to identifying the level of dysfunction she finds herself and with her active addiction and recent suicide attempt. This is likely impacted significantly by her intellectual limitations. Recommend [employer] with digital application for treatment of methamphetamine dependence. Involuntary Hold Information 2 96 Hour Hold: 96 Hour Involuntary Admission: Yes 96 Hour Hold Ending Date: 04/04/24 96 Hour Hold Ending Time: 00:01 Attestations NPU 2 Medical Necessity Statement*: Inpatient hospitalization is medically necessary and the clinically appropriate intervention at this time. We will monitor medication to make changes as indicated. Likely length of stay 2-3 days. Coding Level of Care Code Acute Code for [facility] Fwd Diagnoses Major depressive disorder, recurrent F33.9 Generalized anxiety disorder F41.1 Opioid dependence, in remission F11.21 Sedative hypnotic or anxiolytic dependence F13.20 Amphetamine use disorder, severe, dependence F15.20 Suicidal ideation R45.851 Suicide attempt by drug overdose T50.902A Obesity E66.9 History of borderline personality disorder Z86.59 PTSD (post-traumatic stress disorder) F43.10
[2024-04-04 19:38] VITALS: BP 105/58; PULSE 69; RESP 15; TEMP 36.8; O2SAT 97
[2024-04-05 06:00] VITALS: BP 94/53; PULSE 63; RESP 15; TEMP 36.5; O2SAT 97
[2024-04-05] MEDS: hyDROXYzine 25 mg Capsule 50 MG PO (06:47)
[2024-04-05] MEDS: OLANZapine 10 mg TABLET PO (09:32)
[2024-04-05] MEDS: venlafaxine ER (24HR) 75 mg Capsule PO (09:33)
[2024-04-05] MEDS: topiramate 25 mg Tablet 50 MG PO (09:33)
[2024-04-05] MEDS: nicotine 21 mg Patch 1 PATCH TRANSDERMA (09:48)
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
[2024-04-05 14:13] VITALS: BP 94/53; PULSE 63; RESP 15; TEMP 36.5; O2SAT 97
== END 2024-04-05 14:31 | disposition home or self-care (01) | DRG 918 ==
LOC: ER 18:37 → ICU 20:28 → NP 03-29 12:44
PROVIDERS: Student in an Organized Health Care Education/Training Program; Admitting Provider Internal Medicine; Emergency Provider Emergency Medicine; PCP Internal Medicine; Visit Provider Psychiatry & Neurology Psychiatry
DX: T43.212A Poisoning by selective serotonin and norepinephrine reuptake inhibitors, intentional self-harm, initial encounter (principal); F15.20 Other stimulant dependence, uncomplicated; F33.9 Major depressive disorder, recurrent, unspecified; F13.20 Sedative, hypnotic or anxiolytic dependence, uncomplicated; E66.9 Obesity, unspecified; F43.12 Post-traumatic stress disorder, chronic; F41.1 Generalized anxiety disorder; Z86.011 Personal history of benign neoplasm of the brain; Z63.0 Problems in relationship with spouse or partner; F17.210 Nicotine dependence, cigarettes, uncomplicated; F17.290 Nicotine dependence, other tobacco product, uncomplicated; G47.33 Obstructive sleep apnea (adult) (pediatric); F11.21 Opioid dependence, in remission; Z68.37 Body mass index [BMI] 37.0-37.9, adult
CPT/HCPCS: 36415; 80053; 80306; 80307; 81025; 83735; 84100; 85025; 93005; 96376; 97150; 97165; 99285

== ENCOUNTER 2024-04-11 14:41 | Emergency (ER) | payer BC, MEDICAID, SELFPAY ==
[2024-04-11 15:12] VITALS: BP 138/87; PULSE 56; RESP 16; TEMP 36.8; O2SAT 99; BMI 31.8
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
[2024-04-11 18:23] VITALS: BP 145/89; PULSE 58; RESP 16; O2SAT 99
--- NOTE | 2024-04-12 08:11 | DCPLANNER ---
Referral for [facility] sent to [facility] in [facility]
== END 2024-04-11 18:24 | disposition home or self-care (01) ==
PROVIDERS: Emergency Provider Physician Assistant; PCP Internal Medicine
DX: S02.2XXA Fracture of nasal bones, initial encounter for closed fracture (principal); Y04.2XXA Assault by strike against or bumped into by another person, initial encounter
CPT/HCPCS: 70450; 70486; 72125; 99284

== ENCOUNTER 2025-04-12 09:48 | Emergency (ER) | payer BC, MEDICAID, SELFPAY ==
[2025-04-12 09:52] VITALS: BP 145/98; PULSE 98; RESP 20; TEMP 36.8; O2SAT 98; BMI 35.4
[2025-04-12 09:57] VITALS: BP 142/91; PULSE 65; RESP 20; O2SAT 98
--- OUTSIDE RECORDS SUMMARY | 2025-04-12 10:14 | XMS_ITS | Encounter Summary ---
Author Organization [facility] Address [address] [place] [address] Care Team Providers Care Chief Ii Dispatcher Name Role Phone Unavailable Primary Care Provider Unavailabl e Encounter Details Date Type Department Care Team (Latest Contact Info) Description 06/30/2024 Results Follow-Up [facility] G[facility] [place] [address] [id number] Dalton Paez, SUPER[employer] [address] [id number] [place] [employer] Social History Tobacco Use Types Packs/Day Years Used Date Smoking Tobacco: Every Day Cigarettes Alcohol Use Standard Drinks/Week Comments Not Currently 0 (1 standard drink = 0.6 oz pur e alcohol) Feeling Safe Answer Date Recorded Are you in a relationship wi th someone who hurts you emotionally and/or physically? No 05/16/2024 Comments No Sex and Gender Information Value Date Recorded Sex Assigned at Not on file Legal Sex Female 10:09 AM ADDICTION SOCIAL WORKER Gender Identity Not on file Sexual Orientation Not on file documented as of this encounter Miscellaneous Notes * Result Encounter Note - Altaf Bolden LPN - 07/01/2024 2:20 PM CST I ordered labs and mri stat [employer]ION SOCIAL WORKER documented in this encounter Plan of Treatment Not on file documented as of this encounter Visit Diagnoses Not on filedocumented in this encounter
--- OUTSIDE RECORDS SUMMARY | 2025-04-12 10:14 | XMS_ITS | Clinical Summary ---
Author Organization [facility] [address] [place] [address] [address] [place] [address] Care Team Providers Care Facilities Engineer Name Role Phone Unavailable Primary Care Provider Unavailabl e Allergies Active Allergy Reactions Criticality Noted Date Comments Bupropion Hcl Anaphylaxis High 05/16/2024 Medications ondansetron (ZOFRAN ODT) 4 mg Tablet, Rapid Dissolve Take 1 Tablet (4 mg) by mouth every 8 hours as needed for Nausea. Dissolve tablet on top of tongue, then swallow with saliva. 10 Tablet 05/16/2024 Active FLUoxetine (PROzac) 20 mg capsule Take 1 Capsule by mouth daily. 02/18/2024 Active OLANZapine (ZyPREXA) 10 mg tablet TAKE ONE TABLET BY MOUTH AT night 04/05/2024 Active propranoloL (INDERAL) 20 mg tablet 04/28/2024 Active topiramate (TOPAMAX) 50 mg tablet 03/17/2024 Active venlafaxine (EFFEXOR XR) 75 mg Extended Release 24 hour capsule TAKE ONE CAPSULE BY MOUTH DAILY for SEVEN DAYS 04/05/2024 Active Active Problems No known active problems Encounters Date Type Department Care Team Description 03/21/2025 External Device Data [facility]CTION Provider, Abstract 03/14/2025 External Device Data [facility] Provider, Abstract 03/14/2025 External Device Data [facility] Provider, Abstract 03/14/2025 External Device Data [facility] Provider, Abstract 02/14/2025 External Device Data [facility] Provider, Abstract 02/01/2025 External Device Data [facility] Provider, Abstract 01/24/2025 External Device Data [facility] Provider, Abstract 01/17/2025 External Device Data [facility]CTION Provider, Abstract from Last 3 Months Social History Tobacco Use Types Packs/Day Years Used Date Smoking Tobacco: Every Day Cigarettes Tobacco Cessation:Ready to Q uit: Not Asked; Counseling Given: Not Answered Alcohol Use Standard Drinks/Week Comments Not Currently 0 (1 standard drink = 0.6 oz pur e alcohol) Feeling Safe Answer Date Recorded Are you in a relationship wi th someone who hurts you emotionally and/or physically? No 08/08/2024 Comments No Sex and Gender Information Value Date Recorded Sex Assigned at Not on file Legal Sex Female 10:09 AM BUTT SAWYER Gender Identity Not on file Sexual Orientation Not on file Last Filed Vital Signs Vital Sign Reading Time Taken Comments Blood Pressure 114/74 08/08/2024 2:25 PM BUTT SAWYER Pulse 60 08/08/2024 2:25 PM BUTT SAWYER Temperature 36.5 C (97.7 F) 08/08/2024 3:30 PM BUTT SAWYER Respiratory Rate 18 08/08/2024 5:15 PM BUTT SAWYER Oxygen Saturation 100% 08/08/2024 2:25 PM BUTT SAWYER Inhaled Oxygen Concentration - - Weight 104.3 kg (230 lb) 08/08/2024 12:33 PM BUTT SAWYER Height 160 cm (5' 3 ) 08/08/2024 12:33 PM BUTT SAWYER Body Mass Index 40.74 08/08/2024 12:33 PM BUTT SAWYER Plan of Treatment Health Maintenance Due Date Last Done Comments Pre-Diabetes and Diabetes Screening 1986 DTAP/TDAP/TD VACCINES (2 - Tdap) 01/14/2002 01/14/20 02 HPV/Cotest (21-29) 2007 HPV VACCINES (1 - 3-dose SCD M series) 2013 CERVICAL CANCER SCREENING 01/12/2016 HPV/Cotest (30-65) 01/12/2016 PAP SMEAR 01/12/2016 INFLUENZA VACCINE (#1) 2025 COVID-19 Vaccine (3 - 2024-2 6 season) 2025 04/05/2021, 03/04/2021 HEPATITIS B VACCINES Completed 06/21/1999, 11/01/1998, 09/27/1998 [facility]
[2025-04-12 11:07] LABS: Hematocrit 40.3 % (36-47); Hemoglobin 13.10 g/dL (11.27-16.99); Mean Corpuscular HGB Conc 32.5 g/dL (30-55); Mean Corpuscular Hemoglobin 30.7 pg (27-33); Mean Corpuscular Volume 94.4 fl (85-98); Nucleated Red Blood Cells % 0 %; Platelet Count 253 10^3/cmm (157-399); Red Blood Count 4.27 10^6/uL (3.85-5.65); White Blood Count 5.41 10^3/uL (3.29-11.43)
--- NOTE | 2025-04-12 11:21 | W.ED.NAVMDI ---
HPI - Nausea/Vomiting/Diarrhea General: Chief complaint: Nausea/Vomiting/Diarrhea Stated complaint: Blood in Urine N/V Time Seen by Provider: 04/12/25 11:21 History of Present Illness: 40-year-old female with a history of borderline personality disorder, marijuana dependence, PTSD, depression, hepatitis C, and obesity who presents to the emergency room with nausea and vomiting. She said she has been dry heaving for a few days since she smoked a different kind of marijuana. No focal abdominal pain. No diarrhea. She says she has been anything but dry heaves recently. No fevers. No altered mental status. No focal motor deficits. Related Data Home Medications ?Medication ?Instructions ?Recorded ?Confirmed propranolol 20 mg tablet 20 mg PO TID PRN Headache 02/01/24 08/02/24 topiramate 50 mg tablet (Topamax) 50 mg PO DAILY 02/01/24 08/02/24 venlafaxine 37.5 mg 37.5 mg PO DAILY 02/01/24 08/02/24 capsule,extended release 24 hr (Effexor XR) Previous Rx's ?Medication ?Instructions ?Recorded olanzapine 10 mg tablet (Zyprexa) 10 mg PO .at night 30 days #30 tabs 04/05/24 venlafaxine 150 mg 150 mg PO QAM #30 caps 04/05/24 capsule,extended release 24 hr (Effexor XR) venlafaxine 75 mg capsule,extended 75 mg PO DAILY 7 days #7 caps 04/05/24 release 24 hr amoxicillin 875 mg-potassium 1 tab PO BID 10 days #20 tabs 08/02/24 clavulanate 125 mg tablet diclofenac sodium 50 mg 50 mg PO BID pain #14 tabs 08/02/24 tablet,delayed release cephalexin 500 mg capsule 500 mg PO BID 5 days #10 caps 04/12/25 ondansetron 8 mg disintegrating 8 mg PO Q6H #14 tabs 04/12/25 tablet promethazine 25 mg rectal 25 mg MS Q6H PRN nausea and 04/12/25 suppository vomiting #12 ea Allergies Allergy/AdvReac Type Severity Reaction Status Date / Time bupropion (From Wellbutrin) Allergy Severe caused Verified 08/02/24 09:25 throat swelling Review of Systems Narrative: Constitutional symptoms: Negative except as documented in HPI. Skin symptoms: Negative except as documented in HPI. Eye symptoms: Negative except as documented in HPI. ENMT symptoms: Negative except as documented in HPI. Respiratory symptoms: Negative except as documented in HPI. Cardiovascular symptoms: Negative except as documented in HPI. Gastrointestinal symptoms: Negative except as documented in HPI. Genitourinary symptoms: Negative except as documented in HPI. Musculoskeletal symptoms: Negative except as documented in HPI. Neurologic symptoms: Negative except as documented in HPI. Psychiatric symptoms: Negative except as documented in HPI. Endocrine symptoms: Negative except as documented in HPI. PFSH ED PFSH: Medical History (Updated 04/12/25 @ 12:27 by Mariya Garcia MD) History of borderline personality disorder Sedative hypnotic or anxiolytic dependence Suspected 2019-nCoV infection Amphetamine use disorder, severe, in sustained remission, dependence Anterior epistaxis Nasal obstruction Acquired deviated nasal septum Daily headache Opioid use disorder Amphetamine use disorder, severe, dependence Vapes nicotine containing substance Nicotine dependence, cigarettes, uncomplicated Sedative, hypnotic or anxiolytic dependence, in remission Opioid dependence, in remission Amphetamine dependence, in remission Generalized anxiety disorder Major depressive disorder, recurrent, in full remission Surgical History History of appendectomy Family History Other Generalized anxiety disorder Social History Smoking and tobacco/nicotine status: current every day tobacco/nicotine user cigarettes Packs smoked per day: 0.5 Years cigarettes smoked: 17 and e-cigarettes E-Cigarette Details: vaporizer device E-cig/vape details: all the time Quit status (tobacco/nicotine): considering quitting Second hand smoke exposure: Yes Physical Exam Narrative: EXAM NARRATIVE: General: Alert, no acute distress. Skin: Warm, dry. Head: Normocephalic, atraumatic. Neck: Supple, trachea midline. Eye: Extraocular movements are intact. Ears, nose, mouth and throat: Tacky oral mucosa Cardiovascular: Regular, Normal peripheral perfusion. Respiratory: Lungs are clear to auscultation, respirations are non-labored, breath sounds are equal, Symmetrical chest wall expansion. Gastrointestinal: Soft, Nontender, Non distended Musculoskeletal: Normal ROM, no deformity. Neurological: Alert and oriented, No focal neurological deficit observed. Psychiatric: Cooperative, appropriate mood & affect. Course Vital Signs: Vital signs: Vital Signs Temperature 98.2 F 04/12/25 09:52 Pulse Rate 65 04/12/25 09:57 Respiratory Rate 20 H 04/12/25 09:57 Blood Pressure 142/91 04/12/25 09:57 Pulse Oximetry 98 04/12/25 09:57 Oxygen Delivery Me thod Room Air 04/12/25 09:57 MDM - Nausea/Vomiting/Diarrhea Medical Decision Making Medical decision making: Patient's reason for coming to the emergency room: Dry heaving Social determinants: Patient is unemployed. I reviewed the patient's medical record. 40-year-old female with a history of borderline personality disorder, marijuana dependence, PTSD, depression, hepatitis C, and obesity I reviewed the patient's current home meds Patient is on Topamax, propranolol and venlafaxine. Alternate historians: None Differential diagnosis for this patient with nausea and vomiting including but not limited to and based on the above HPI, review of systems and physical exam: Urinary tract infection. Appendicitis. Cholecystitis. Colitis. small bowel obstruction. crohn's flare. pancreatitis. gastritis. peptic ulcer. cyclic vomiting. Viral illness. Influenza. COVID. Orders placed to evaluate differential diagnosis based on the above differential, HPI and physical exam Lab Review: Laboratory results were reviewed and interpreted by myself the emergency room physician. No leukocytosis. No anemia. No renal failure. Liver enzymes are normal. Lipase is negative. Urinalysis has only 0-5 whites but she has 2+ bacteria so feel them obligated to treat. Assessment of risk: Level of risk: Low Hospitalization considerations: If patient would not have responded to antiemetics and continued vomiting she likely would have had to been admitted. Reexamination: Patient is now tolerating Gatorade. Patient remained stable. No increased work of breathing. No altered mental status. No focal motor deficits. Studies considered but not done: Often times CT of the abdomen is helpful in patients with vomiting. However this patient has no focal pain and no leukocytosis. So I decided not to do a CT scan today Assessment and plan: Hyperemesis Cannabis use Dehydration Urinary tract infection - Discharged home - Discussed plan with patient. Answered any questions. - Evaluation and treatment of this problem were appropriate in the emergency setting. Lab Data 04/12/25 10:59 04/12/25 10:59 Laboratory Results WBC 5.41 10^3/uL (3.29-11.43) 04/12/25 10:59 RBC 4.27 10^6/uL (3.85-5.65) 04/12/25 10:59 Hgb 13.10 g/dL (11.27-16.99) 04/12/25 10:59 Hct 40.3 % (36-47) 04/12/25 10:59 MCV 94.4 fl (85-98) 04/12/25 10:59 MCH 30.7 pg (27-33) 04/12/25 10:59 MCHC 32.5 g/dL (30-55) 04/12/25 10:59 RDW 13.7 % (12.1-15.1) 04/12/25 10:59 Plt Count 253 10^3/cmm (157-399) 04/12/25 10:59 MPV 9.5 fL (7.4-10.4) 04/12/25 10:59 Neut % (Auto) 67.2 % 04/12/25 10:59 Lymph % (Auto) 25.0 % 04/12/25 10:59 [place] % (Auto) 7.0 % 04/12/25 10:59 Eos % (Auto) 0.0 % 04/12/25 10:59 Baso % (Auto) 0.2 % 04/12/25 10:59 Neut # (Auto) 3.64 10^3/uL (1.8-7.7) 04/12/25 10:59 Lymph # (Auto) 1.4 10^3/uL (0.8-4.8) 04/12/25 10:59 [place] # (Auto) 0.4 10^3/uL (0.2-0.9) 04/12/25 10:59 Eos # (Auto) 0.0 10^3/uL (0.0-0.8) 04/12/25 10:59 Baso # (Auto) 0.0 10^3/uL (0.0-0.1) 04/12/25 10:59 Nucleated RBC % (auto) 0 % 04/12/25 10:59 Nucleated RBCs # 0.0 /100WBC 04/12/25 10:59 Sodium 136 mmol/L (136-145) 04/12/25 10:59 Potassium 3.8 mmol/L (3.5-5.1) 04/12/25 10:59 Chloride 100 mmol/L (98-107) 04/12/25 10:59 Carbon Dioxide 24 mmol/L (22-29) 04/12/25 10:59 Anion Gap 15.8 (5-19) 04/12/25 10:59 BUN 13 mg/dL (6-20) 04/12/25 10:59 Creatinine 0.7 mg/dL (0.5-0.9) 04/12/25 10:59 GFR Calculation 93.2 mL/min (90-130) 04/12/25 10:59 Glucose 99 mg/dL (65-115) 04/12/25 10:59 Calculated Osmolality 282 mOsm/kg (285-295) L 04/12/25 10:59 Calcium 9.1 mg/dL (8.5-10.5) 04/12/25 10:59 Total Bilirubin 1.0 mg/dL (0.15-1.2) 04/12/25 10:59 AST 21 U/L (0-32) 04/12/25 10:59 ALT 29 U/L (0-33) 04/12/25 10:59 Alkaline Phosphatase 176 U/L (35-105) H 04/12/25 10:59 Total Protein 7.6 g/dL (6.6-8.7) 04/12/25 10:59 Albumin 4.5 g/dL (3.5-5.2) 04/12/25 10:59 Globulin 3.1 g/dL (1.3-4.6) 04/12/25 10:59 Lipase 32 U/L (13-60) 04/12/25 10:59 HCG, Qual Negative (Negative) 04/12/25 10:59 Urine Color Yellow (Yellow) 04/12/25 11:40 Urine Appearance Cloudy (CLEAR) A 04/12/25 11:40 Urine pH 5.0 (5-7) 04/12/25 11:40 Ur Specific [place] 1.025 (1.005-1.030) 04/12/25 11:40 Urine Protein Negative (Negative) 04/12/25 11:40 Urine Glucose (UA) Negative (Normal) 04/12/25 11:40 Urine Ketones 1+ (Negative) H 04/12/25 11:40 Urine Blood Negative (Negative) 04/12/25 11:40 Urine Nitrate Negative (Negative) 04/12/25 11:40 Urine Bilirubin Negative (Negative) 04/12/25 11:40 Urine Urobilinogen 1.0 mg/dL (Negative) 04/12/25 11:40 Ur Leukocyte Esterase Negative (Negative) 04/12/25 11:40 Urine RBC 3-5 /hpf (0-2) 04/12/25 11:40 Urine WBC 0-5 /hpf (0-5) 04/12/25 11:40 Ur Squamous Epith Cells 6-10 /hpf (0-5) 04/12/25 11:40 Amorphous Sediment Not Reportable 04/12/25 11:40 Urine Bacteria 2+ /hpf (NONE) H 04/12/25 11:40 Hyaline Casts 1.65 /lpf 04/12/25 11:40 No radiology studies performed this visit Discharge Plan Discharge Patient Disposition: Home Clinical Impression: Cannabis hyperemesis syndrome, Dehydration, Urinary tract infection Condition: Stable Prescriptions: New promethazine 25 mg suppository 25 mg MS Q6H PRN (Reason: nausea and vomiting) Qty: 12 0RF ondansetron 8 mg tablet,disintegrating 8 mg PO Q6H Qty: 14 0RF Rx Instructions: Take 1/2-1 tab every 6 hours as needed for nausea and vomiting cephalexin 500 mg capsule 500 mg PO BID 5 Days Qty: 10 0RF No Action diclofenac sodium 50 mg tablet,delayed release (DR/EC) 50 mg PO BID Qty: 14 0RF Rx Instructions: start this medicine on Thursday amoxicillin-pot clavulanate 875-125 mg tablet 1 tab PO BID 10 Days Qty: 20 0RF topiramate [Topamax] 50 mg tablet 50 mg PO DAILY venlafaxine [Effexor XR] 37.5 mg capsule,extended release 24hr 37.5 mg PO DAILY propranolol 20 mg tablet 20 mg PO TID PRN (Reason: Headache) venlafaxine 75 mg Capsule,Extended Release 24hr 75 mg PO DAILY 7 Days Qty: 7 1RF olanzapine [Zyprexa] 10 mg tablet 10 mg PO .at night 30 Days Qty: 30 1RF venlafaxine [Effexor XR] 150 mg capsule,extended release 24hr 150 mg PO QAM Qty: 30 0RF Rx Instructions: Begin on 04/12/24 Discharge Orders: Discharge ED (Routine); Ordered 04/12/25 Ordered By: Mariya Garcia Referrals: Jose Antonio García MD [Primary Care Provider, Internal Medicine] Discharge Diet: Advance as tolerated Discharge Activity: Increase activity as tolerated Patient Instructions: Acute Nausea and Vomiting (ED), Opioid Safety, Pain Management, Patient Portal & Ryan Instructions Activity Restrictions/Additional Instructions: Thank you for choosing [facility] for your healthcare needs today. You have been screened and evaluated and felt safe for discharge. Health conditions do change or evolve sometimes and as such it is important that you follow up with your Primary Doctor to be re checked, 3-5 days is a general good time frame for follow up. You are always welcome to return to the ED for re assessment if your symptoms are worsening or you have new concerns Print Language: Romansh Coding Level of Care Code ED Liner Checker for Geoffrey Aguirre
[2025-04-12 11:25] LABS: Alanine Aminotransferase 29 U/L (0-33); Albumin Level 4.5 g/dL (3.5-5.2); Alkaline Phosphatase 176 U/L (35-105); Anion Gap 15.8 (5-19); Aspartate Amino Transferase 21 U/L (0-32); Blood Urea Nitrogen 13 mg/dL (6-20); Calcium 9.1 mg/dL (8.5-10.5); Carbon Dioxide 24 mmol/L (22-29); Chloride 100 mmol/L (98-107); Creatinine Clr Calc Pharmacy 115.3647; Globulin 3.1 g/dL (1.3-4.6); Glucose 99 mg/dL (65-115); Osmolality Calculated 282 mOsm/kg (285-295); Potassium 3.8 mmol/L (3.5-5.1); Sodium 136 mmol/L (136-145); Total Protein 7.6 g/dL (6.6-8.7)
[2025-04-12 11:34] LABS: HCG, Serum Qual Negative (Negative)
[2025-04-12 11:57] LABS: Lipase 32 U/L (13-60)
[2025-04-12] MEDS: ondansetron 2 mg/ML SDV 2 mL 4 MG IVP (11:58)
[2025-04-12 12:23] LABS: Glucose Urine UA Negative (Normal); Nitrate Urine Negative (Negative); Specific Gravity, Urine 1.025 (1.005-1.030)
[2025-04-12 12:25] LABS: Add Urine Microscopic? YES
== END 2025-04-12 12:56 | disposition home or self-care (01) ==
PROVIDERS: Family Medicine; Emergency Provider Emergency Medicine; PCP Internal Medicine
DX: R11.16 Cannabis hyperemesis syndrome (principal); E86.0 Dehydration; N39.0 Urinary tract infection, site not specified; F17.210 Nicotine dependence, cigarettes, uncomplicated
CPT/HCPCS: 36415; 80053; 81001; 83690; 84703; 85025; 96374; 99284; J2405; J7030

== ENCOUNTER 2025-05-11 08:45 | Emergency (ER) | payer BC, MEDICAID, SELFPAY ==
[2025-05-11 08:47] VITALS: BP 126/69; PULSE 120; RESP 16; TEMP 36.3; O2SAT 100; BMI 38.7
--- OUTSIDE RECORDS SUMMARY | 2025-05-11 08:49 | XMS_ITS | Clinical Summary ---
Author Organization [address] Address [address] [facility] [place] [address] Care Team Providers Care Tab Cutter Name Role Phone Unavailable Primary Care Provider [...] Encounters Date Type Department Care Team Description 05/02/2025 External Device Data [facility] ABSTRACTION Provider, Abstract 05/02/2025 External Device Data [facility] ABSTRACTION Provider, Abstract 05/02/2025 External Device Data [facility] ABSTRACTION Provider, Abstract 04/18/2025 External Device Data [facility] ABSTRACTION Provider, Abstract 04/12/2025 External Device Data [facility] ABSTRACTION Provider, Abstract 04/12/2025 External Device Data [facility] ABSTRACTION Provider, Abstract 03/21/2025 External Device Data [facility] ABSTRACTION Provider, [...] on file 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 Gender Identity Not on file Sexual Orientation Not on file Last Filed Vital Signs Vital Sign Reading Time Taken Comments Blood Pressure 114/74 08/08/2024 2:25 PM ENERGY EFFICIENCY FINANCE MANAGER Pulse 60 08/08/2024 2:25 PM ENERGY EFFICIENCY FINANCE MANAGER Temperature 36.5 C (97.7 F) 08/08/2024 3:30 PM ENERGY EFFICIENCY FINANCE MANAGER Respiratory Rate 18 08/08/2024 5:15 PM ENERGY EFFICIENCY FINANCE MANAGER Oxygen Saturation 100% 08/08/2024 2:25 PM ENERGY EFFICIENCY FINANCE MANAGER Inhaled Oxygen Concentration - - Weight 104.3 kg (230 lb) 08/08/2024 12:33 PM ENERGY EFFICIENCY FINANCE MANAGER Height 160 cm (5' 3 ) 08/08/2024 12:33 PM ENERGY EFFICIENCY FINANCE MANAGER Body Mass Index 40.74 08/08/2024 12:33 PM ENERGY EFFICIENCY FINANCE MANAGER Plan of Treatment Health Maintenance Due Date [...] Completed 06/21/1999, 11/01/1998, 09/27/1998 Insurance BCBS EXCHANGE BCBS [facility] MEDICAID
--- OUTSIDE RECORDS SUMMARY | 2025-05-11 08:49 | XMS_ITS | Encounter Summary ---
Author Organization [facility] Address 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
--- NOTE | 2025-05-11 08:51 | W.ED.SKABFB ---
HPI - Skin/Abscess/Foreign Bdy General: Chief complaint: Skin/Abscess/Foreign Body Stated complaint: Rash Eyes swelling and Itchy Time Seen by Provider: 05/11/25 08:47 Source: patient Mode of arrival: ambulatory Limitations: no limitations History of Present Illness: 40-year-old female states that she has had a full body rash over the last 2 days states been very pruritic in nature she is seen 2 days ago was on prednisone but states the rashes worsen and now has itching and swelling around her eyes. She denies any throat swelling denies any shortness of breath. She denies any fevers. Related Data Home Medications ?Medication ?Instructions ?Recorded ?Confirmed propranolol 20 mg tablet 20 mg PO TID PRN Headache 02/01/24 05/11/25 topiramate 50 mg tablet (Topamax) 50 mg PO DAILY 02/01/24 05/11/25 venlafaxine 37.5 mg 37.5 mg PO DAILY 02/01/24 05/11/25 capsule,extended release 24 hr (Effexor XR) olanzapine 20 mg tablet 20 mg PO BEDTIME 05/11/25 05/11/25 venlafaxine 75 mg capsule,extended 75 mg PO QAM 05/11/25 05/11/25 release 24 hr Previous Rx's ?Medication ?Instructions ?Recorded diclofenac sodium 50 mg 50 mg PO BID pain #14 tabs 08/02/24 tablet,delayed release ondansetron 8 mg disintegrating 8 mg PO Q6H #14 tabs 04/12/25 tablet promethazine 25 mg rectal 25 mg [place] Q6H PRN nausea and 04/12/25 suppository vomiting #12 ea prednisone 20 mg tablet 40 mg (2 x 20 mg) PO DAILY #10 tabs 05/09/25 Allergies Allergy/AdvReac Type Severity Reaction Status Date / Time bupropion (From Wellbutrin) Allergy Severe caused Verified 05/09/25 09:27 throat swelling Review of Systems Skin/Breast: Reports: rash and pruritus [facility] ED PFSH: Medical History Urticaria History of borderline personality disorder Sedative hypnotic or anxiolytic dependence Suspected 2019-nCoV infection Amphetamine use disorder, severe, in sustained remission, dependence Anterior epistaxis Nasal obstruction Acquired deviated nasal septum Daily headache Opioid use disorder Amphetamine use disorder, severe, dependence Vapes nicotine containing substance Nicotine dependence, cigarettes, uncomplicated Sedative, hypnotic or anxiolytic dependence, in remission Opioid dependence, in remission Amphetamine dependence, in remission Generalized anxiety disorder Major depressive disorder, recurrent, in full remission Surgical History History of appendectomy Family History Other Generalized anxiety disorder Social History Smoking and tobacco/nicotine status: current every day tobacco/nicotine user cigarettes Packs smoked per day: 0.5 Years cigarettes smoked: 17 and e-cigarettes E-Cigarette Details: vaporizer device E-cig/vape details: all the time Quit status (tobacco/nicotine): considering quitting Second hand smoke exposure: Yes Physical Exam Const: COMMON NORMALS: no acute distress, patient oriented x3 and healthy appearing HENMT: COMMON NORMALS: normocephalic and atraumatic HEAD & SCALP: normocephalic and atraumatic Eye: COMMON NORMALS: Equal, round and reactive pupils present and EOMs intact bilaterally PUPIL: Yes Equal, round and reactive pupils present Neck/C-Spine: COMMON NORMALS: full ROM and supple Chest: COMMONS NORMALS: normal inspection of the chest Resp: COMMON NORMALS: normal respiratory effort Cardio: COMMON NORMALS: regular rate, regular rhythm and No murmurs present (Cardio) RATE: regular rate RHYTHM: regular rhythm Extremity: COMMON NORMALS: normal to inspection and full ROM Neuro: COMMON NORMALS: patient oriented x3, moves all extremities and no focal motor deficits Psych: COMMON NORMALS: mental status grossly normal, Normal thought process present and cooperative THOUGHT PROCESS: Normal thought process present Skin: COMMON NORMALS: no wounds NARRATIVE SKIN EXAM: Urticarial rash to trunk and extremities and face Course Vital Signs: Vital signs: Vital Signs Temperature 97.4 F L 05/11/25 08:47 Pulse Rate 120 H 05/11/25 08:47 Respiratory Rate 16 05/11/25 08:47 Blood Pressure 126/69 05/11/25 08:47 Pulse Oximetry 100 05/11/25 08:47 Oxygen Delivery Me thod Room Air 05/11/25 08:47 MDM - Skin/Abscess/Foreign Bdy Medicial Decision Making Patient presents with urticaria likely allergic in nature. She has been well-appearing here no airway involvement no shortness of breath rash. Improving after epi Solu-Medrol Benadryl. She stable for discharge she is continue her prednisone at home she is return if worsening she understands agrees to plan. Medical Records I reviewed the patient's medical records. No radiology studies performed this visit Discharge Plan Discharge Patient Disposition: Home Clinical Impression: Urticaria Condition: Stable Prescriptions: No Action diclofenac sodium 50 mg tablet,delayed release (DR/EC) 50 mg PO BID Qty: 14 0RF topiramate [Topamax] 50 mg tablet 50 mg PO DAILY venlafaxine [Effexor XR] 37.5 mg capsule,extended release 24hr 37.5 mg PO DAILY propranolol 20 mg tablet 20 mg PO TID PRN (Reason: Headache) prednisone 20 mg tablet 40 mg PO DAILY Qty: 10 0RF venlafaxine 75 mg capsule,extended release 24hr 75 mg PO QAM olanzapine 20 mg tablet 20 mg PO BEDTIME promethazine 25 mg suppository 25 mg [place] Q6H PRN (Reason: nausea and vomiting) Qty: 12 0RF ondansetron 8 mg tablet,disintegrating 8 mg PO Q6H Qty: 14 0RF Rx Instructions: Take 1/2-1 tab every 6 hours as needed for nausea and vomiting Discharge Orders: Discharge ED (Routine); Ordered 05/11/25 Ordered By: Saul Ray Referrals: Jose Antonio García MD [Primary Care Provider, Internal Medicine] - 4-7 days Discharge Diet: Advance as tolerated Discharge Activity: Resume usual activity Patient Instructions: Urticaria (ED) Print Language: Croatian Coding Level of Care Code ED Cold Molding Press Operator for Geoffrey Aguirre
[2025-05-11] MEDS: diphenhydrAMINE 50 mg/mL SDV 1mL IVP (09:21)
[2025-05-11] MEDS: methylPREDNISolone sod succ 125 mg/2 mL INJ IVP (09:24)
[2025-05-11 09:54] VITALS: PULSE 92; O2SAT 100
== END 2025-05-11 09:55 | disposition home or self-care (01) ==
PROVIDERS: Emergency Provider Emergency Medicine; PCP Internal Medicine
DX: L50.9 Urticaria, unspecified (principal); F17.210 Nicotine dependence, cigarettes, uncomplicated; F17.290 Nicotine dependence, other tobacco product, uncomplicated
CPT/HCPCS: 96372; 96374; 96375; 99284; J0169; J1200; J2919; J3490